=== PATIENT | male | born 1965 | race Caucasian/White ===

== ENCOUNTER 2019-06-13 11:38 | Emergency (ER) | payer OTHER, MEDICAID, SELFPAY ==
[2019-06-13 11:45] VITALS: BP 137/87; PULSE 58; RESP 18; TEMP 36.4; O2SAT 97; BMI 30.3
--- NOTE | 2019-06-13 11:49 | DI.RAD.S_ITS ---
PROCEDURE: XR HAND RT MIN 3V INDICATIONS: injury/swelling TECHNIQUE: 3 views of the hand(s) acquired. COMPARISON: None. FINDINGS: Bones: No fractures or dislocations. Carpal bones are normally aligned. No suspicious bony lesions. Soft tissues: No suspicious soft tissue calcifications. IMPRESSION: No fracture. No osseous lesion. If symptoms and/or clinical suspicion for pathology persists, further assessment with repeat radiographs (7-10 days) or advanced imaging (e.g. CT, MRI or bone scan) may be helpful. Dictated by: Bina Romero MD, PhD on 06/13/2019 at 12:31 Approved by: Bina Romero MD, PhD on 06/13/2019 at 12:32
--- NOTE | 2019-06-13 12:09 | DI.CT.S_ITS ---
PROCEDURE: CT HEAD/BRAIN WO CON INDICATIONS: dizzy, wordsearching TECHNIQUE: Noncontrast 4.5 mm thick angled axial sections acquired from the foramen magnum to the vertex, with coronal and sagittal reformats. For radiation dose reduction, the following was used: automated exposure control, adjustment of mA and/or kV according to patient size. COMPARISON: None. FINDINGS: Image quality: Excellent. CSF spaces: Basal cisterns are patent. No extra-axial fluid collections. The ventricles are symmetric in size and shape. Brain: No intracranial bleeds or masses. There is cerebral volume loss for age, with resultant ventricular and sulcal prominence. There are periventricular and deep white matter chronic small vessel ischemic changes. There is intracranial internal carotid artery atherosclerosis. Skull and face: Calvarium and visualized facial bones appear intact, without suspicious lesions. Sinuses: Visualized sinuses and mastoids are clear. IMPRESSION: No acute intracranial disease process. Dictated by: Bina Romero MD, PhD on 06/13/2019 at 12:45 Approved by: Bina Romero MD, PhD on 06/13/2019 at 12:56
[2019-06-13 12:24] LABS: Add Manual Diff / Slide Review NO; Basophils Absolute Auto 100 /uL (0-100); Basophils Percent Auto 0.8 % (0-2); Eosinophils Absolute Auto 100 /uL (0-450); Eosinophils Percent Auto 1.5 % (2-4); Hematocrit 42.3 % (41-53); Hemoglobin 14.3 g/dL (13.5-17.5); Lymphocytes Absolute Auto 2200 /uL (1100-4500); Lymphocytes Percent Auto 24.1 % (25-40); Mean Corpuscular HGB Conc 33.7 % (30-36); Mean Corpuscular Hemoglobin 32.3 PG (26-34); Mean Corpuscular Volume 95.8 fL (80-100); Monocytes Absolute Auto 600 /uL (0-900); Monocytes Percent Auto 6.7 % (3-14); Neutrophils Absolute Auto 6200 /uL (1500-7000); Neutrophils Percent Auto 66.9 % (50-75); Platelet Count 211 X10^3/uL (150-400); Red Blood Cell Count 4.42 X10^6/uL (4.5-5.9); Red Cell Distribution Width 13.3 % (11.6-14.8); White Blood Cell Count 9.2 X10^3/uL (4.5-11.0)
[2019-06-13 12:27] LABS: Prothrombin Time 11.1 SECONDS (10.1-12.7)
[2019-06-13 12:30] LABS: PTT Partial Thromboplastin Tim 31 SECONDS (26.4-36.2)
[2019-06-13 12:31] LABS: Alanine Aminotransferase 27 IU/L (21-72); Albumin 3.8 g/dL (3.5-5.0); Albumin Globulin Ratio 1.5 (1.0-2.8); Alkaline Phosphatase 72 U/L (38-126); Aspartate Aminotransferase 32 IU/L (17-59); BUN Creatinine Ratio 14.4 (6-22); Bilirubin Total 0.5 mg/dL (0.2-1.3); Blood Urea Nitrogen 13 mg/dL (9-20); Calcium 8.7 mg/dL (8.4-10.2); Carbon Dioxide 27 mmol/L (22-32); Chloride 109 mmol/L (98-107); Estimated Glomerular Filt Rate > 60.0 mL/min (>60); Globulin 2.6 g/dL (1.7-4.1); Glucose 86 mg/dL (70-100); HEMOLYSIS 23 (0-50); Potassium 4.2 mmol/L (3.4-5.1); Sodium 141 mmol/L (137-145); Total Protein 6.4 g/dL (6.3-8.2)
[2019-06-13 12:39] VITALS: BP 129/91; PULSE 48; RESP 16; O2SAT 98
[2019-06-13 12:43] LABS: Troponin I < 0.012 ng/mL (0.01-0.034)
[2019-06-13 13:00] VITALS: BP 140/77; PULSE 43; RESP 15; O2SAT 100
[2019-06-13] MEDS: SODIUM CHLORIDE 0.9% 1,000 ML 1000 ML IV (13:11)
[2019-06-13] MEDS: KETOROLAC 60 MG/2 ML VIAL 30 MG IV (13:11)
[2019-06-13] MEDS: METOCLOPRAMIDE 10 MG/2 ML INJ 5 MG IV ×2 (13:16→13:54)
[2019-06-13] MEDS: diphenhydrAMINE 50 MG/ML VIAL 25 MG IV ×2 (13:16→13:53)
[2019-06-13 13:32] VITALS: BP 142/89; PULSE 40; RESP 15; O2SAT 99
[2019-06-13] MEDS: DEXAMETHASONE 10 MG/ML VIAL IV (13:54)
--- NOTE | 2019-06-13 14:03 | PC.NURSE ---
Pt states his has had no change at all. Updated provider. Administered additional medications that were ordered. During administration pt asks what he needs to do so he could go home. informed him that we request he give the additional medications time to work. at bedside agrees and verbalizes understanding. Pt still states he wants to go home. Provider notified and states he could leave AMA. Pt updated.
[2019-06-13 14:06] LABS: Magnesium 2.2 mg/dL (1.6-2.3)
[2019-06-13 14:16] LABS: B Type Natriuretic Peptide < 100 (<100)
[2019-06-13 14:37] VITALS: BP 142/89; PULSE 48; O2SAT 98
--- NOTE | 2019-06-13 15:02 | ED.HA ---
HPI - Headache <VIKTOR Younger-BC - Last Filed: 06/13/19 18:05> General Chief Complaint: Headache Stated Complaint: Rt hand pain, head pressure,dizzy Time Seen by Provider: 06/13/19 11:51 Source: patient and family Mode of arrival: ambulatory Limitations: no limitations History of Present Illness HPI Narrative: The patient is a 54-year-old male smoker with history of migraines who presents with his for various complaints. He states he has been dizzy with headaches ongoing for the past several months. He states that when he woke up this morning, the dizziness and headaches not go away. He does have history of migraines but hot has not had 1 in many years. No loss of consciousness. No recent trauma. He denies any chest pain or shortness of breath. He also complains of some hand pain, which started yesterday. He states he caught a football wrong. He not hit his hand on anything. He complains of generalized ache. notes word searching almost ?as if he is drunk.Patient denies any drugs or alcohol. He reiterates that he has been dizzy with headaches for several months, and notes that he woke up this morning with it. His states that he can act dizzy and have headaches. Related Data Home Medications Medication Instructions Recorded Confirmed gabapentin 900 mg PO TID 06/13/19 06/13/19 ibuprofen 1 dose PO PRN PRN 06/13/19 06/13/19 losartan 100 mg PO DAILY 06/13/19 06/13/19 omeprazole 20 mg PO DAILY 06/13/19 06/13/19 Allergies Allergy/AdvReac Type Severity Reaction Status Date / Time ketamine AdvReac Severe Agitated Verified 06/13/19 12:15 Review of Systems <OBEY YoungerBC - Last Filed: 06/13/19 18:05> Review of Systems GENERAL: Denies chills, fatigue, malaise, fever, sweats. HEENT: Denies sinus pain, ear pain, sore throat, difficulty swallowing, dizziness. RESPIRATORY: Denies dyspnea, cough, wheezing, hemoptysis, sputum. CARDIOVASCULAR: Denies chest pain, palpitations, orthopnea, edema, GASTROINTESTINAL: Denies nausea, vomiting, abdominal pain, diarrhea, constipation, melena. : Denies dysuria, frequency, incontinence, hematuria, urinary retention. MUSCULOSKELETAL: See HPI SKIN: Denies rash, skin lesions, or other NEUROLOGIC: See HPI PSYCHIATRIC: No concerning psychosocial issues. 12 point review of systems is negative except for those stated above PFSH <JEFF Younger - Last Filed: 06/13/19 18:05> Medical History Chronic pain (Acute) Hypertension (Acute) Surgical History (Updated 06/13/19 @ 17:55 by JEFF Younger) Status post decompression of compartment syndrome (Acute) Social History Smoking Status: Current every day smoker Social History Smoking Status: Current every day smoker Exam <JEFF Younger - Last Filed: 06/13/19 18:05> Narrative Exam Narrative: GENERAL: This is a well-nourished, well-developed patient, no acute distress HEAD: Atraumatic. Normocephalic. No temporal or scalp tenderness. EYES: Pupils equal round and reactive. Extraocular motions intact. No scleral icterus. No injection or drainage. ENT: Nose without bleeding, purulent drainage or septal hematoma. Throat without erythema, tonsillar hypertrophy or exudate. Uvula midline. Airway patent. NECK: Trachea midline. No JVD or lymphadenopathy. Supple, nontender, no meningeal signs. CARDIOVASCULAR: Bradycardic rate. Regular rhythm. RESPIRATORY: Clear to auscultation. Breath sounds equal bilaterally. No wheezes, rales, or rhonchi. No cough. No increased respiratory effort. No accessory muscle use. GASTROINTESTINAL: Abdomen soft, non-tender, nondistended. No hepato-splenomegaly, or palpable masses. No guarding. Active bowel sounds all 4 quadrants. EXTREMITIES: Full range of motion noted right hand. Positive radial pulse right hand. Capillary refill less than 2 seconds. BACK: Nontender without deformity or crepitance. No flank tenderness. NEURO: AOx3. Clear speech. Oriented to place, year, month, marriage year. Finger-nose test intact. Carr heel test intact. Stable gait. Strength is equal upper and lower extremities bilaterally. SKIN: No rash or erythema. No rash erythema or ecchymosis noted on hand. Initial Vital Signs Initial Vital Signs: Vital Signs Temperature 97.6 F 06/13/19 11:45 Pulse Rate 58 L 06/13/19 11:45 Respiratory Rate 18 06/13/19 11:45 Blood Pressure 137/87 06/13/19 11:45 Pulse Oximetry 97 06/13/19 11:45 <Yamile Austin DO - Last Filed: 06/13/19 19:18> Initial Vital Signs Initial Vital Signs: Vital Signs Temperature 97.6 F 06/13/19 11:45 Pulse Rate 58 L 06/13/19 11:45 Respiratory Rate 18 06/13/19 11:45 Blood Pressure 137/87 06/13/19 11:45 Pulse Oximetry 97 06/13/19 11:45 Scores <JEFF Younger - Last Filed: 06/13/19 18:05> GCS Ted coma scale eye opening: Spontaneous [place] coma scale verbal response: Orientated [place] coma scale motor response: Obey commands Ted coma scale total score: 15 NIH Stroke Scale Level of Conciousness: Alert, keenly responsive Ask month/age: Answers both questions correctly. Open/close eyes, close hand: Performs both tasks correctly Best gaze horizontal: Normal Visual robles: No visual loss Facial palsy: Normal symetrical movement Left arm drift: No drift for full 10 sec Right arm drift: No drift for full 10 sec Left leg drift: No drift for full 10 sec Right leg drift: No drift for full 10 sec Limb ataxia: Absent Sensory on face/arms/legs: Normal, no sensory loss Dysarthria: Normal Extinction or inattention: No abnormality Course <JEFF Younger - Last Filed: 06/13/19 18:05> Orders Ordered: ED Orders 06/13/19 11:49 XR hand RT min 3V Stat 06/13/19 12:09 CT head/brain wo con Stat 06/13/19 12:10 EKG-12 Lead Stat 06/13/19 12:13 B Type Natriuretic Peptide Stat Complete Blood Count AUTO DIFF Stat Comprehensive Metabolic Panel Stat Magnesium Stat Partial Thromboplastin Time Stat Prothrombin Time INR Stat Troponin I Stat Discontinued Medications Dexamethasone (Decadron) 10 mg IV NOW ONE Stop: 06/13/19 13:50 Last Admin: 06/13/19 13:54 Dose: 10 mg Diphenhydramine HCl (Benadryl) 25 mg IV NOW ONE Stop: 06/13/19 13:12 Last Admin: 06/13/19 13:16 Dose: 25 mg Diphenhydramine HCl (Benadryl) 25 mg IV NOW ONE Stop: 06/13/19 13:51 Last Admin: 06/13/19 13:53 Dose: 25 mg Sodium Chloride (Normal Saline 0.9%) 1,000 mls @ 1,000 mls/hr IV BOLUS ONE Stop: 06/13/19 14:03 Last Infusion: 06/13/19 14:27 Dose: 0 mls/hr Admin: 06/13/19 13:11 Dose: 1,000 mls/hr Ketorolac Tromethamine (Toradol) 30 mg IV NOW ONE Stop: 06/13/19 13:00 Last Admin: 06/13/19 13:11 Dose: 30 mg Metoclopramide HCl (Reglan) 5 mg IV NOW ONE Stop: 06/13/19 13:12 Last Admin: 06/13/19 13:16 Dose: 5 mg Metoclopramide HCl (Reglan) 5 mg IV NOW ONE Stop: 06/13/19 13:51 Last Admin: 06/13/19 13:54 Dose: 5 mg Ondansetron HCl (Zofran) 4 mg IV NOW ONE Stop: 06/13/19 12:11 Last Admin: 06/13/19 12:35 Dose: Not Given Vital Signs - 8 hr 06/13/19 11:45 06/13/19 12:39 06/13/19 13:00 Temperature 97.6 F Pulse Rate 58 L 48 L 43 L Respiratory Rate 18 16 15 Blood Pressure 137/87 Blood Pressure [Left Arm] 129/91 H 140/77 Pulse Oximetry 97 98 100 06/13/19 13:32 06/13/19 14:37 Temperature Pulse Rate 40 L 48 L Respiratory Rate 15 Blood Pressure Blood Pressure [Left Arm] 142/89 H 142/89 H Pulse Oximetry 99 98 <Yamile Austin DO - Last Filed: 06/13/19 19:18> Orders Ordered: ED Orders 06/13/19 11:49 XR hand RT min 3V Stat 06/13/19 12:09 CT head/brain wo con Stat 06/13/19 12:10 EKG-12 Lead Stat 06/13/19 12:13 B Type Natriuretic Peptide Stat Complete Blood Count AUTO DIFF Stat Comprehensive Metabolic Panel Stat Magnesium Stat Partial Thromboplastin Time Stat Prothrombin Time INR Stat Troponin I Stat Discontinued Medications Dexamethasone (Decadron) 10 mg IV NOW ONE Stop: 06/13/19 13:50 Last Admin: 06/13/19 13:54 Dose: 10 mg Diphenhydramine HCl (Benadryl) 25 mg IV NOW ONE Stop: 06/13/19 13:12 Last Admin: 06/13/19 13:16 Dose: 25 mg Diphenhydramine HCl (Benadryl) 25 mg IV NOW ONE Stop: 06/13/19 13:51 Last Admin: 06/13/19 13:53 Dose: 25 mg Sodium Chloride (Normal Saline 0.9%) 1,000 mls @ 1,000 mls/hr IV BOLUS ONE Stop: 06/13/19 14:03 Last Infusion: 06/13/19 14:27 Dose: 0 mls/hr Admin: 06/13/19 13:11 Dose: 1,000 mls/hr Ketorolac Tromethamine (Toradol) 30 mg IV NOW ONE Stop: 06/13/19 13:00 Last Admin: 06/13/19 13:11 Dose: 30 mg Metoclopramide HCl (Reglan) 5 mg IV NOW ONE Stop: 06/13/19 13:12 Last Admin: 06/13/19 13:16 Dose: 5 mg Metoclopramide HCl (Reglan) 5 mg IV NOW ONE Stop: 06/13/19 13:51 Last Admin: 06/13/19 13:54 Dose: 5 mg Ondansetron HCl (Zofran) 4 mg IV NOW ONE Stop: 06/13/19 12:11 Last Admin: 06/13/19 12:35 Dose: Not Given Vital Signs - 8 hr 06/13/19 11:45 06/13/19 12:39 06/13/19 13:00 Temperature 97.6 F Pulse Rate 58 L 48 L 43 L Respiratory Rate 18 16 15 Blood Pressure 137/87 Blood Pressure [Left Arm] 129/91 H 140/77 Pulse Oximetry 97 98 100 06/13/19 13:32 06/13/19 14:37 Temperature Pulse Rate 40 L 48 L Respiratory Rate 15 Blood Pressure Blood Pressure [Left Arm] 142/89 H 142/89 H Pulse Oximetry 99 98 MDM - Headache <Yamile Huber P[employer] FINAL INSPECTOR- - Last Filed: 06/13/19 18:05> Lab Data Result diagrams: 06/13/19 12:13 06/13/19 12:13 Lab Results 06/13/19 06/13/19 06/13/19 Range/Units 12:13 12:13 12:13 WBC 9.2 (4.5-11.0) X10^3/uL RBC 4.42 L (4.5-5.9) X10^6/uL Hgb 14.3 (13.5-17.5) g/dL Hct 42.3 (41-53) % MCV 95.8 (80-100) fL MCH 32.3 (26-34) PG MCHC 33.7 (30-36) % RDW 13.3 (11.6-14.8) % Plt Count 211 (150-400) X10^3/uL Neut % (Auto) 66.9 (50-75) % Lymph % (Auto) 24.1 L (25-40) % [place] % (Auto) 6.7 (3-14) % Eos % (Auto) 1.5 L (2-4) % Baso % (Auto) 0.8 (0-2) % Neut # (Auto) 6200 (8516-0786) /uL Lymph # (Auto) 2200 (5441-5473) /uL [place] # (Auto) 600 (0-900) /uL Eos # (Auto) 100 (0-450) /uL Baso # (Auto) 100 (0-100) /uL PT 11.1 (10.1-12.7) SECONDS INR 1.0 (0.9-1.3) APTT 31 (26.4-36.2) SECONDS Sodium 141 (137-145) mmol/L Potassium 4.2 (3.4-5.1) mmol/L Chloride 109 H (98-107) mmol/L Carbon Dioxide 27 (22-32) mmol/L BUN 13 (9-20) mg/dL Creatinine 0.90 (0.66-1.25) mg/dL Estimated GFR > 60.0 (>60) mL/min BUN/Creatinine Ratio 14.4 (6-22) Glucose 86 (70-100) mg/dL Calcium 8.7 (8.4-10.2) mg/dL Magnesium (1.6-2.3) mg/dL Total Bilirubin 0.5 (0.2-1.3) mg/dL AST 32 (17-59) IU/L ALT 27 (21-72) IU/L Alkaline Phosphatase 72 (38-126) U/L Troponin I < 0.012 (0.01-0.034) ng/mL B-Natriuretic Peptide (<100) Total Protein 6.4 (6.3-8.2) g/dL Albumin 3.8 (3.5-5.0) g/dL Globulin 2.6 (1.7-4.1) g/dL Albumin/Globulin Ratio 1.5 (1.0-2.8) 06/13/19 06/13/19 Range/Units 12:13 12:13 WBC (4.5-11.0) X10^3/uL RBC (4.5-5.9) X10^6/uL Hgb (13.5-17.5) g/dL Hct (41-53) % MCV (80-100) fL MCH (26-34) PG MCHC (30-36) % RDW (11.6-14.8) % Plt Count (150-400) X10^3/uL Neut % (Auto) (50-75) % Lymph % (Auto) (25-40) % [place] % (Auto) (3-14) % Eos % (Auto) (2-4) % Baso % (Auto) (0-2) % Neut # (Auto) (9595-4055) /uL Lymph # (Auto) (6261-1314) /uL [place] # (Auto) (0-900) /uL Eos # (Auto) (0-450) /uL Baso # (Auto) (0-100) /uL PT (10.1-12.7) SECONDS INR (0.9-1.3) APTT (26.4-36.2) SECONDS Sodium (137-145) mmol/L Potassium (3.4-5.1) mmol/L Chloride (98-107) mmol/L Carbon Dioxide (22-32) mmol/L BUN (9-20) mg/dL Creatinine (0.66-1.25) mg/dL Estimated GFR (>60) mL/min BUN/Creatinine Ratio (6-22) Glucose (70-100) mg/dL Calcium (8.4-10.2) mg/dL Magnesium 2.2 (1.6-2.3) mg/dL Total Bilirubin (0.2-1.3) mg/dL AST (17-59) IU/L ALT (21-72) IU/L Alkaline Phosphatase (38-126) U/L Troponin I (0.01-0.034) ng/mL B-Natriuretic Peptide < 100 (<100) Total Protein (6.3-8.2) g/dL Albumin (3.5-5.0) g/dL Globulin (1.7-4.1) g/dL Albumin/Globulin Ratio (1.0-2.8) Point of Care Testing Glucose POC [address] scan - head: Radiologist's impression: [address] [address] [address] Scan Report Signed Patient: Alvaro Zimmerman [facility]#: [id number] : 1965Acct:[id number] Age/Sex: 54 / MDate of Service: 06/13/19 Loc: ED Accession Number: [id number] Procedure: CT head/brain wo con Ordering Provider: Yamile Huber [facility] PROCEDURE: CT HEAD/BRAIN WO CON INDICATIONS: dizzy, wordsearching TECHNIQUE: Noncontrast 4.5 mm thick angled axial sections acquired from the foramen magnum to the vertex, with coronal and sagittal reformats. For radiation dose reduction, the following was used: automated exposure control, adjustment of mA and/or kV according to patient size. COMPARISON: None. FINDINGS: Image quality: Excellent. CSF spaces: Basal cisterns are patent. No extra-axial fluid collections. The ventricles are symmetric in size and shape. Brain: No intracranial bleeds or masses. There is cerebral volume loss for age, with resultant ventricular and sulcal prominence. There are periventricular and deep white matter chronic small vessel ischemic changes. There is intracranial internal carotid artery atherosclerosis. Skull and face: Calvarium and visualized facial bones appear intact, without suspicious lesions. Sinuses: Visualized sinuses and mastoids are clear. IMPRESSION: No acute intracranial disease process. Dictated by: Bina Romero MD, PhD on 06/13/2019 at 12:45 Approved by: Bina Romero MD, PhD on 06/13/2019 at 12:56 Hand x-ray: Radiologist's impression: Alvaro Zimmerman 54 M [address] [address] XRay Report Signed Patient: Alvaro Zimmerman MMR#: [id number] : 1965Acct:[id number] Age/Sex: 54 / MDate of Service: 06/13/19 Loc: ED Accession Number: [id number] Procedure: XR hand RT min 3V Ordering Provider: Yamile Austin D.O. PROCEDURE: XR HAND RT MIN 3V INDICATIONS: injury/swelling TECHNIQUE: 3 views of the hand(s) acquired. COMPARISON: None. FINDINGS: Bones: No fractures or dislocations. Carpal bones are normally aligned. No suspicious bony lesions. Soft tissues: No suspicious soft tissue calcifications. IMPRESSION: No fracture. No osseous lesion. If symptoms and/or clinical suspicion for pathology persists, further assessment with repeat radiographs (7-10 days) or advanced imaging (e.g. CT, MRI or bone scan) may be helpful. Dictated by: Bina Romero MD, PhD on 06/13/2019 at 12:31 Approved by: Bina Romero MD, PhD on 06/13/2019 at 12:32 ECG Data Attestation: I personally reviewed and interpreted this ECG as follows: Interpretation: Sinus bradycardia. Ventricular rate 40. No ST elevation depression. No ectopy noted. viewed by Dr Austin [facility] Narrative Medical decision making narrative: The patient is a 54-year-old male who presents with various symptoms with his . His dizziness and headache has been ongoing for several months. He has an NIH of 0 and negative troponin, and negative head CT. He does have history of migraines, and thus I treated him for a migraine. He felt much improved after this. He also had a negative x-ray of his hand. I discussed at length the options of further imaging, further lab work, repeat troponin and the patient requested to go home. He was hemodynamically stable nontoxic appearing throughout his stay in the emergency department. I did connect him with the [facility] health human resources supervisor in order to help facilitate primary care for the patient. Again the patient declined any further imaging or workup and requested to go home. His GCS is 15, any feels much improved after his headache cocktail. The patient was discharged to his . He has no questions or concerns upon discharge and states understanding of return precautions for any concern of heart attack or stroke. No questions or concerns upon discharge. He was noted to be a bit bradycardic throughout his stay in the emergency department, but maintain his blood pressure and not feel dizzy upon ambulating. He denies any dizziness after has had a cough to help. Encouraged patient to follow up with PCP regarding this. <Yamile Austin, - Last Filed: 06/13/19 19:18> Lab Data Lab Results 06/13/19 06/13/19 06/13/19 Range/Units 12:13 12:13 12:13 WBC 9.2 (4.5-11.0) X10^3/uL RBC 4.42 L (4.5-5.9) X10^6/uL Hgb 14.3 (13.5-17.5) g/dL Hct 42.3 (41-53) % MCV 95.8 (80-100) fL MCH 32.3 (26-34) PG MCHC 33.7 (30-36) % RDW 13.3 (11.6-14.8) % Plt Count 211 (150-400) X10^3/uL Neut % (Auto) 66.9 (50-75) % Lymph % (Auto) 24.1 L (25-40) % [place] % (Auto) 6.7 (3-14) % Eos % (Auto) 1.5 L (2-4) % Baso % (Auto) 0.8 (0-2) % Neut # (Auto) 6200 (0118-8595) /uL Lymph # (Auto) 2200 (7790-1942) /uL [place] # (Auto) 600 (0-900) /uL Eos # (Auto) 100 (0-450) /uL Baso # (Auto) 100 (0-100) /uL PT 11.1 (10.1-12.7) SECONDS INR 1.0 (0.9-1.3) APTT 31 (26.4-36.2) SECONDS Sodium 141 (137-145) mmol/L Potassium 4.2 (3.4-5.1) mmol/L Chloride 109 H (98-107) mmol/L Carbon Dioxide 27 (22-32) mmol/L BUN 13 (9-20) mg/dL Creatinine 0.90 (0.66-1.25) mg/dL Estimated GFR > 60.0 (>60) mL/min BUN/Creatinine Ratio 14.4 (6-22) Glucose 86 (70-100) mg/dL Calcium 8.7 (8.4-10.2) mg/dL Magnesium (1.6-2.3) mg/dL Total Bilirubin 0.5 (0.2-1.3) mg/dL AST 32 (17-59) IU/L ALT 27 (21-72) IU/L Alkaline Phosphatase 72 (38-126) U/L Troponin I < 0.012 (0.01-0.034) ng/mL B-Natriuretic Peptide (<100) Total Protein 6.4 (6.3-8.2) g/dL Albumin 3.8 (3.5-5.0) g/dL Globulin 2.6 (1.7-4.1) g/dL Albumin/Globulin Ratio 1.5 (1.0-2.8) 06/13/19 06/13/19 Range/Units 12:13 12:13 WBC (4.5-11.0) X10^3/uL RBC (4.5-5.9) X10^6/uL Hgb (13.5-17.5) g/dL Hct (41-53) % MCV (80-100) fL MCH (26-34) PG MCHC (30-36) % RDW (11.6-14.8) % Plt Count (150-400) X10^3/uL Neut % (Auto) (50-75) % Lymph % (Auto) (25-40) % [place] % (Auto) (3-14) % Eos % (Auto) (2-4) % Baso % (Auto) (0-2) % Neut # (Auto) (9982-0170) /uL Lymph # (Auto) (3490-4199) /uL [place] # (Auto) (0-900) /uL Eos # (Auto) (0-450) /uL Baso # (Auto) (0-100) /uL PT (10.1-12.7) SECONDS INR (0.9-1.3) APTT (26.4-36.2) SECONDS Sodium (137-145) mmol/L Potassium (3.4-5.1) mmol/L Chloride (98-107) mmol/L Carbon Dioxide (22-32) mmol/L BUN (9-20) mg/dL Creatinine (0.66-1.25) mg/dL Estimated GFR (>60) mL/min BUN/Creatinine Ratio (6-22) Glucose (70-100) mg/dL Calcium (8.4-10.2) mg/dL Magnesium 2.2 (1.6-2.3) mg/dL Total Bilirubin (0.2-1.3) mg/dL AST (17-59) IU/L ALT (21-72) IU/L Alkaline Phosphatase (38-126) U/L Troponin I (0.01-0.034) ng/mL B-Natriuretic Peptide < 100 (<100) Total Protein (6.3-8.2) g/dL Albumin (3.5-5.0) g/dL Globulin (1.7-4.1) g/dL Albumin/Globulin Ratio (1.0-2.8) Point of Care Testing Glucose POC 86 Discharge Plan Departure Patient Disposition: Home Clinical Impression: Dizziness, Hand pain, right Headache Qualifiers: Headache type: unspecified Headache chronicity pattern: acute headache Intractability: not intractable Qualified Code(s): R51 - Headache Discharge Date/Time: 06/13/19 15:18 Interventions: ED Discharge Assessment Last Done: 06/13/19 15:17 Instructions: How To Perform RICE (Rest, Ice, Compress, Elevate), DI for Headache, DI for Dizziness-Nonvertigo, DI for Hand Pain Activity Restrictions/Additional Instructions: Today we did testing on your blood to check her electrolytes, check for heart damage, check your kidney function. We also did a head CT, and an EKG. Luckily everything came back well. We treated you for headache with good result. Please establish a primary care provider. I have given you contact information for the health human resources supervisor. They can help you identify primary care provider. Please call them. If needed, you can also do follow-up with our walk-in clinic. Go home and rest, be sure to stay hydrated. Come back to the emergency department for any acute concerns such as concern of chest pain, heart attack etc. Prescriptions: No Action ibuprofen 200 mg Tablet 1 dose PO PRN PRN (Reason: pain or headache) RF: 0 omeprazole 20 mg Capsule,Delayed Release(Dr/Ec) 20 mg PO DAILY RF: 0 losartan 100 mg Tablet 100 mg PO DAILY RF: 0 gabapentin 300 mg capsule 900 mg PO TID RF: 0 Referrals: Located Within [facility] Resources [Outside] Stand Alone Forms: Work Release Note <Yamile Austin DO - Last Filed: 06/13/19 19:18> Cosign ED Attending Cosignature Attestation: I was immediately available in the department for consultation. This documentation has been reviewed and I agree with assessment and plan. Supervised by Yamile Austin DO
--- NOTE | 2019-06-13 15:06 | ED_ITS ---
HPI - Headache <JEFF Younger - Last Filed: 06/13/19 18:05> General Chief Complaint: Headache Stated Complaint: Rt hand pain, head pressure,dizzy Time Seen by Provider: 06/13/19 11:51 Source: patient and family Mode of arrival: ambulatory Limitations: no limitations History of Present Illness HPI Narrative: The patient is a 54-year-old male smoker with history of migraines who presents with his for various complaints. He states he has been dizzy with headaches ongoing for the past several months. He states that when he woke up this morning, the dizziness and headaches not go away. He does have history of migraines but hot has not had 1 in many years. No loss of consc iousness. No recent trauma. He denies any chest pain or shortness of breath. He also complains of some hand pain, which started yesterday. He states he caught a football wrong. He not hit his hand on anything. He complains of generalized ache. notes word searching almost ?as if he is drunk.Patient denies any drugs or alcohol. He reiterates that he has been dizzy with headaches for several months, and notes that he woke up this morning with it. His states that he can act dizzy and have headaches. Related Data Home Medications Medication Instructions Recorded Confirmed gabapentin 900 mg PO TID 06/13/19 06/13/19 ibuprofen 1 dose PO PRN PRN 06/13/19 06/13/19 losartan 100 mg PO DAILY 06/13/19 06/13/19 omeprazole 20 mg PO DAILY 06/13/19 06/13/19 Allergies Allergy/AdvReac Type Severity Reaction Status Date / Time ketamine AdvReac Severe Agitated Verified 06/13/19 12:15 Review of Systems <JEFF Younger - Last Filed: 06/13/19 18:05> Review of Systems GENERAL: Denies chills, fatigue, malaise, fever, sweats. HEENT: Denies sinus pain, ear pain, sore throat, difficulty swallowing, dizziness. RESPIRATORY: Denies dyspnea, cough, wheezing, hemoptysis, sputum. CARDIOVASCULAR: Denies chest pain, palpitations, orthopnea, edema, GASTROINTESTINAL: Denies nausea, vomiting, abdominal pain, diarrhea, constipation, melena. : Denies dysuria, frequency, incontinence, hematuria, urinary retention. MUSCULOSKELETAL: See HPI SKIN: Denies rash, skin lesions, or other NEUROLOGIC: See HPI PSYCHIATRIC: No concerning psychosocial issues. 12 point review of systems is negative except for those stated above PFSH <JEFF Younger - Last Filed: 06/13/19 18:05> Medical History Chronic pain (Acute) Hypertension (Acute) Surgical History (Updated 06/13/19 @ 17:55 by JEFF Younger) Status post decompression of compartment syndrome (Acute) Social History Smoking Status: Current every day smoker Social History Smoking Status: Current every day smoker Exam <JEFF Younger - Last Filed: 06/13/19 18:05> Narrative Exam Narrative: GENERAL: This is a well-nourished, well-developed patient, no acute distress HEAD: Atraumatic. Normocephalic. No temporal or scalp tenderness. EYES: Pupils equal round and reactive. Extraocular motions intact. No scleral icterus. No injection or drainage. ENT: Nose without bleeding, purulent drainage or septal hematoma. Throat without erythema, tonsillar hypertrophy or exudate. Uvula midline. Airway patent. NECK: Trachea midline. No JVD or lymphadenopathy. Supple, nontender, no meningeal signs. CARDIOVASCULAR: Bradycardic rate. Regular rhythm. RESPIRATORY: Clear to auscultation. Breath sounds equal bilaterally. No wheezes, rales, or rhonchi. No cough. No increased respiratory effort. No accessory muscle use. GASTROINTESTINAL: Abdomen soft, non-tender, nondistended. No hepato- splenomegaly, or palpable masses. No guarding. Active bowel sounds all 4 quadrants. EXTREMITIES: Full range of motion noted right hand. Positive radial pulse right hand. Capillary refill less than 2 seconds. BACK: Nontender without deformity or crepitance. No flank tenderness. NEURO: AOx3. Clear speech. Oriented to place, year, month, marriage year. Finger-nose test intact. Carr heel test intact. Stable gait. Strength is equal upper and lower extremities bilaterally. SKIN: No rash or erythema. No rash erythema or ecchymosis noted on hand. Initial Vital Signs Initial Vital Signs: Vital Signs Temperature 97.6 F 06/13/19 11:45 Pulse Rate 58 L 06/13/19 11:45 Respiratory Rate 18 06/13/19 11:45 Blood Pressure 137/87 06/13/19 11:45 Pulse Oximetry 97 06/13/19 11:45 <Yamile Austin DO - Last Filed: 06/13/19 19:18> Initial Vital Signs Initial Vital Signs: Vital Signs Temperature 97.6 F 06/13/19 11:45 Pulse Rate 58 L 06/13/19 11:45 Respiratory Rate 18 06/13/19 11:45 Blood Pressure 137/87 06/13/19 11:45 Pulse Oximetry 97 06/13/19 11:45 Scores <JEFF Younger - Last Filed: 06/13/19 18:05> GCS Kaycee coma scale eye opening: Spontaneous Ted coma scale verbal response: Orientated Ted coma scale motor response: Obey commands Kaycee coma scale total score: 15 NIH Stroke Scale Level of Conciousness: Alert, keenly responsive Ask month/age: Answers both questions correctly. Open/close eyes, close hand: Performs both tasks correctly Best gaze horizontal: Normal Visual robles: No visual loss Facial palsy: Normal symetrical movement Left arm drift: No drift for full 10 sec Right arm drift: No drift for full 10 sec Left leg drift: No drift for full 10 sec Right leg drift: No drift for full 10 sec Limb ataxia: Absent Sensory on face/arms/legs: Normal, no sensory loss Dysarthria: Normal Extinction or inattention: No abnormality Course <JEFF Younger - Last Filed: 06/13/19 18:05> Orders Ordered: ED Orders 06/13/19 11:49 XR hand RT min 3V Stat 06/13/19 12:09 CT head/brain wo con Stat 06/13/19 12:10 EKG-12 Lead Stat 06/13/19 12:13 B Type Natriuretic Peptide Stat Complete Blood Count AUTO DIFF Stat Comprehensive Metabolic Panel Stat Magnesium Stat Partial Thromboplastin Time Stat Prothrombin Time INR Stat Troponin I Stat Discontinued Medications Dexamethasone (Decadron) 10 mg IV NOW ONE Stop: 06/13/19 13:50 Last Admin: 06/13/19 13:54 Dose: 10 mg Diphenhydramine HCl (Benadryl) 25 mg IV NOW ONE Stop: 06/13/19 13:12 Last Admin: 06/13/19 13:16 Dose: 25 mg Diphenhydramine HCl (Benadryl) 25 mg IV NOW ONE Stop: 06/13/19 13:51 Last Admin: 06/13/19 13:53 Dose: 25 mg Sodium Chloride (Normal Saline 0.9%) 1,000 mls @ 1,000 mls/hr IV BOLUS ONE Stop: 06/13/19 14:03 Last Infusion: 06/13/19 14:27 Dose: 0 mls/hr Admin: 06/13/19 13:11 Dose: 1,000 mls/hr Ketorolac Tromethamine (Toradol) 30 mg IV NOW ONE Stop: 06/13/19 13:00 Last Admin: 06/13/19 13:11 Dose: 30 mg Metoclopramide HCl (Reglan) 5 mg IV NOW ONE Stop: 06/13/19 13:12 Last Admin: 06/13/19 13:16 Dose: 5 mg Metoclopramide HCl (Reglan) 5 mg IV NOW ONE Stop: 06/13/19 13:51 Last Admin: 06/13/19 13:54 Dose: 5 mg Ondansetron HCl (Zofran) 4 mg IV NOW ONE Stop: 06/13/19 12:11 Last Admin: 06/13/19 12:35 Dose: Not Given Vital Signs - 8 hr 06/13/19 11:45 06/13/19 12:39 06/13/19 13:00 Temperature 97.6 F Pulse Rate 58 L 48 L 43 L Respiratory Rate 18 16 15 Blood Pressure 137/87 Blood Pressure [Left Arm] 129/91 H 140/77 Pulse Oximetry 97 98 100 06/13/19 13:32 06/13/19 14:37 Temperature Pulse Rate 40 L 48 L Respiratory Rate 15 Blood Pressure Blood Pressure [Left Arm] 142/89 H 142/89 H Pulse Oximetry 99 98 <Yamile Austin DO - Last Filed: 06/13/19 19:18> Orders Ordered: ED Orders 06/13/19 11:49 XR hand RT min 3V Stat 06/13/19 12:09 CT head/brain wo con Stat 06/13/19 12:10 EKG-12 Lead Stat 06/13/19 12:13 B Type Natriuretic Peptide Stat Complete Blood Count AUTO DIFF Stat Comprehensive Metabolic Panel Stat Magnesium Stat Partial Thromboplastin Time Stat Prothrombin Time INR Stat Troponin I Stat Discontinued Medications Dexamethasone (Decadron) 10 mg IV NOW ONE Stop: 06/13/19 13:50 Last Admin: 06/13/19 13:54 Dose: 10 mg Diphenhydramine HCl (Benadryl) 25 mg IV NOW ONE Stop: 06/13/19 13:12 Last Admin: 06/13/19 13:16 Dose: 25 mg Diphenhydramine HCl (Benadryl) 25 mg IV NOW ONE Stop: 06/13/19 13:51 Last Admin: 06/13/19 13:53 Dose: 25 mg Sodium Chloride (Normal Saline 0.9%) 1,000 mls @ 1,000 mls/hr IV BOLUS ONE Stop: 06/13/19 14:03 Last Infusion: 06/13/19 14:27 Dose: 0 mls/hr Admin: 06/13/19 13:11 Dose: 1,000 mls/hr Ketorolac Tromethamine (Toradol) 30 mg IV NOW ONE Stop: 06/13/19 13:00 Last Admin: 06/13/19 13:11 Dose: 30 mg Metoclopramide HCl (Reglan) 5 mg IV NOW ONE Stop: 06/13/19 13:12 Last Admin: 06/13/19 13:16 Dose: 5 mg Metoclopramide HCl (Reglan) 5 mg IV NOW ONE Stop: 06/13/19 13:51 Last Admin: 06/13/19 13:54 Dose: 5 mg Ondansetron HCl (Zofran) 4 mg IV NOW ONE Stop: 06/13/19 12:11 Last Admin: 06/13/19 12:35 Dose: Not Given Vital Signs - 8 hr 06/13/19 11:45 06/13/19 12:39 06/13/19 13:00 Temperature 97.6 F Pulse Rate 58 L 48 L 43 L Respiratory Rate 18 16 15 Blood Pressure 137/87 Blood Pressure [Left Arm] 129/91 H 140/77 Pulse Oximetry 97 98 100 06/13/19 13:32 06/13/19 14:37 Temperature Pulse Rate 40 L 48 L Respiratory Rate 15 Blood Pressure Blood Pressure [Left Arm] 142/89 H 142/89 H Pulse Oximetry 99 98 MDM - Headache <Yamile HuberLORENZOP- - Last Filed: 06/13/19 18:05> Lab Data Result diagrams: 06/13/19 12:13 06/13/19 12:13 Lab Results 06/13/19 06/13/19 06/13/19 Range/Units 12:13 12:13 12:13 WBC 9.2 (4.5-11.0) X10^3/uL RBC 4.42 L (4.5-5.9) X10^6/uL Hgb 14.3 (13.5-17.5) g/dL Hct 42.3 (41-53) % MCV 95.8 (80-100) fL MCH 32.3 (26-34) PG MCHC 33.7 (30-36) % RDW 13.3 (11.6-14.8) % Plt Count 211 (150-400) X10^3/uL Neut % (Auto) 66.9 (50-75) % Lymph % (Auto) 24.1 L (25-40) % Talbot % (Auto) 6.7 (3-14) % Eos % (Auto) 1.5 L (2-4) % Baso % (Auto) 0.8 (0-2) % Neut # (Auto) 6200 (0324-6599) /uL Lymph # (Auto) 2200 (6388-2084) /uL Talbot # (Auto) 600 (0-900) /uL Eos # (Auto) 100 (0-450) /uL Baso # (Auto) 100 (0-100) /uL PT 11.1 (10.1-12.7) SECONDS INR 1.0 (0.9-1.3) APTT 31 (26.4-36.2) SECONDS Sodium 141 (137-145) mmol/L Potassium 4.2 (3.4-5.1) mmol/L Chloride 109 H (98-107) mmol/L Carbon Dioxide 27 (22-32) mmol/L BUN 13 (9-20) mg/dL Creatinine 0.90 (0.66-1.25) mg/dL Estimated GFR > 60.0 (>60) mL/min BUN/Creatinine Ratio 14.4 (6-22) Glucose 86 (70-100) mg/dL Calcium 8.7 (8.4-10.2) mg/dL Magnesium (1.6-2.3) mg/dL Total Bilirubin 0.5 (0.2-1.3) mg/dL AST 32 (17-59) IU/L ALT 27 (21-72) IU/L Alkaline Phosphatase 72 (38-126) U/L Troponin I < 0.012 (0.01-0.034) ng/mL B-Natriuretic Peptide (<100) Total Protein 6.4 (6.3-8.2) g/dL Albumin 3.8 (3.5-5.0) g/dL Globulin 2.6 (1.7-4.1) g/dL Albumin/Globulin Ratio 1.5 (1.0-2.8) 06/13/19 06/13/19 Range/Units 12:13 12:13 WBC (4.5-11.0) X10^3/uL RBC (4.5-5.9) X10^6/uL Hgb (13.5-17.5) g/dL Hct (41-53) % MCV (80-100) fL MCH (26-34) PG MCHC (30-36) % RDW (11.6-14.8) % Plt Count (150-400) X10^3/uL Neut % (Auto) (50-75) % Lymph % (Auto) (25-40) % Talbot % (Auto) (3-14) % Eos % (Auto) (2-4) % Baso % (Auto) (0-2) % Neut # (Auto) (4852-0106) /uL Lymph # (Auto) (6590-1125) /uL Talbot # (Auto) (0-900) /uL Eos # (Auto) (0-450) /uL Baso # (Auto) (0-100) /uL PT (10.1-12.7) SECONDS INR (0.9-1.3) APTT (26.4-36.2) SECONDS Sodium (137-145) mmol/L Potassium (3.4-5.1) mmol/L Chloride (98-107) mmol/L Carbon Dioxide (22-32) mmol/L BUN (9-20) mg/dL Creatinine (0.66-1.25) mg/dL Estimated GFR (>60) mL/min BUN/Creatinine Ratio (6-22) Glucose (70-100) mg/dL Calcium (8.4-10.2) mg/dL Magnesium 2.2 (1.6-2.3) mg/dL Total Bilirubin (0.2-1.3) mg/dL AST (17-59) IU/L ALT (21-72) IU/L Alkaline Phosphatase (38-126) U/L Troponin I (0.01-0.034) ng/mL B-Natriuretic Peptide < 100 (<100) Total Protein (6.3-8.2) g/dL Albumin (3.5-5.0) g/dL Globulin (1.7-4.1) g/dL Albumin/Globulin Ratio (1.0-2.8) Point of Care Testing Glucose POC [address] scan - head: Radiologist's impression: [place] [address] CT Scan Report Signed Patient: Alvaro Zimmerman MMR#: [id number] : 1965Acct:[id number] Age/Sex: 54 / MDate of Service: 06/13/19 Loc: ED Accession Number: [id number] Procedure: CT head/brain wo con Ordering Provider: Yamile Huber PROCEDURE: CT HEAD/BRAIN WO CON INDICATIONS: dizzy, wordsearching TECHNIQUE: Noncontrast 4.5 mm thick angled axial sections acquired from the foramen magnum to the vertex, with coronal and sagittal reformats. For radiation dose reduction, the following was used: automated exposure control, adjustment of mA and/or kV according to patient size. COMPARISON: None. FINDINGS: Image quality: Excellent. CSF spaces: Basal cisterns are patent. No extra-axial fluid collections. The ventricles are symmetric in size and shape. Brain: No intracranial bleeds or masses. There is cerebral volume loss for age, with resultant ventricular and sulcal prominence. There are periventricular and deep white matter chronic small vessel ischemic changes. There is intracranial internal carotid artery atherosclerosis. Skull and face: Calvarium and visualized facial bones appear intact, without suspicious lesions. Sinuses: Visualized sinuses and mastoids are clear. IMPRESSION: No acute intracranial disease process. Dictated by: Bina Romero MD, PhD on 06/13/2019 at 12:45 Approved by: Bina Romero MD, PhD on 06/13/2019 at 12:56 Hand x-ray: Radiologist's impression: Alvaro Zimmerman 54 M [address] [address] XRay Report Signed Patient: Alvaro Zimmerman MMR#: [id number] : 1965Acct:[id number] Age/Sex: 54 / MDate of Service: 06/13/19 Loc: ED Accession Number: [id number] Procedure: XR hand RT min 3V Ordering Provider: Yamile Austin D.O. PROCEDURE: XR HAND RT MIN 3V INDICATIONS: injury/swelling TECHNIQUE: 3 views of the hand(s) acquired. COMPARISON: None. FINDINGS: Bones: No fractures or dislocations. Carpal bones are normally aligned. No suspicious bony lesions. Soft tissues: No suspicious soft tissue calcifications. IMPRESSION: No fracture. No osseous lesion. If symptoms and/or clinical suspicion for pathology persists, further assessment with repeat radiographs (7-10 days) or advanced imaging (e.g. CT, MRI or bone scan) may be helpful. Dictated by: Bina Romero MD, PhD on 06/13/2019 at 12:31 Approved by: Bina Romero MD, PhD on 06/13/2019 at 12:32 ECG Data Attestation: I personally reviewed and interpreted this ECG as follows: Interpretation: Sinus bradycardia. Ventricular rate 40. No ST elevation depression. No ectopy noted. viewed by Dr Austin [facility] Narrative Medical decision making narrative: The patient is a 54-year-old male who presents with various symptoms with his . His dizziness and headache has been ongoing for several months. He has an NIH of 0 and negative troponin, and negative head CT. He does have history of migraines, and thus I treated him for a migraine. He felt much improved after this. He also had a negative x-ray of his hand. I discussed at length the options of further imaging, further lab work, repeat troponin and the patient requested to go home. He was hemodynamically stable nontoxic appearing throughout his stay in the emergency department. I did connect him with the [facility] health human resources team member in order to help facilitate primary care for the patient. Again the patient declined any further imaging or workup and requested to go home. His GCS is 15, any feels much improved after his headache cocktail. The patient was discharged to his . He has no questions or concerns upon discharge and states understanding of return precautions for any concern of heart attack or stroke. No questions or concerns upon discharge. He was noted to be a bit bradycardic throughout his stay in the emergency department, but maintain his blood pressure and not feel dizzy upon ambulating. He denies any dizziness after has had a cough to help. Encouraged patient to follow up with PCP regarding this. <Yamile Austin, - Last Filed: 06/13/19 19:18> Lab Data Lab Results 06/13/19 06/13/19 06/13/19 Range/Units 12:13 12:13 12:13 WBC 9.2 (4.5-11.0) X10^3/uL RBC 4.42 L (4.5-5.9) X10^6/uL Hgb 14.3 (13.5-17.5) g/dL Hct 42.3 (41-53) % MCV 95.8 (80-100) fL MCH 32.3 (26-34) PG MCHC 33.7 (30-36) % RDW 13.3 (11.6-14.8) % Plt Count 211 (150-400) X10^3/uL Neut % (Auto) 66.9 (50-75) % Lymph % (Auto) 24.1 L (25-40) % Talbot % (Auto) 6.7 (3-14) % Eos % (Auto) 1.5 L (2-4) % Baso % (Auto) 0.8 (0-2) % Neut # (Auto) 6200 (4901-7499) /uL Lymph # (Auto) 2200 (4681-3177) /uL Talbot # (Auto) 600 (0-900) /uL Eos # (Auto) 100 (0-450) /uL Baso # (Auto) 100 (0-100) /uL PT 11.1 (10.1-12.7) SECONDS INR 1.0 (0.9-1.3) APTT 31 (26.4-36.2) SECONDS Sodium 141 (137-145) mmol/L Potassium 4.2 (3.4-5.1) mmol/L Chloride 109 H (98-107) mmol/L Carbon Dioxide 27 (22-32) mmol/L BUN 13 (9-20) mg/dL Creatinine 0.90 (0.66-1.25) mg/dL Estimated GFR > 60.0 (>60) mL/min BUN/Creatinine Ratio 14.4 (6-22) Glucose 86 (70-100) mg/dL Calcium 8.7 (8.4-10.2) mg/dL Magnesium (1.6-2.3) mg/dL Total Bilirubin 0.5 (0.2-1.3) mg/dL AST 32 (17-59) IU/L ALT 27 (21-72) IU/L Alkaline Phosphatase 72 (38-126) U/L Troponin I < 0.012 (0.01-0.034) ng/mL B-Natriuretic Peptide (<100) Total Protein 6.4 (6.3-8.2) g/dL Albumin 3.8 (3.5-5.0) g/dL Globulin 2.6 (1.7-4.1) g/dL Albumin/Globulin Ratio 1.5 (1.0-2.8) 06/13/19 06/13/19 Range/Units 12:13 12:13 WBC (4.5-11.0) X10^3/uL RBC (4.5-5.9) X10^6/uL Hgb (13.5-17.5) g/dL Hct (41-53) % MCV (80-100) fL MCH (26-34) PG MCHC (30-36) % RDW (11.6-14.8) % Plt Count (150-400) X10^3/uL Neut % (Auto) (50-75) % Lymph % (Auto) (25-40) % Talbot % (Auto) (3-14) % Eos % (Auto) (2-4) % Baso % (Auto) (0-2) % Neut # (Auto) (2618-1360) /uL Lymph # (Auto) (6617-4886) /uL Talbot # (Auto) (0-900) /uL Eos # (Auto) (0-450) /uL Baso # (Auto) (0-100) /uL PT (10.1-12.7) SECONDS INR (0.9-1.3) APTT (26.4-36.2) SECONDS Sodium (137-145) mmol/L Potassium (3.4-5.1) mmol/L Chloride (98-107) mmol/L Carbon Dioxide (22-32) mmol/L BUN (9-20) mg/dL Creatinine (0.66-1.25) mg/dL Estimated GFR (>60) mL/min BUN/Creatinine Ratio (6-22) Glucose (70-100) mg/dL Calcium (8.4-10.2) mg/dL Magnesium 2.2 (1.6-2.3) mg/dL Total Bilirubin (0.2-1.3) mg/dL AST (17-59) IU/L ALT (21-72) IU/L Alkaline Phosphatase (38-126) U/L Troponin I (0.01-0.034) ng/mL B-Natriuretic Peptide < 100 (<100) Total Protein (6.3-8.2) g/dL Albumin (3.5-5.0) g/dL Globulin (1.7-4.1) g/dL Albumin/Globulin Ratio (1.0-2.8) Point of Care Testing Glucose POC 86 Discharge Plan Departure Patient Disposition: Home Clinical Impression: Dizziness, Hand pain, right Headache Qualifiers: Headache type: unspecified Headache chronicity pattern: acute headache Intractability: not intractable Qualified Code(s): R51 - Headache Discharge Date/Time: 06/13/19 15:18 Interventions: ED Discharge Assessment Last Done: 06/13/19 15:17 Instructions: How To Perform RICE (Rest, Ice, Compress, Elevate), DI for Headache, DI for Dizziness-Nonvertigo, DI for Hand Pain Activity Restrictions/Additional Instructions: Today we did testing on your blood to check her electrolytes, check for heart damage, check your kidney function. We also did a head CT, and an EKG. Luckily everything came back well. We treated you for headache with good result. Please establish a primary care provider. I have given you contact information for the health human resources team member. They can help you identify primary care provider. Please call them. If needed, you can also do follow-up with our walk-in clinic. Go home and rest, be sure to stay hydrated. Come back to the emergency department for any acute concerns such as concern of chest pain, heart attack etc. Prescriptions: No Action ibuprofen 200 mg Tablet 1 dose PO PRN PRN (Reason: pain or headache) RF: 0 omeprazole 20 mg Capsule,Delayed Release(Dr/Ec) 20 mg PO DAILY RF: 0 losartan 100 mg Tablet 100 mg PO DAILY RF: 0 gabapentin 300 mg capsule 900 mg PO TID RF: 0 Referrals: [facility] [Outside] Stand Alone Forms: Work Release Note <Yamile Austin DO - Last Filed: 06/13/19 19:18> Cosign ED Attending Cosignature Attestation: I was immediately available in the department for consultation. This documentation has been reviewed and I agree with assessment and plan. Supervised by Yamile Austin DO
== END 2019-06-13 15:18 | disposition home or self-care (01) ==
PROVIDERS: Emergency Provider Nurse Practitioner Family
DX: R51 Headache (principal); R42 Dizziness and giddiness; M79.641 Pain in right hand
CPT/HCPCS: 36591; 70450; 73130; 80053; 82962; 83735; 83880; 84484; 85025; 85610; 85730; 93005; 93010; 96361; 96374; 96375; 96376; 99283; 99285; J1100; J1200; J1885; J2765

== ENCOUNTER 2019-10-01 20:46 | Emergency (ER) | payer SELFPAY ==
[2019-10-01 20:56] VITALS: BP 178/120; PULSE 60; RESP 20; TEMP 36.8; O2SAT 99
[2019-10-01 21:22] VITALS: BP 155/108; PULSE 55; RESP 20; O2SAT 100
--- NOTE | 2019-10-01 21:45 | ED.BACK ---
HPI - Back Pain/Injury General Chief Complaint: Back Pain/Injury Stated Complaint: rt sided numbness, weakness Time Seen by Provider: 10/01/19 21:45 Source: patient Mode of arrival: Ambulatory Limitations: no limitations History of Present Illness HPI Narrative: This is a 54-year-old male comes to the emergency with complaint of right-sided back pain that he describes as more lower back. He states he does not really have a lot of abdominal pain. He has felt little bit dizzy, he has felt a little bit nauseated. He has not had any vomiting. He describes some tingling in his right arm. But he states that he always gets tingling in symptoms in his right arm when he has had diverticulitis on the right side in the past. His family states they do not understand why but this is what has happened. He also has a history of pain in his right lower extremity secondary to compartment syndrome he has not had any increase in pain in his legs or numbness or tingling. Patient denies any testicular pain. he denies any changes with bowel movements. He states he has been urinating and finding that he is urinating more frequently and feels like it is more than normal. He has also been drinking a lot of Gatorade according to his much more than normal. Patient denies any rash or skin changes. He states movement does make it worse. He has had some back issues in the past but not chronically. He does take gabapentin for pain regularly and ibuprofen but more for his lower extremity which he had compartment syndrome. He had a takes losartan, omeprazole. He has had right shoulder surgery, gallbladder surgery, and surgeries for his lower extremity/compartment syndrome. He does smoke tobacco states he is trying to decrease his a usage. Denies alcohol, denies illicit. Related Data Home Medications Medication Instructions Recorded Confirmed gabapentin 900 mg PO TID 06/13/19 06/13/19 ibuprofen 1 dose PO PRN PRN 06/13/19 06/13/19 losartan 100 mg PO DAILY 06/13/19 06/13/19 omeprazole 20 mg PO DAILY 06/13/19 06/13/19 Previous Rx's Medication Instructions Recorded oxycodone-acetaminophen [Percocet] 1 tab PO Q6H PRN #10 tab 10/02/19 Allergies Allergy/AdvReac Type Severity Reaction Status Date / Time ketamine AdvReac Severe Agitated Verified 06/13/19 12:15 Review of Systems Review of Systems ROS Unobtainable: All systems reviewed & are unremarkable except as noted in HPI and below Constitutional Constitutional: Denies chills, Denies fever(s), Denies lethargy and Denies weakness Eyes Eyes: Denies change in vision ENT Ears, Nose, Mouth, and Throat: Denies nasal congestion Cardiovascular Cardiovascular: Denies chest pain, Denies edema, Denies irregular heart rhythm, Denies lightheadedness, Denies palpitations, Denies dyspnea, Denies dyspnea on exertion and Denies orthopnea Respiratory Respiratory: Denies change in phlegm color, Denies chest congestion, Denies cough, Denies dyspnea and Denies dyspnea on exertion Gastrointestinal Gastrointestinal: Denies abdominal pain, Denies melena, Denies hematochezia, Denies change in bowel habits, Denies constipation, Denies diarrhea, Reports nausea and Denies vomiting Genitourinary Genitourinary: Denies hematuria, Denies difficulty urinating, Denies genital pain, Denies dysuria, Denies flank pain, Denies scrotal swelling, Denies testicular pain, Reports urinary frequency, Denies urinary hesitancy, Denies urinary incontinence and Denies urinary urgency Musculoskeletal Musculoskeletal: Reports as per HPI, Reports back pain, Denies muscle weakness and Reports tingling (chronic in leg) Integumentary/Breasts Skin/Breast: Denies rash Neurologic Neurologic: Reports as per HPI, Denies focal weakness, Denies sensory deficit, Reports tingling (chronic in leg) and Denies weakness Endocrine Endocrine: Denies palpitations Patient History Medical History (Updated 10/02/19 @ 00:35 by Yamile Austin DO) Chronic pain (Acute) Compartment syndrome (Acute) Hypertension (Acute) Surgical History Status post decompression of compartment syndrome (Acute) Social History Smoking Status: Current every day smoker alcohol intake frequency: other Substance Use Type: does not use Exam Narrative Exam Narrative: GENERAL: Alert and oriented x three, obese male in mild distress. HEENT: Head normocephalic, atraumatic, EOMI, pupils reactive, face symmetric, moist mucous membranes NECK: Supple, full range of motion CARDIOVASCULAR: Regular rate and rhythm without murmurs, rubs or gallops. RESPIRATORY: Breath sounds equal bilaterally, no wheezes rales or rhonchi. ABDOMEN: Soft, positive for moderate right lower quadrant tenderness as well as some mild right upper quadrant. Normoactive bowel sounds all 4 quadrants. No guarding or rebound, rigidity, no mass : Positive for bilateral CVA tenderness. BACK: No cervical, thoracic or lumbar vertebral point tenderness. Patient has decreased range of motion, patient is quite uncomfortable being moved into a sitting up position. Patient's gait is [antalgic/normal]. Rectal exam is deferred. Muscle strength is 5/5 in lower extremities. EXTREMITIES: Normal range of motion, no clubbing or edema. Neurovascularly intact NEUROLOGICAL: Cranial nerves II through XII grossly intact. Moving all extremities SKIN: Warm, dry, no petechiae, no rashes or lesions. Initial Vital Signs Initial Vital Signs: Vital Signs Temperature 98.2 F 10/01/19 20:56 Pulse Rate 60 10/01/19 20:56 Respiratory Rate 20 10/01/19 20:56 Blood Pressure 178/120 H 10/01/19 20:56 Pulse Oximetry 99 10/01/19 20:56 Course Orders Ordered: ED Orders 10/01/19 21:10 Complete Blood Count AUTO DIFF Stat Comprehensive Metabolic Panel Stat Lipase Stat 10/01/19 21:30 Urine Microscopic Stat 10/01/19 22:03 CT abdomen pelvis w con Stat Discontinued Medications Diazepam (Valium) 10 mg PO NOW ONE Stop: 10/01/19 23:19 Last Admin: 10/01/19 23:31 Dose: 10 mg Documented by: VIVIANA Hydromorphone HCl (Dilaudid) 1 mg IV NOW ONE Stop: 10/01/19 23:19 Last Admin: 10/01/19 23:31 Dose: 1 mg Documented by: MIKIFFIE Hydromorphone HCl (Dilaudid) 1 mg IV NOW ONE Stop: 10/02/19 00:31 Last Admin: 10/02/19 00:40 Dose: 1 mg Documented by: GABRIEL Sodium Chloride (Normal Saline 0.9%) 1,000 mls @ 1,000 mls/hr IV BOLUS ONE Stop: 10/01/19 23:01 Last Infusion: 10/01/19 23:39 Dose: 0 mls/hr Documented by: Admin: 10/01/19 22:17 Dose: 1,000 mls/hr Documented by: EVERETT Ketorolac Tromethamine (Toradol) 30 mg IV NOW ONE Stop: 10/01/19 22:03 Last Admin: 10/01/19 22:18 Dose: 30 mg Documented by: EVERETT Morphine Sulfate (Morphine) 4 mg IV NOW ONE Stop: 10/01/19 22:54 Last Admin: 10/01/19 22:57 Dose: 4 mg Documented by: EVERETT Ondansetron HCl (Zofran) 4 mg IV NOW ONE Stop: 10/01/19 22:03 Last Admin: 10/01/19 22:18 Dose: 4 mg Documented by: EVERETT Oxycodone/Acetaminophen (Endocet 5/325 Prepack) 1 bottle MISC SEEINSTR ONE Stop: 10/02/19 00:31 Last Admin: 10/02/19 00:40 Dose: 1 bottle Documented by: GABRIEL Vital Signs Vital signs: Vital Signs - 8 hr 10/01/19 20:56 10/01/19 21:22 10/01/19 23:10 Temperature 98.2 F Pulse Rate 60 55 L 60 Respiratory Rate 20 20 18 Blood Pressure 178/120 H Blood Pressure [Right Arm] 155/108 H 190/108 H Pulse Oximetry 99 100 99 10/02/19 00:13 10/02/19 00:59 Temperature Pulse Rate 65 65 Respiratory Rate 18 18 Blood Pressure 177/119 H Blood Pressure [Right Arm] 186/127 H Pulse Oximetry 100 98 MDM - Back Pain/Injury Lab Data Attestation: I reviewed the patient's lab results. Result diagrams: 10/01/19 21:10 10/01/19 21:10 Labs: Lab Results 10/01/19 10/01/19 10/01/19 Range/Units 21:10 21:10 21:30 WBC 11.7 H (4.5-11.0) X10^3/uL RBC 4.52 (4.5-5.9) X10^6/uL Hgb 14.6 (13.5-17.5) g/dL Hct 42.7 (41-53) % MCV 94.6 (80-100) fL MCH 32.3 (26-34) PG MCHC 34.2 (30-36) % RDW 13.1 (11.6-14.8) % Plt Count 242 (150-400) X10^3/uL Neut % (Auto) 71.7 (50-75) % Lymph % (Auto) 19.2 L (25-40) % [place] % (Auto) 7.5 (3-14) % Eos % (Auto) 1.1 L (2-4) % Baso % (Auto) 0.5 (0-2) % Neut # (Auto) 8400 H (6829-8321) /uL Lymph # (Auto) 2200 (9581-7005) /uL [place] # (Auto) 900 (0-900) /uL Eos # (Auto) 100 (0-450) /uL Baso # (Auto) 100 (0-100) /uL Sodium 140 (137-145) mmol/L Potassium 4.2 (3.4-5.1) mmol/L Chloride 105 (98-107) mmol/L Carbon Dioxide 26 (22-32) mmol/L BUN 15 (9-20) mg/dL Creatinine 0.90 (0.66-1.25) mg/dL Estimated GFR > 60.0 (>60) mL/min BUN/Creatinine Ratio 16.7 (6-22) Glucose 106 H (70-100) mg/dL Calcium 8.7 (8.4-10.2) mg/dL Total Bilirubin 0.7 (0.2-1.3) mg/dL AST 43 (17-59) IU/L ALT 25 (<50) IU/L Alkaline Phosphatase 61 (38-126) U/L Total Protein 7.0 (6.3-8.2) g/dL Albumin 4.3 (3.5-5.0) g/dL Globulin 2.7 (1.7-4.1) g/dL Albumin/Globulin Ratio 1.6 (1.0-2.8) Lipase 86 (23-300) U/L Urine RBC 0-1/hpf (0-5/HPF) Urine WBC 1-5/hpf (0-5/HPF) Ur Squamous Epith Cells 1-5 /hpf (0-5/HPF) Urine Bacteria Occasional (0-1) (None) Ur Culture Indicated? Cult not indicated Urine Dip Bedside Urine Glucose Negative Bedside Urine Ketone +/- 5 Urine Specific [place] 1.015 Bedside Urine Occult Blood - Negative Bedside Urine Protein +/- 15 Bedside Urine Urobilinogen 0.2 Bedside Urine Nitrite - Negative Bedside Urine Leukocytes +/- [address] scan - abdomen: Radiologist's impression: Mild descending and sigmoid colon diverticulosis without diverticulitis. No free intraperitoneal air or fluid. Mild left hydro with nondilated ureter may reflect chronic UPJ obstruction. No cortical atrophy, scarring or thinning. 13 x 12 mm left adrenal nodule. Consider outpatient nonemergent MR CT workup. Year old thickening of the urinary bladder. Edema surrounds urinary bladder and prostate. Cystitis or prostatitis may be present. Other chronic changes noted above. MDM Narrative Medical decision making narrative: Patient has some tenderness on back exam although not over the vertebral column. He also has tenderness in his abdominal exam. He has had a history colitis and diverticulitis as well. So plan for lab work, imaging and repeated evaluation. Patient's lab work does not show any abnormalities that clearly delineate his cause of pain, has a mildly elevated white count 11.7, electrolytes are normal, glucose is 106, patient's abdominal labs are normal. urine microscopy shows 1 5 WBCs, 1-5 squamous epithelial. Patient's urine was cultured S patient CT shows bladder with mural thickening and surrounding edema. Patient has moderately enlarged prostate gland with surrounding edema. He has no pathologic pelvic it lymphadenopathy this could potentially be causes pain although his pain is more right lower back little bit right lower quadrant and sort of generalized abdomen. Patient has normal lungs, unremarkable upper abdomen. Normal caliber abdominal aorta with no pathologic emily aortic adenopathy. He does have a adrenal nodule that him and his were informed about and recommended to have follow-up for evaluation although my suspicion that this is the cause of his pain is low. He has no mass or nephrolithiasis. He has some mild left hydro with a nondilated ureter and small extra renal pelvis on the right patient hydro is not consistent with the location of his pain. He has felt stool throughout the colon but without mass or inflammation, diverticulosis but no diverticulitis. No thickening of the bowel, no focal gastric lesions free intraperitoneal air or fluid. He has some moderate spondylosis of the lumbar spine but no fracture destructive osseous lesions any right femoral neck bone island. Findings were discussed patient I suspect that his pain is related more to back issues. Has chronic pain in his right lower extremity but this is not significantly increased from his normal. He does not have any red flag symptoms today. He has been hypertensive but is not follow-up with primary care and likely needs to have his medication restarted. Patient has recently decreased his gabapentin is only taking 3 tablets in the morning and not 3 times daily which may be related to his flaring pain. He has been taking ibuprofen. He had minimal to no improvement with Toradol, morphine was minimally improvement Dilaudid was helpful but pain did not return. He appears uncomfortable but improved. Discussed with patient we will do an additional dose with plan for her chronic pain medication at home for the short term and plantar increase his gabapentin, lidocaine patches and signs and symptoms to return for emergently. Both him and his feel comfortable with this plan. Discharge Plan Departure Patient Disposition: Home Clinical Impression: Right-sided back pain Qualifiers: Chronicity: unspecified Sciatica presence: without sciatica Discharge Date/Time: 10/02/19 00:59 Instructions: DI for Low Back Pain Activity Restrictions/Additional Instructions: Follow up with your physician this week. If you do not have a primary care you can call [phone] for the health division human resources manager and they can help you get set up with a primary care provider. You may use lidocaine patches as needed to back. You may use this with her other medications. I would recommend increasing your gabapentin back up to your regular does and taking it 3 times daily rather than once daily. Discussed with her physician about other options besides gabapentin if you do not like the side effects. Take pain medication as prescribed, this medication can make you sleepy do not drive, perform hazardous activities or make any major decisions while taking this medication. Your urine culture is pending, this takes 48-72 hours to return if positive you should expect a phone call. Your CT today does show a left adrenal nodule, recommend nonemergent MR/CT workup, this is an unlikely cause of your pain today. Discussed with her primary care physician and they can set up this evaluation. Return to the emergency department for fevers greater 100.4 F, rapidly worsening pain, passing out, persistent vomiting, black or bloody stools, inability urinate or other new or concerning symptoms. Prescriptions: New oxycodone-acetaminophen [Percocet] 5-325 mg tablet 1 tab PO Q6H PRN (Reason: pain) Qty: 10 RF: 0 No Action ibuprofen 200 mg Tablet 1 dose PO PRN PRN (Reason: pain or headache) RF: 0 omeprazole 20 mg Capsule,Delayed Release(Dr/Ec) 20 mg PO DAILY RF: 0 losartan 100 mg Tablet 100 mg PO DAILY RF: 0 gabapentin 300 mg capsule 900 mg PO TID RF: 0 Stand Alone Forms: Work Release Note
[2019-10-01 21:53] LABS: Bacteria Urine Occasional (0-1); Culture Indicated Urine Cult Not Indicated; RBC Urine 0-1/HPF (0-5/HPF); Squamous Epithelial Cell Urine 1-5 /HPF (0-5/HPF); WBC Urine 1-5/HPF (0-5/HPF)
--- NOTE | 2019-10-01 22:03 | DI.CT.S_ITS ---
PROCEDURE: CT ABDOMEN PELVIS W CON INDICATIONS: Right back and abdominal pain, hx back pain and colitis/diverticulitis TECHNIQUE: After the administration of intravenous contrast, 5 mm thick sections acquired from the diaphragm to the symphysis. 5 mm coronal and sagittal reformats were acquired. For radiation dose reduction, the following was used: automated exposure control, adjustment of mA and/or kV according to patient size. COMPARISON: None. FINDINGS: Image quality: Excellent. ABDOMEN: Lung bases: Lung bases are clear. Heart size is normal. Solid organs: There is a small subcapsular hypodensity anteriorly in the left hepatic lobe measuring up to 0.4 cm. Finding is too small to characterize on the current study. The gallbladder appears within normal limits without calcified gallstones. Biliary system is non-dilated. Pancreas enhances normally. No peripancreatic fat stranding or fluid collections. No pancreatic duct dilatation. The spleen is normal in size. There is a left adrenal nodule measuring up to approximately 1.6 cm. There is mild dilatation of the left renal collecting system with a calcified stone visualized. The left ureter is nondistended. No right hydronephrosis. Peritoneum and bowel: Bowel loops demonstrate normal wall thickness and caliber. The appendix is normal in appearance. There is colonic diverticulosis without acute diverticulitis. No free fluid or air. Nodes and vessels: No retroperitoneal or mesenteric adenopathy by size criteria. Aorta and inferior vena cava are normal in size. Miscellaneous: No ventral hernias. PELVIS: Genitourinary: There is mild concentric bladder wall thickening with adjacent mild pericystic fat stranding suggestive of a cystitis. The prostate is mildly enlarged and heterogeneous in appearance. Miscellaneous: No inguinal hernias or adenopathy. Bones: No suspicious bony lesions. No vertebral body compression fractures. IMPRESSION: 1. Colonic diverticulosis without acute diverticulitis. 2. Mild concentric bladder wall thickening with adjacent pericystic fat stranding suggestive of a nonspecific cystitis. Recommend correlation with urinalysis. 3. Mild dilatation of the left renal collecting system without ureteral distention. Findings are suggestive of a mild UPJ obstruction. 4. Indeterminate left adrenal nodule. Further evaluation may be obtained with an adrenal protocol CT or MRI. 5. Small subcapsular hypodensity anteriorly in the left hepatic lobe. The finding is too small to characterize. Although this statistically likely represents a cyst, a small mass lesion cannot be excluded. Consider followup evaluation with a liver protocol CT or MRI if indicated. Dictated by: Chris Alfaro M.D. on 10/02/2019 at 7:48 Approved by: Chris Alfaro M.D. on 10/02/2019 at 7:58
[2019-10-01 22:08] LABS: Add Manual Diff / Slide Review NO; Basophils Absolute Auto 100 /uL (0-100); Basophils Percent Auto 0.5 % (0-2); Eosinophils Absolute Auto 100 /uL (0-450); Eosinophils Percent Auto 1.1 % (2-4); Hematocrit 42.7 % (41-53); Hemoglobin 14.6 g/dL (13.5-17.5); Lymphocytes Absolute Auto 2200 /uL (1100-4500); Lymphocytes Percent Auto 19.2 % (25-40); Mean Corpuscular HGB Conc 34.2 % (30-36); Mean Corpuscular Hemoglobin 32.3 PG (26-34); Mean Corpuscular Volume 94.6 fL (80-100); Monocytes Absolute Auto 900 /uL (0-900); Monocytes Percent Auto 7.5 % (3-14); Neutrophils Absolute Auto 8400 /uL (1500-7000); Neutrophils Percent Auto 71.7 % (50-75); Platelet Count 242 X10^3/uL (150-400); Red Blood Cell Count 4.52 X10^6/uL (4.5-5.9); Red Cell Distribution Width 13.1 % (11.6-14.8); White Blood Cell Count 11.7 X10^3/uL (4.5-11.0)
[2019-10-01 22:13] LABS: Alanine Aminotransferase 25 IU/L (<50); Albumin 4.3 g/dL (3.5-5.0); Albumin Globulin Ratio 1.6 (1.0-2.8); Alkaline Phosphatase 61 U/L (38-126); Aspartate Aminotransferase 43 IU/L (17-59); BUN Creatinine Ratio 16.7 (6-22); Bilirubin Total 0.7 mg/dL (0.2-1.3); Blood Urea Nitrogen 15 mg/dL (9-20); Calcium 8.7 mg/dL (8.4-10.2); Carbon Dioxide 26 mmol/L (22-32); Chloride 105 mmol/L (98-107); Estimated Glomerular Filt Rate > 60.0 mL/min (>60); Globulin 2.7 g/dL (1.7-4.1); Glucose 106 mg/dL (70-100); HEMOLYSIS 19 (0-50); Lipase 86 U/L (23-300); Potassium 4.2 mmol/L (3.4-5.1); Sodium 140 mmol/L (137-145)
[2019-10-01] MEDS: SODIUM CHLORIDE 0.9% 1,000 ML 1000 ML IV (22:17)
[2019-10-01] MEDS: ONDANSETRON 4 MG/2 ML INJ IV (22:18)
[2019-10-01] MEDS: KETOROLAC 60 MG/2 ML VIAL 30 MG IV (22:18)
[2019-10-01] MEDS: MORPHINE 4 MG/ML INJ IV (22:57)
[2019-10-01 23:10] VITALS: BP 190/108; PULSE 60; RESP 18; O2SAT 99
[2019-10-01] MEDS: diazePAM 5 MG TABLET 10 MG PO (23:31)
[2019-10-01] MEDS: HYDROMORPHONE 1 MG INJ IV (23:31)
--- NOTE | 2019-10-02 00:04 | PC.NURSE ---
he told me his pain got worse after medicating with dilaudid and valium.I notified .
[2019-10-02 00:13] VITALS: BP 186/127; PULSE 65; RESP 18; O2SAT 100
[2019-10-02] MEDS: OXYCODONE/APAP 5/325 PREPACK 1 BOTTLE MISC (00:40)
[2019-10-02] MEDS: HYDROMORPHONE 1 MG INJ IV (00:40)
[2019-10-02 00:59] VITALS: BP 177/119; PULSE 65; RESP 18; O2SAT 98
== END 2019-10-02 00:59 | disposition home or self-care (01) ==
PROVIDERS: Emergency Provider Emergency Medicine
DX: M54.9 Dorsalgia, unspecified (principal); I10 Essential (primary) hypertension; R42 Dizziness and giddiness; R11.0 Nausea
CPT/HCPCS: 74177; 80053; 81003; 81015; 83690; 85025; 96361; 96374; 96375; 96376; 99283; 99284; J1170; J1885; J2270; J2405; Q9967

== ENCOUNTER → 2020-01-24 10:39 | Outpatient (CLI) | payer OTHER, SELFPAY ==
[2020-01-24 11:16] LABS: Add Manual Diff / Slide Review NO; Basophils Absolute Auto 100 /uL (0-100); Basophils Percent Auto 0.7 % (0-2); Eosinophils Absolute Auto 300 /uL (0-450); Eosinophils Percent Auto 3.3 % (2-4); Hematocrit 46.1 % (41-53); Hemoglobin 15.5 g/dL (13.5-17.5); Lymphocytes Absolute Auto 2200 /uL (1100-4500); Lymphocytes Percent Auto 25.8 % (25-40); Mean Corpuscular HGB Conc 33.6 % (30-36); Mean Corpuscular Hemoglobin 32.2 PG (26-34); Mean Corpuscular Volume 95.8 fL (80-100); Monocytes Absolute Auto 900 /uL (0-900); Monocytes Percent Auto 10.1 % (3-14); Neutrophils Absolute Auto 5200 /uL (1500-7000); Neutrophils Percent Auto 60.1 % (50-75); Platelet Count 242 X10^3/uL (150-400); Red Blood Cell Count 4.81 X10^6/uL (4.5-5.9); Red Cell Distribution Width 13.7 % (11.6-14.8); White Blood Cell Count 8.6 X10^3/uL (4.5-11.0)
[2020-01-24 11:25] LABS: Alanine Aminotransferase 25 IU/L (<50); Albumin 4.6 g/dL (3.5-5.0); Albumin Globulin Ratio 1.6 (1.0-2.8); Alkaline Phosphatase 62 U/L (38-126); Amylase 114 U/L (30-110); Aspartate Aminotransferase 37 IU/L (17-59); BUN Creatinine Ratio 20.9 (6-22); Blood Urea Nitrogen 19 mg/dL (9-20); Calcium 9.4 mg/dL (8.4-10.2); Carbon Dioxide 30 mmol/L (22-32); Chloride 103 mmol/L (98-107); Creatine Kinase 264 U/L (55-170); Estimated Glomerular Filt Rate > 60.0 mL/min (>60); Globulin 2.9 g/dL (1.7-4.1); Glucose 104 mg/dL (70-100); HEMOLYSIS < 15 (0-50); Lipase 165 U/L (23-300); Sodium 139 mmol/L (137-145); Total Protein 7.5 g/dL (6.3-8.2)
== END ==
PROVIDERS: PCP Family Medicine; Referring Provider Nurse Practitioner Family; Visit Provider Nurse Practitioner Family
DX: Z00.00 Encounter for general adult medical examination without abnormal findings (principal); K57.90 Diverticulosis of intestine, part unspecified, without perforation or abscess without bleeding; R10.9 Unspecified abdominal pain; Z87.19 Personal history of other diseases of the digestive system; G89.29 Other chronic pain; M79.604 Pain in right leg; T79.A0XA Compartment syndrome, unspecified, initial encounter
CPT/HCPCS: 36415; 80053; 82150; 82550; 83690; 85025

== ENCOUNTER → 2020-01-31 12:19 | Outpatient (CLI) | payer OTHER, SELFPAY ==
--- NOTE | 2020-01-31 14:37 | DI.CT.S_ITS ---
PROCEDURE: CT ABDOMEN PELVIS W CON INDICATIONS: abdominal pain, history diverticulitis TECHNIQUE: After the administration of oral and intravenous contrast, 5 mm thick sections acquired from the diaphragms to the symphysis. 5 mm thick coronal and sagittal reformats were performed. For radiation dose reduction, the following was used: automated exposure control, adjustment of mA and/or kV according to patient size. COMPARISON: [facility], CT, CT ABDOMEN PELVIS W CON, 10/01/2019, 22:06. FINDINGS: Image quality: Excellent. ABDOMEN: Lung bases: Lung bases are clear. Heart size is normal. Solid organs: Liver is normal in size and enhancement. There is a stable subcentimeter hypodense nodule in the anterior liver capsule, as on series 2 image 22. Gallbladder has been removed. Biliary system is non-dilated. Pancreas enhances normally. Spleen is normal in size and enhancement. Incidental note is made of an accessory splenule along the hilum of the primary spleen. 1.5 cm left adrenal nodule again seen. No right adrenal nodules. Kidneys are normal in size and enhancement, without hydronephrosis. A prominent left renal pelvis is again seen. Peritoneum and bowel: Diverticulosis is seen, without findings of active diverticulitis. Stomach, small bowel, and colon loops are normal in caliber and wall thickness. No free fluid or air. Incidental note is made of a normal-appearing appendix. Nodes and vessels: No retroperitoneal or mesenteric adenopathy. Aorta and inferior vena cava are normal in caliber. Miscellaneous: No ventral hernias. PELVIS: Genitourinary: Mild circumferential bladder wall thickening is seen. Miscellaneous: No inguinal adenopathy. Bilateral fat containing inguinal hernias are seen, left larger than right. Bones: No suspicious bony lesions. No vertebral body compression fractures. IMPRESSION: Diverticulosis is seen, without findings of active diverticulitis. Mild circumferential bladder wall thickening is seen. Please correlate with bladder outlet obstruction. Differential diagnosis includes cystitis. Prominent left renal pelvis. Please consider mild UPJ obstruction. Stable subcentimeter nodule along the anterior aspect of the liver. Although nonspecific and too small to definitively characterize, this most likely relates to a cyst or hemangioma. Attention should be paid to this nodule on followup imaging. Nonspecific 1.5 cm left adrenal nodule again seen. Incidental note is made of: Cholecystectomy Normal appendix Bilateral fat containing inguinal hernias, left larger than right Dictated by: Rosales Meng M.D. on 01/31/2020 at 14:17 Approved by: Rosales Meng M.D. on 01/31/2020 at 14:22
== END ==
PROVIDERS: PCP Family Medicine; Referring Provider Nurse Practitioner Family; Visit Provider Nurse Practitioner Family
DX: R10.9 Unspecified abdominal pain (principal); K57.90 Diverticulosis of intestine, part unspecified, without perforation or abscess without bleeding; K40.20 Bilateral inguinal hernia, without obstruction or gangrene, not specified as recurrent; E27.9 Disorder of adrenal gland, unspecified; K76.9 Liver disease, unspecified; Z87.19 Personal history of other diseases of the digestive system; Z90.49 Acquired absence of other specified parts of digestive tract
CPT/HCPCS: 74177; Q9967

== ENCOUNTER → 2020-02-19 15:15 | Outpatient (CLI) | payer OTHER, SELFPAY ==
--- NOTE | 2020-02-19 15:19 | DI.RAD.S_ITS ---
PROCEDURE: XR LUMBAR SPINE 2-3V INDICATIONS: Progressive lower back pain with right-sided radiculopathy TECHNIQUE: 3 views of the lumbar spine were acquired. COMPARISON: None. FINDINGS: Bones: 5 [id number] vertebrae are present. There is slight dextroscoliotic bony alignment. No vertebral body compression fractures. No suspicious bony lesions. Soft tissues: Overlying bowel gas pattern is normal. No suspicious soft tissue calcifications. IMPRESSION: Slight dextroscoliosis centered at the L1 level of the LS-spine, no compression fracture found. Mild degenerative disc disease, mild facet osteoarthritis over the upper half of the LS-spine and mild to moderate such degeneration of the lower half. Dictated by: Dex Jason M.D. on 02/19/2020 at 15:57 Approved by: Dex Jason M.D. on 02/19/2020 at 15:58
== END ==
PROVIDERS: PCP Family Medicine; Referring Provider Family Medicine; Visit Provider Family Medicine
DX: M54.5 Low back pain (principal); M79.604 Pain in right leg; M51.16 Intervertebral disc disorders with radiculopathy, lumbar region; M47.26 Other spondylosis with radiculopathy, lumbar region; M41.86 Other forms of scoliosis, lumbar region
CPT/HCPCS: 72100

== ENCOUNTER → 2020-03-27 09:31 | Outpatient (CLI) | payer OTHER, SELFPAY ==
[2020-03-27 10:39] LABS: Creatinine Urine Random 192.2 mg/dL
[2020-03-27 10:41] LABS: Cholesterol 203 mg/dL (140-199); HDL Cholesterol 43 mg/dL (40-60); LDL Cholesterol Calculated 126 mg/dL (<100); Triglycerides 170 mg/dL (35-150)
[2020-03-27 10:45] LABS: Microalbumi Creatinin Ratio Ur 8.3 ug/mg CR (<30); Microalbumin Urine Random 1.6 mg/dL (0-1.6)
[2020-03-27 11:10] LABS: Prostate Specific Antigen Scrn 0.348 ng/mL (0.1-4.0)
== END ==
PROVIDERS: PCP Family Medicine; Referring Provider Student in an Organized Health Care Education/Training Program; Visit Provider Student in an Organized Health Care Education/Training Program
DX: Z13.220 Encounter for screening for lipoid disorders (principal); Z12.5 Encounter for screening for malignant neoplasm of prostate; E66.9 Obesity, unspecified; G45.9 Transient cerebral ischemic attack, unspecified; I10 Essential (primary) hypertension
CPT/HCPCS: 36415; 80061; 82043; 82570; 83036; G0103

== ENCOUNTER 2020-06-08 09:21 | Emergency (ER) | payer OTHER, SELFPAY ==
[2020-06-08] VITALS (8 sets, daily range): BP systolic 129–169; BP diastolic 75–102; PULSE 54–64; RESP 12–18; TEMP 36.9; O2SAT 96–98
--- NOTE | 2020-06-08 10:43 | DI.CT.S_ITS ---
PROCEDURE: CT LUMBAR SPINE WO CON INDICATIONS: severe low back pain TECHNIQUE: Noncontrast 3 mm thick sections acquired from the T12 level to the sacrum. Sagittal and coronal reformats were constructed. For radiation dose reduction, the following was used: automated exposure control. COMPARISON: None. FINDINGS: Image quality: Excellent. Bones: Six non rib-bearing vertebra. Normal vertebral body height and bony alignment. Normal disc spacing. Anterior bridging osteophytes between L1, L2, and L3. Mild facet arthropathy at L4-5, L5-6, and L6-S1. No vertebral body fractures or abnormal morphology. Mild circumferential disc bulge at L4-5 and mild ligamentum flavum hypertrophy cause mild central canal stenosis. Mild diffuse disc bulge and ligamentum flavum hypertrophy cause moderate central canal stenosis at L5-6. Soft tissues: No retroperitoneal masses or hematomas. Visualized aorta is normal in caliber. IMPRESSION: 1. Mild moderate central canal stenosis L4-5 and L5-6 secondary to degenerative disc and facet joint changes. 2. No fractures or significant malalignment. 3. 6 lumbar vertebral bodies. Dictated by: Michaela Castellano M.D. on 06/08/2020 at 10:42 Approved by: Michaela Castellano M.D. on 06/08/2020 at 10:48
--- NOTE | 2020-06-08 10:45 | DI.CT.S_ITS ---
PROCEDURE: CT ABDOMEN PELVIS WO CON INDICATIONS: severe low back and CVA pain r/o stone TECHNIQUE: Noncontrast 5 mm thick sections acquired from the diaphragms to the symphysis. 5 mm coronal and sagittal reformats were then performed. For radiation dose reduction, the following was used: automated exposure control, adjustment of mA and/or kV according to patient size. COMPARISON: [facility], CT, CT ABDOMEN PELVIS W CON, 01/31/2020, 14:03. FINDINGS: Image quality: Excellent. ABDOMEN: Lung bases: Lung bases are clear. Heart size is normal. Solid organs: Liver is normal in size. Mildly heterogeneous hepatic attenuation. Subcentimeter, subcapsular anterior hypodensity in the liver is stable. Gallbladder is surgically absent . Pancreas is normal in contours. Spleen is normal in size. There is a splenule caudal to the hilum. Mild diffuse lobulated low-density thickening of the left adrenal gland and to a lesser extent the right. No discrete adrenal nodules. Kidneys are normal in size, without hydronephrosis or nephrolithiasis. No perinephric inflammation. Peritoneum and bowel: Unenhanced bowel loops demonstrate normal wall thickness and caliber. Duodenal diverticulum arising from the 3rd portion. Diverticulosis of the distal descending and proximal sigmoid. No free fluid or air. Nodes and vessels: No retroperitoneal or mesenteric adenopathy by size criteria. Aorta and inferior vena cava are normal in caliber. Miscellaneous: No ventral hernias. PELVIS: Genitourinary: Bladder wall thickness is normal. There is a chronic rounded/punctate calcification anterolaterally along the urinary bladder wall to the left of midline. The prostate gland size is at the upper limits of normal and contains coarse calcification. Miscellaneous: No inguinal hernias or adenopathy. Bones: No suspicious bony lesions. No vertebral body compression fractures. IMPRESSION: 1. No evidence of new urinary calcification or obstructive uropathy. Left extra renal pelvis is less prominent compared to the prior study. 2. Diverticulosis. 3. Chronic urinary bladder wall calcification. Dictated by: Michaela Castellano M.D. on 06/08/2020 at 10:33 Approved by: Michaela Castellano M.D. on 06/08/2020 at 10:41
--- NOTE | 2020-06-08 10:47 | ED.BACK ---
HPI - Back Pain/Injury General Chief Complaint: Back Pain/Injury Stated Complaint: Back pain Time Seen by Provider: 06/08/20 10:34 Source: patient and family History of Present Illness HPI Narrative: CC: severe left lower back pain HPI: The patient is a 55-year-old male who presents to the emergency department with severe low back pain that is 10/10 in intensity. He states that the pain is a dull achy crampy discomfort which radiates to his left hip and pelvis. He denies any fall or injury. He states that the pain started approximately 3-4 days ago and was mild and has progressively become worse. It was worse last night and this morning became intolerable. He has not had this pain before. He denies having kidney stones before or any fall or injury to his back. He denies any lifting bending over straining or stretching. He has had no shooting pains or numbness or tingling weakness or paralysis in his legs. He has not noted any dysuria hematuria urinary frequency or blood in his urine. He has had no fever chills or sweats. He has had some mild chest discomfort but notes shortness of breath arm cough palpitations or dizziness. He denies vomiting or change in bowel habits but has had nausea. He denies being a diabetic but is prediabetic. He has no hypertension and no heart disease. He states that his pain is 9.5-10 over 10. The pain is sometimes worse with movement and twisting. Related Data Home Medications Medication Instructions Recorded Confirmed omeprazole 20 mg PO DAILY 06/13/19 05/13/20 aspirin 81 mg tablet,delayed 81 mg PO DAILY 03/29/20 05/13/20 release tamsulosin 0.4 mg capsule 0.4 mg PO DAILY 05/13/20 05/13/20 Previous Rx's Medication Instructions Recorded pregabalin 50 mg capsule 50 mg PO TID #90 cap 02/19/20 losartan 100 mg tablet 100 mg PO DAILY #90 tab 03/04/20 promethazine 25 mg tablet 25 mg PO TID PRN #21 tab 03/27/20 pravastatin 20 mg tablet 20 mg PO BEDTIME #30 tab 03/29/20 diclofenac sodium 75 mg 75 mg PO BID #60 tab 05/13/20 tablet,delayed release trazodone 50 mg tablet 50 mg PO BEDTIME PRN #60 tab 05/13/20 cyclobenzaprine 10 mg PO TID PRN #15 tab 06/08/20 ketorolac 10 mg PO Q6H PRN 5 Days tab 06/08/20 oxycodone-acetaminophen [Percocet] 1 tab PO Q6H PRN #15 tab 06/08/20 Allergies Allergy/AdvReac Type Severity Reaction Status Date / Time ketamine AdvReac Severe Agitated Verified 06/08/20 09:39 Review of Systems Review of Systems Narrative: His review of systems were all negative except for those mentioned in the history of present illness. Patient History Medical History Adrenal nodule (Acute) Chronic pain (Acute) Chronic pain of right lower extremity (Acute) Compartment syndrome (Acute) Diverticulosis (Acute) History of diverticulitis (Acute) Hypertension (Acute) Leg pain, right (Acute) Liver nodule (Acute) Low back pain (Acute) Memory loss (Acute) Ureteropelvic junction (UPJ) obstruction (Acute) Surgical History Status post decompression of compartment syndrome (Acute) Social History Smoking Status: Current every day smoker Smoking Status: Current every day smoker alcohol intake frequency: 0-2 drinks per day Substance Use Type: does not use Exam Narrative Exam Narrative: PHYSICAL EXAM: CONSTITUTIONAL: Awake, Alert, Cooperative in moderate to severe distress. The patient is writhing and moving in pain and discomfort. HEAD: AT/NC EENT: PERRL, FROM of eyes, NOSE:No epistaxis or nasal drainage MOUTH:Oral mucosa is moist and pink, posterior pharynx is without erythema or exudate. NECK: Supple, no obvious JVD, Trachea is midline without stridor, no palpable LN. SPINE: The patient is tender to palpation along the lumbar spine and left paraspinous muscles in costovertebral angle. The patient has no significant tenderness or deformity to palpation over the cervical or thoracic spine or posterior ribs. THORAX: No deformity, retractions or chest wall tenderness. LUNGS: Clear, symmetrical breath sounds without respiratory distress. HEART: Normal heart tones, regular rhythm and rate without murmur. ABDOMEN: Soft, non-tender, no guarding, rebound, rigidity or palpable mass. EXTREMITIES: No edema, deformity, tenderness or cyanosis. SKIN: No rash, bruising, petechiae or purpura. NEURO: Awake, alert, oriented, conversive, cranial nerves II-XII are symmetrical , moves all 4 extremities and is ambulatory. MENTAL HEALTH: Does not appear anxious or depressed. Initial Vital Signs Initial Vital Signs: Vital Signs Temperature 98.5 F 06/08/20 09:36 Pulse Rate 64 06/08/20 09:36 Respiratory Rate 18 06/08/20 09:36 Blood Pressure 157/102 H 06/08/20 09:36 Pulse Oximetry 97 06/08/20 09:36 Course Course Course Narrative: 1040: The patient is writhing in pain as though he has a kidney stone. The pain is in the left lower back radiating down towards his hip and his groin. Orders Ordered: Discontinued Medications Cyclobenzaprine HCl (Flexeril) 10 mg PO NOW ONE Stop: 06/08/20 10:44 Last Admin: 06/08/20 10:53 Dose: 10 mg Documented by: YOUSIF Hydromorphone HCl (Dilaudid) 1 mg IV NOW ONE Stop: 06/08/20 10:44 Last Admin: 06/08/20 10:53 Dose: 1 mg Documented by: YOUSIF Hydromorphone HCl (Dilaudid) 1 mg IV NOW ONE Stop: 06/08/20 11:57 Last Admin: 06/08/20 12:08 Dose: 1 mg Documented by: YOUSIF Ondansetron HCl (Zofran) 4 mg IV NOW ONE Stop: 06/08/20 10:44 Last Admin: 06/08/20 10:53 Dose: 4 mg Documented by: YOUSIF Vital Signs Vital signs: Vital Signs - 8 hr 06/08/20 13:00 06/08/20 13:01 06/08/20 13:30 Pulse Rate 57 L 57 L 54 L Respiratory Rate 12 Blood Pressure 129/75 129/75 Pulse Oximetry 96 96 97 MDM - Back Pain/Injury Lab Data Result diagrams: 06/08/20 10:45 06/08/20 10:45 Labs: Lab Results 06/08/20 06/08/20 Range/Units 10:45 10:45 WBC 9.4 (4.5-11.0) X10^3/uL RBC 4.53 (4.5-5.9) X10^6/uL Hgb 14.3 (13.5-17.5) g/dL Hct 43.4 (41-53) % MCV 95.8 (80-100) fL MCH 31.6 (26-34) PG MCHC 33.0 (30-36) % RDW 13.4 (11.6-14.8) % Plt Count 200 (150-400) X10^3/uL Neut % (Auto) 70.1 (50-75) % Lymph % (Auto) 17.5 L (25-40) % Mclennan % (Auto) 8.3 (3-14) % Eos % (Auto) 3.5 (2-4) % Baso % (Auto) 0.6 (0-2) % Neut # (Auto) 6600 (3417-7866) /uL Lymph # (Auto) 1600 (3973-0880) /uL Mclennan # (Auto) 800 (0-900) /uL Eos # (Auto) 300 (0-450) /uL Baso # (Auto) 100 (0-100) /uL Sodium 139 (137-145) mmol/L Potassium 4.3 (3.4-5.1) mmol/L Chloride 108 H (98-107) mmol/L Carbon Dioxide 27 (22-32) mmol/L BUN 14 (9-20) mg/dL Creatinine 0.93 (0.66-1.25) mg/dL Estimated GFR > 60.0 (>60) mL/min BUN/Creatinine Ratio 15.1 (6-22) Glucose 102 H (70-100) mg/dL Calcium 9.1 (8.4-10.2) mg/dL Total Bilirubin 0.6 (0.2-1.3) mg/dL AST 43 (17-59) IU/L ALT 25 (<50) IU/L Alkaline Phosphatase 66 (38-126) U/L Total Protein 7.0 (6.3-8.2) g/dL Albumin 4.4 (3.5-5.0) g/dL Globulin 2.6 (1.7-4.1) g/dL Albumin/Globulin Ratio 1.7 (1.0-2.8) Discharge Plan Departure Patient Disposition: Home Clinical Impression: Spinal stenosis at L4-L5 level Low back pain Qualifiers: Chronicity: acute Back pain laterality: left Sciatica presence: without sciatica Qualified Code(s): M54.5 - Low back pain Discharge Date/Time: 06/08/20 13:32 Instructions: DI for Low Back Pain, DI for Back Spasm Activity Restrictions/Additional Instructions: 1. Follow-up with your primary care physician and be re-evaluated in 48- [address] scan does not show that you have any kidney stone. 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 3. For the pain and discomfort you need to take toradol, cyclobenzaprine and the Percocet as prescribed. You need to put warm compresses on your back. The pain medicines will not take your pain completely away but which should relieve your pain and discomfort and take the edge off . 4. Do not take both the ketorolac/toradol and the diclofenac. Take 1 or the other. Do not take both. Prescriptions: New ketorolac 10 mg tablet 10 mg PO Q6H PRN (Reason: pain) 5 Days RF: 0 cyclobenzaprine 10 mg tablet 10 mg PO TID PRN (Reason: muscle spasm) Qty: 15 RF: 0 oxycodone-acetaminophen [Percocet] 7.5-325 mg tablet 1 tab PO Q6H PRN (Reason: pain) Qty: 15 RF: 0 No Action losartan 100 mg tablet 100 mg PO DAILY Qty: 90 RF: 3 pregabalin [Lyrica] 50 mg capsule 50 mg PO TID Qty: 90 RF: 2 Hold Instructions: trial of cessation promethazine 25 mg tablet 25 mg PO TID PRN (Reason: nausea and vomiting) Qty: 21 RF: 0 aspirin 81 mg tablet,delayed release (DR/EC) 81 mg PO DAILY RF: 0 pravastatin 20 mg tablet 20 mg PO BEDTIME Qty: 30 RF: 5 omeprazole 20 mg Capsule,Delayed Release(Dr/Ec) 20 mg PO DAILY RF: 0 tamsulosin [Flomax] 0.4 mg capsule 0.4 mg PO DAILY RF: 0 trazodone 50 mg tablet 50 mg PO BEDTIME PRN (Reason: insomnia) Qty: 60 RF: 2 diclofenac sodium 75 mg tablet,delayed release (DR/EC) 75 mg PO BID Qty: 60 RF: 2 Referrals: Seferino Meier DO [Primary Care Provider] - Stand Alone Forms: Work Release Note
[2020-06-08] MEDS: HYDROMORPHONE 1 MG INJ IV ×2 (10:53→12:08)
[2020-06-08] MEDS: CYCLOBENZAPRINE 10 MG TABLET PO (10:53)
[2020-06-08] MEDS: ONDANSETRON 4 MG/2 ML INJ IV (10:53)
[2020-06-08 10:58] LABS: Add Manual Diff / Slide Review NO; Basophils Absolute Auto 100 /uL (0-100); Basophils Percent Auto 0.6 % (0-2); Eosinophils Absolute Auto 300 /uL (0-450); Eosinophils Percent Auto 3.5 % (2-4); Hematocrit 43.4 % (41-53); Hemoglobin 14.3 g/dL (13.5-17.5); Lymphocytes Absolute Auto 1600 /uL (1100-4500); Lymphocytes Percent Auto 17.5 % (25-40); Mean Corpuscular Hemoglobin 31.6 PG (26-34); Mean Corpuscular Volume 95.8 fL (80-100); Monocytes Absolute Auto 800 /uL (0-900); Monocytes Percent Auto 8.3 % (3-14); Neutrophils Absolute Auto 6600 /uL (1500-7000); Neutrophils Percent Auto 70.1 % (50-75); Platelet Count 200 X10^3/uL (150-400); Red Blood Cell Count 4.53 X10^6/uL (4.5-5.9); Red Cell Distribution Width 13.4 % (11.6-14.8); White Blood Cell Count 9.4 X10^3/uL (4.5-11.0)
[2020-06-08 11:04] LABS: Alanine Aminotransferase 25 IU/L (<50); Albumin 4.4 g/dL (3.5-5.0); Albumin Globulin Ratio 1.7 (1.0-2.8); Alkaline Phosphatase 66 U/L (38-126); Aspartate Aminotransferase 43 IU/L (17-59); BUN Creatinine Ratio 15.1 (6-22); Bilirubin Total 0.6 mg/dL (0.2-1.3); Blood Urea Nitrogen 14 mg/dL (9-20); Calcium 9.1 mg/dL (8.4-10.2); Carbon Dioxide 27 mmol/L (22-32); Chloride 108 mmol/L (98-107); Estimated Glomerular Filt Rate > 60.0 mL/min (>60); Globulin 2.6 g/dL (1.7-4.1); Glucose 102 mg/dL (70-100); HEMOLYSIS < 15 (0-50); Potassium 4.3 mmol/L (3.4-5.1); Sodium 139 mmol/L (137-145)
== END 2020-06-08 13:32 | disposition home or self-care (01) ==
PROVIDERS: Emergency Provider Emergency Medicine; PCP Family Medicine
DX: M48.061 Spinal stenosis, lumbar region without neurogenic claudication (principal); M54.5 Low back pain
CPT/HCPCS: 36415; 72131; 74176; 80053; 85025; 96374; 96375; 96376; 99284; J1170; J2405

== ENCOUNTER → 2020-07-25 07:58 | Outpatient (CLI) | payer SELFPAY ==
--- NOTE | 2020-07-25 08:00 | DI.MRI.S_ITS ---
PROCEDURE: MR LOWER LEG RT WO CON INDICATIONS: History of right lower extremity compartment syndrome TECHNIQUE: Noncontrast coronal and sagittal T1 spin echo and STIR; axial T1 spin echo and T2 fast spin echo with fat saturation through the right tibia/fibula . COMPARISON: None. FINDINGS: Image quality: Excellent. Bones: The visualized bone marrow demonstrates normal signal on all sequences. There is mild periosteal edema along the anteromedial aspect of the tibia. The cortex appears intact. No fractures lines or intra-osseous lesions. Soft tissues: The scanned muscles demonstrate normal overall bulk and internal signal. Subcutaneous tissues appear normal as well. No soft tissue masses are present. IMPRESSION: Minimal anteromedial periosteal tibial edema raising the possibility of low-grade anteromedial tibial stress syndrome (leija splints) Dictated by: Antonio Hicks M.D. on 07/27/2020 at 10:39 Approved by: Antonio Hicks M.D. on 07/27/2020 at 10:49
--- NOTE | 2020-07-25 08:00 | DI.MRI.S_ITS ---
PROCEDURE: MR LUMBAR SPINE WO CON INDICATIONS: Lumbar radiculopathy TECHNIQUE: Noncontrast sagittal T1 spin echo and T2 fast echo, sagittal STIR, axial T1 and T2 fast spin echo through the lumbar spine. In cases with scoliosis, additional coronal T2 fast spin echo may be performed. COMPARISON: [facility], CT, CT ABDOMEN PELVIS WO CON, 06/08/2020, 10:42. [facility], CT, CT LUMBAR SPINE WO CON, 06/08/2020, 10:42. FINDINGS: Image quality: Excellent. Alignment and Curvature: There is normal bony alignment. Bone Marrow: Marrow is of normal overall signal. No acute vertebral body compression fractures. Spinal Cord: Conus medullaris terminates at the L1 level. Visualized cord demonstrates normal signal and size. Paraspinous Soft Tissues: No paravertebral masses. This patient has transitional lumbar anatomy. For the purposes of this examination, the level with the last well-developed pair of ribs is considered to be T12. By this numbering scheme, there are 6 lumbar type vertebral bodies. This numbering scheme is chosen to remain consistent with the prior lumbar CT report dated 06/08/2020 T12-L1: Normal appearance. L1-L2: The disc height is well-preserved. Loss of disc signal is seen at this level. Bridging endplate osteophytes are seen. Mild generalized disc bulge is seen. No significant neural foraminal or central canal narrowing can be seen. L2-L3: Mild loss of disc height is seen. Loss of disc signal is seen. Mild to moderate disc bulge is seen. There is moderate right-sided and moderate to severe left-sided neural foraminal narrowing seen. Mild to moderate central canal narrowing is seen. L3-L4: The disc height and disc signal are relatively well preserved. Mild disc bulge is seen, which is eccentric to the right. There is mild to moderate right-sided and no significant left-sided neural foraminal narrowing seen. Minimal central canal narrowing is seen. L4-L5: The disc height and disk signal are well-preserved. Moderate generalized disc bulge is seen. Mild facet joint hypertrophy is seen. There is moderate to severe bilateral neural foraminal narrowing seen, left worse than right. There is a degree of compression seen upon the exiting nerve roots. Moderate central canal narrowing is seen. L5-L6: The disc height and disc signal are relatively well preserved. Moderate disc bulge is seen, with a central disc protrusion. Moderate facet joint hypertrophy is seen. There is moderate to severe bilateral neural foraminal narrowing seen. There is a degree of compression seen upon the exiting nerve roots. Moderate central canal narrowing is seen. L6-S1: No significant abnormality is seen. IMPRESSION: Multiple levels lumbar spine degenerative change are seen, which are overall most prominent at the L5-L6 level. Transitional lumbar anatomy, with 6 lumbar type vertebral bodies. Dictated by: Rosales Meng M.D. on 07/25/2020 at 10:24 Approved by: Rosales Meng M.D. on 07/25/2020 at 10:29
== END ==
PROVIDERS: PCP Family Medicine; Referring Provider Physical Medicine & Rehabilitation; Visit Provider Physical Medicine & Rehabilitation
DX: M47.26 Other spondylosis with radiculopathy, lumbar region (principal); M79.604 Pain in right leg; G89.29 Other chronic pain; T79.A0XA Compartment syndrome, unspecified, initial encounter
CPT/HCPCS: 72148; 73718

== ENCOUNTER → 2020-09-25 12:27 | Outpatient (CLI) | payer OTHER, SELFPAY ==
[2020-09-25 13:41] LABS: COVID19 -Nasal RAPID Negative (Negative)
== END ==
PROVIDERS: PCP Family Medicine; Visit Provider Family Medicine
DX: R05 Cough (principal); R06.02 Shortness of breath
CPT/HCPCS: 87635

== ENCOUNTER → 2020-09-28 15:12 | Outpatient (CLI) | payer OTHER, SELFPAY | PROVIDERS: PCP Family Medicine; Referring Provider Internal Medicine; Visit Provider Internal Medicine | DX: Z23 Encounter for immunization (principal) | CPT/HCPCS: 90471; 90686 ==

== ENCOUNTER → 2020-11-11 16:07 | Outpatient (CLI) | payer OTHER, SELFPAY ==
[2020-11-11] MEDS: COVID-19 VACC(MODERNA-1)/PF 100 MCG/0.5 ML VIAL IM (16:11)
== END ==
PROVIDERS: PCP Family Medicine; Visit Provider Internal Medicine
DX: Z23 Encounter for immunization (principal)
CPT/HCPCS: 0011A; 91301

== ENCOUNTER → 2020-12-09 11:49 | Outpatient (CLI) | payer OTHER, SELFPAY ==
--- NOTE | 2020-12-09 11:52 | DI.RAD.S_ITS ---
PROCEDURE: XR FOOT LT MIN 3V INDICATIONS: l foot pain TECHNIQUE: 3 views of the foot were acquired. COMPARISON: None. FINDINGS: Bones: No fractures or dislocations. Mild osteoarthritic changes are noted in midfoot and forefoot joints. No suspicious bony lesions. Soft tissues: No tibiotalar joint effusion. Achilles tendon appears normal. IMPRESSION: No acute left foot fracture or dislocation. Mild midfoot and forefoot joint osteoarthritis. Dictated by: Rodriguez Schilling M.D. on 12/09/2020 at 11:40 Approved by: Rodriguez Schilling M.D. on 12/09/2020 at 11:41
--- NOTE | 2020-12-09 11:52 | DI.RAD.S_ITS ---
PROCEDURE: XR KNEE LT 3V INDICATIONS: l knee pain TECHNIQUE: 3 views of the knee were acquired. COMPARISON: None. FINDINGS: Bones: No fractures or dislocations. No suspicious bony lesions. Soft tissues: No joint effusion. No suspicious soft tissue calcifications. IMPRESSION: No acute left knee fracture or dislocation. No significant joint effusion. Dictated by: Rodriguez Schilling M.D. on 12/09/2020 at 11:31 Approved by: Rodriguez Schilling M.D. on 12/09/2020 at 11:40
== END ==
PROVIDERS: PCP Family Medicine; Referring Provider Physician Assistant; Visit Provider Physician Assistant
DX: M25.562 Pain in left knee (principal); M79.672 Pain in left foot; M19.072 Primary osteoarthritis, left ankle and foot
CPT/HCPCS: 73562; 73630

== ENCOUNTER → 2020-12-10 10:11 | Outpatient (CLI) | payer OTHER, SELFPAY ==
[2020-12-10] MEDS: COVID-19 VACC #2, MRNA(MOD) 100 MCG/0.5 ML VIAL IM (10:14)
== END ==
PROVIDERS: PCP Family Medicine; Visit Provider Internal Medicine
DX: Z23 Encounter for immunization (principal)
CPT/HCPCS: 0012A; 91301

== ENCOUNTER 2021-01-06 15:15 | Outpatient (RCR) | payer OTHER, SELFPAY ==
--- NOTE | 2020-12-30 16:00 | PT.OPPOC ---
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) Visit Care Team Role Provider Type Seferino Meier DO Primary Care Provider Physician Specialty: Family Practice Address: [address] [place] [address], [id number] Email: [email or web address] Fierro DO Attending Provider Physician Referring Provider Specialty: Physiatry Pain Management Address: [facility] [place], [address] Email: [email or web address] Plan Of Care PT-OP-T Assessment and Plan Start: 12/31/20 09:39 Freq: Status: Active Protocol: Document 12/30/20 15:15 DCW (Rec: 12/31/20 10:22 DCW [id number]) Physical Therapy Assessment Rehab Potential Rehabilitation Potential Good Evaluation Complexity Number of Personal Factors/Comorbidities 3 or More Number of Body Systems Impaired 3 Clinical Presentation at Evaluation Evolving Impairments Impairments Activity Tolerance,Functional Activities,Functional Mobility ,Gait,Pain,Posture,ROM,Soft Tissue Mobility,Strength,Tone Goals Four Impairment Mod-Severe tone in paraspinal and hip musculature limits lumbar ROM Director Financial Analysis Goal (LTG) Pt to present with mild tone in paraspinals, psoas, piriformis, and QL bilaterally LTG Duration 02/28/21 Three Impairment LE weakness R>L Director Financial Analysis Goal (LTG) Pt to increase R LE strength to at least 4/5 in all planes LTG Duration 02/28/21 Two Impairment Pt unable to drive further than [address] disks due to pain Director Financial Analysis Goal (LTG) Pt to tolerate sitting for 60 minutes without increased pain to increase distance he is able to travel from home. LTG Duration 02/28/21 One Impairment Pt does not have an appropriate home exercise program Short Term Goal (STG) Pt to be independent and compliant with an appropriate HEP STG Duration 01/28/21 Assessment Summary Assessment Pt presents to skilled therapy with significant low back dysfunction. It is very difficult at this time to properly DDx pt because all special tests are positive, which does not help to rule in or out anything. Pt has significant hypertonia throughout paraspinals and hip musculature, which limits his mobility and is increasingly affecting his participation in his usual activities. Pt's history of right leg issues, including a crush injury and compartment syndrome, have changed his gait pattern, and likely affect his hip and low back enough to worsen his pain and symptoms. Pt should benefit from STM to decrease tone, gait training, pain- control modalities, and LE strengthening. Physical Therapy Plan Frequency and Duration Frequency of Treatment 2x/Week Duration of Treatment Two months Plan of Care Start Date 12/30/20 Plan of Care End Date 02/27/21 Therapeutic Interventions Therapeutic Interventions Gait Training,Home Exercise Program,Joint Mobilizations, Manual Therapy,Neuromuscular Re-education,Patient/Caregiver Education,Self-Care/Home Management,Soft Tissue Mobilization,Therapeutic Activities,Therapeutic Exercises Modalities Cold Pack/Ice Massage,Electric Stimulation,Hot Packs, Ultrasound Next Visit Focus/Plan Next Note Type Treatment Note Next Visit Plan LE strengthening, STM, e-stim/ heat Plan of Care Dates Plan of Care Start Date 12/30/20 Plan of Care End Date 02/27/21 Electronically Signed by: Nicholas Benavidez, PT 12/31/20 1023 Please Sign and Return: I have reviewed this Plan of Care and certify that the skilled therapy services above are required to meet the patient?s needs. Physician Signature Date Printed Name and Credentials Clinical Instructor Signature Printed Name and Credentials
--- NOTE | 2020-12-30 16:00 | PT.OIE ---
Current Diagnoses Spondylosis without myelopathy or radiculopathy, lumbar region (12/30/20) Past Medical History (Last Reviewed 12/16/20 @ 15:50 by Som Fierro DO) Acute bronchitis Adrenal nodule Chronic pain Chronic pain of right lower extremity Compartment syndrome Diverticulosis Facet arthropathy, lumbar History of diverticulitis Hypertension Hypertension Leg pain, right Liver nodule Low back pain Lumbar radiculopathy Lumbar stenosis Memory loss Ureteropelvic junction (UPJ) obstruction Past Surgical History (Last Reviewed 12/16/20 @ 15:50 by Som Fierro DO) Status post decompression of compartment syndrome Visit Care Team Role Provider Type Seferino Meier DO Primary Care Provider Physician Specialty: Family Practice Address: [address] [place] [address], [id number] Email: [email or web address] Som Fierro DO Attending Provider Physician Referring Provider Specialty: Physiatry Pain Management Address: [address] [place] [address], [id number] Email: [email or web address] Physical Therapy Initial Evaluation PT-OP-A Visit Information Start: 12/31/20 09:39 Freq: Status: Active Protocol: Document 12/30/20 15:15 DCW (Rec: 12/31/20 10:22 [facility] [id number]) Out-Patient Physical Therapy Visit Information Visit Information Visit Type Initial Evaluation Visit Start Time 15:15 Visit Stop Time 15:55 Total Visit Minutes 40 Visit Number 1 Number of LEAD SECURITY OFFICER Visits 0 Evaluation Information Evaluation Date 12/30/20 PT-OP-B Current Condition Start: 12/31/20 09:39 Freq: Status: Active Protocol: Document 12/30/20 15:15 DCW (Rec: 12/31/20 10:22 [facility] [id number]) Current Condition History of Current Condition Onset Date Three month history Current Complaints worsening low back pain History of Current Condition Pt is a 55 year old male presenting to skilled physical therapy with a three month history of worsening low back pain. Pt notes that he has been told he either has nerve damage/impingement or stenosis, but no one has been able to give him an answer yet. 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 Pt reports his pain is worst when getting up in the morning , lifting weight, walking more than a quarter mile, or sitting longer than 35-40 minutes. Pt admits it has also been affecting his sleep, which hasn't helped at all. Complicating his history is that 2.5 years ago, pt was in an accident where his right leg got crushed, which actually resulted in compartment syndrome. Pt admits that it has completely changed the way he walks. Reports he was told by Dr Fierro he needs to try six weeks of PT before getting any injections. Prior Treatments and Tests Lumbar MRI: IMPRESSION: Multiple levels lumbar spine degenerative change are seen, which are overall most prominent at the L5-L6 level. Transitional lumbar anatomy, with 6 lumbar type vertebral bodies. per Rosales Meng M.D. on 07/25/2020 Treatment Goals Patient/Caregiver Goals Pt's stated goals are to decrease his pain and improve his sleep PT-OP-C Subjective Start: 12/31/20 09:39 Freq: Status: Active Protocol: Document 12/30/20 15:15 DCW (Rec: 12/31/20 10:22 DCW [id number]) OP-PT Subjective Patient Comments Patient Comments There really wasn't any specific injury, it's just been building up over the last three months. Patient Reported Progress Worse Patient Questionnaires Oswestry Low Back Index Oswestry Score 27/50 = 54% Oswestry Impairment 40 to 59% Impaired (Score 40- 59) PT-OP-F Manual Assessment Start: 12/31/20 09:39 Freq: Status: Active Protocol: Document 12/30/20 15:15 DCW (Rec: 12/31/20 10:22 DCW [id number]) Manual Assessments Soft Tissue Assessment Soft Tissue Mobility Assessment Severe tone and tenderness to palpation 3/4: Wincing and withdraw along bilateral piriformis, bilateral paraspinals, bilateral psoas, bilateral QL Joint Mobility Assessment Joint Mobility Assessment Lumbar hypomobility L1-L6 (per MRI, lumbarization of S1) PT-OP-K Range of Motion Start: 12/31/20 09:39 Freq: Status: Active Protocol: Document 12/30/20 15:15 DCW (Rec: 12/31/20 10:22 [facility] [id number]) Lumbar Spine Range of Motion Lumbar Spine Active Degrees Testing Position Standing Flexion 35 Extension 15 ROM Limitations Soft Tissue Tightness,Muscle Tone PT-OP-L Special Tests Start: 12/31/20 09:39 Freq: Status: Active Protocol: Document 12/30/20 15:15 DCW (Rec: 12/31/20 10:22 [facility] [id number]) Special Tests Lumbar Spine Special Tests EHSAN Test Results Positive Bilaterally Lateral SI Compression Test Results Positive Bilaterally Vertical Spine Loading Test Results Positive Bilaterally Macario Test Results Positive Bilaterally Straight Leg Raise Test Results Positive Bilaterally Slump Test Results Positive Right Manual Traction Test Results Worsens pain Compression Test Results Positive Right A-P Shearing Test Results Positive Bilaterally PT-OP-M Strength Start: 12/31/20 09:39 Freq: Status: Active Protocol: Document 12/30/20 15:15 DCW (Rec: 12/31/20 10:22 [facility] [id number]) Hip Strength Hip Manual Muscle Testing Right Flexion (L2) 4- Good- Extension (S1) 4- Good- Abduction 4- Good- Adduction 4- Good- External Rotation 4 Good Internal Rotation 4- Good- Left Flexion (L2) 4+ Good+ Extension (S1) 4 Good Abduction 4 Good Adduction 4 Good External Rotation 4+ Good+ Internal Rotation 4+ Good+ Knee Strength Knee Manual Muscle Testing Right Flexion (S2) 4- Good- Extension (L3) 4 Good Left Flexion (S2) 4+ Good+ Extension (L3) 4+ Good+ PT-OP-T Assessment and Plan Start: 12/31/20 09:39 Freq: Status: Active Protocol: Document 12/30/20 15:15 DCW (Rec: 12/31/20 10:22 [facility] [id number]) Physical Therapy Assessment Rehab Potential Rehabilitation Potential Good Evaluation Complexity Number of Personal Factors/Comorbidities 3 or More Number of Body Systems Impaired 3 Clinical Presentation at Evaluation Evolving Impairments Impairments Activity Tolerance,Functional Activities,Functional Mobility ,Gait,Pain,Posture,ROM,Soft Tissue Mobility,Strength,Tone Goals Four Impairment Mod-Severe tone in paraspinal and hip musculature limits lumbar ROM Imaging Clerk Goal (LTG) Pt to present with mild tone in paraspinals, psoas, piriformis, and QL bilaterally LTG Duration 02/28/21 Three Impairment LE weakness R>L Imaging Clerk Goal (LTG) Pt to increase R LE strength to at least 4/5 in all planes LTG Duration 02/28/21 Two Impairment Pt unable to drive further than [place] due to pain Long-Term Goal (LTG) Pt to tolerate sitting for 60 minutes without increased pain to increase distance he is able to travel from home. LTG Duration 02/28/21 One Impairment Pt does not have an appropriate home exercise program Short Term Goal (STG) Pt to be independent and compliant with an appropriate HEP STG Duration 01/28/21 Assessment Summary Assessment Pt presents to skilled therapy with significant low back dysfunction. It is very difficult at this time to properly DDx pt because all special tests are positive, which does not help to rule in or out anything. Pt has significant hypertonia throughout paraspinals and hip musculature, which limits his mobility and is increasingly affecting his participation in his usual activities. Pt's history of right leg issues, including a crush injury and compartment syndrome, have changed his gait pattern, and likely affect his hip and low back enough to worsen his pain and symptoms. Pt should benefit from STM to decrease tone, gait training, pain- control modalities, and LE strengthening. Physical Therapy Plan Frequency and Duration Frequency of Treatment 2x/Week Duration of Treatment Two months Plan of Care Start Date 12/30/20 Plan of Care End Date 02/27/21 Therapeutic Interventions Therapeutic Interventions Gait Training,Home Exercise Program,Joint Mobilizations, Manual Therapy,Neuromuscular Re-education,Patient/Caregiver Education,Self-Care/Home Management,Soft Tissue Mobilization,Therapeutic Activities,Therapeutic Exercises Modalities Cold Pack/Ice Massage,Electric Stimulation,Hot Packs, Ultrasound Next Visit Focus/Plan Next Note Type Treatment Note Next Visit Plan LE strengthening, STM, e-stim/ heat
--- NOTE | 2021-01-04 15:59 | PT.OTN ---
Current Diagnoses Spondylosis without myelopathy or radiculopathy, lumbar region (01/04/21) Physical Therapy Treatment Note PT-OP-A Visit Information Start: 12/31/20 09:39 Freq: Status: Active Protocol: Document 01/04/21 15:15 DCW (Rec: 01/04/21 15:59 DCW [id number]) Out-Patient Physical Therapy Visit Information Visit Information Visit Type Treatment Note Visit Start Time 15:15 Visit Stop Time 16:00 Total Visit Minutes 45 Visit Number 2 Number of ACTOR UNDERSTUDY Visits 0 Evaluation Information Evaluation Date 12/30/20 PT-OP-B Current Condition Start: 12/31/20 09:39 Freq: Status: Active Protocol: Document 12/30/20 15:15 DCW (Rec: 12/31/20 10:22 DCW [id number]) Current Condition History of Current Condition Onset Date Three month history Current Complaints worsening low back pain History of Current Condition Pt is a 55 year old male presenting to skilled physical therapy with a three month history of worsening low back pain. Pt notes that he has been told he either has nerve damage/impingement or stenosis, but no one has been able to give him an answer yet. 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 Pt reports his pain is worst when getting up in the morning , lifting weight, walking more than a quarter mile, or sitting longer than 35-40 minutes. Pt admits it has also been affecting his sleep, which hasn't helped at all. Complicating his history is that 2.5 years ago, pt was in an accident where his right leg got crushed, which actually resulted in compartment syndrome. Pt admits that it has completely changed the way he walks. Reports he was told by Dr Fierro he needs to try six weeks of PT before getting any injections. Prior Treatments and Tests Lumbar MRI: IMPRESSION: Multiple levels lumbar spine degenerative change are seen, which are overall most prominent at the L5-L6 level. Transitional lumbar anatomy, with 6 lumbar type vertebral bodies. per Rosales Meng M.D. on 07/25/2020 Treatment Goals Patient/Caregiver Goals Pt's stated goals are to decrease his pain and improve his sleep PT-OP-C Subjective Start: 12/31/20 09:39 Freq: Status: Active Protocol: Document 01/04/21 15:15 DCW (Rec: 01/04/21 15:59 DCW [id number]) OP-PT Subjective Patient Comments Patient Comments Pt notes he is alright today . PT-OP-F Manual Assessment Start: 12/31/20 09:39 Freq: Status: Active Protocol: Document 12/30/20 15:15 DCW (Rec: 12/31/20 10:22 DCW [id number]) Manual Assessments Soft Tissue Assessment Soft Tissue Mobility Assessment Severe tone and tenderness to palpation 3/4: Wincing and withdraw along bilateral piriformis, bilateral paraspinals, bilateral psoas, bilateral QL Joint Mobility Assessment Joint Mobility Assessment Lumbar hypomobility L1-L6 (per MRI, lumbarization of S1) PT-OP-K Range of Motion Start: 12/31/20 09:39 Freq: Status: Active Protocol: Document 12/30/20 15:15 DCW (Rec: 12/31/20 10:22 DCW [id number]) Lumbar Spine Range of Motion Lumbar Spine Active Degrees Testing Position Standing Flexion 35 Extension 15 ROM Limitations Soft Tissue Tightness,Muscle Tone PT-OP-L Special Tests Start: 12/31/20 09:39 Freq: Status: Active Protocol: Document 12/30/20 15:15 DCW (Rec: 12/31/20 10:22 DCW [id number]) Special Tests Lumbar Spine Special Tests EHSAN Test Results Positive Bilaterally Lateral SI Compression Test Results Positive Bilaterally Vertical Spine Loading Test Results Positive Bilaterally Macario Test Results Positive Bilaterally Straight Leg Raise Test Results Positive Bilaterally Slump Test Results Positive Right Manual Traction Test Results Worsens pain Compression Test Results Positive Right A-P Shearing Test Results Positive Bilaterally PT-OP-M Strength Start: 12/31/20 09:39 Freq: Status: Active Protocol: Document 12/30/20 15:15 DCW (Rec: 12/31/20 10:22 DCW [id number]) Hip Strength Hip Manual Muscle Testing Right Flexion (L2) 4- Good- Extension (S1) 4- Good- Abduction 4- Good- Adduction 4- Good- External Rotation 4 Good Internal Rotation 4- Good- Left Flexion (L2) 4+ Good+ Extension (S1) 4 Good Abduction 4 Good Adduction 4 Good External Rotation 4+ Good+ Internal Rotation 4+ Good+ Knee Strength Knee Manual Muscle Testing Right Flexion (S2) 4- Good- Extension (L3) 4 Good Left Flexion (S2) 4+ Good+ Extension (L3) 4+ Good+ PT-OP-Q Treatments Start: 12/31/20 09:39 Freq: Status: Active Protocol: Document 01/04/21 15:15 DCW (Rec: 01/04/21 15:59 DCW [id number]) Cardio Equipment Recumbent Elliptical ([employer] Duration (Minutes) 5 Resistance 0 Seat Position 10 Gym Equipment Therapeutic Ball Low trunk rotation Exercise Details Low trunk rotation Ball Size/Color Red - 55 cm Body Position Supine Therapeutic Exercises Supine Exercises 1 Supine Exercise Name PPT /c TrA activation Reps/Minutes 5 hold Manual Therapy Treatment Soft Tissue Mobilization 2 Body Location B Lumbar paraspinals/ Piriformis Mobilization Type Sustained Pressure,Trigger Point Release Intensity/Depth Moderate Body Position Sidelying 1 Body Location B Psoas Mobilization Type Sustained Pressure,Trigger Point Release Intensity/Depth Moderate Body Position Supine PT-OP-T Assessment and Plan Start: 12/31/20 09:39 Freq: Status: Active Protocol: Document 01/04/21 15:15 DCW (Rec: 01/04/21 15:59 DCW [id number]) Physical Therapy Assessment Assessment Summary Assessment Pt severely limited in participation of PT due to pain, pain increases to a 7/10 when on the recumbent elliptical. Physical Therapy Plan Frequency and Duration Frequency of Treatment 2x/Week Duration of Treatment Two months Plan of Care Start Date 12/30/20 Plan of Care End Date 02/27/21 Therapeutic Interventions Therapeutic Interventions Gait Training,Home Exercise Program,Joint Mobilizations, Manual Therapy,Neuromuscular Re-education,Patient/Caregiver Education,Self-Care/Home Management,Soft Tissue Mobilization,Therapeutic Activities,Therapeutic Exercises Modalities Cold Pack/Ice Massage,Electric Stimulation,Hot Packs, Ultrasound Next Visit Focus/Plan Next Note Type Treatment Note Next Visit Plan LE strengthening, STM, e-stim/ heat
--- NOTE | 2021-01-06 15:53 | PT.OTN ---
Current Diagnoses Spondylosis without myelopathy or radiculopathy, lumbar region (01/06/21) Physical Therapy Treatment Note PT-OP-A Visit Information Start: 12/31/20 09:39 Freq: Status: Active Protocol: Document 01/06/21 15:15 DCW (Rec: 01/06/21 15:53 DCW [id number]) Out-Patient Physical Therapy Visit Information Visit Information Visit Type Treatment Note Visit Start Time 15:15 Visit Stop Time 16:00 Total Visit Minutes 45 Visit Number 3 Number of DIRECTOR TRIAL Visits 0 Evaluation Information Evaluation Date 12/30/20 PT-OP-B Current Condition Start: 12/31/20 09:39 Freq: Status: Active Protocol: Document 12/30/20 15:15 DCW (Rec: 12/31/20 10:22 DCW [id number]) Current Condition History of Current Condition Onset Date Three month history Current Complaints worsening low back pain History of Current Condition Pt is a 55 year old male presenting to skilled physical therapy with a three month history of worsening low back pain. Pt notes that he has been told he either has nerve damage/impingement or stenosis, but no one has been able to give him an answer yet. 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 Pt reports his pain is worst when getting up in the morning , lifting weight, walking more than a quarter mile, or sitting longer than 35-40 minutes. Pt admits it has also been affecting his sleep, which hasn't helped at all. Complicating his history is that 2.5 years ago, pt was in an accident where his right leg got crushed, which actually resulted in compartment syndrome. Pt admits that it has completely changed the way he walks. Reports he was told by Dr Fierro he needs to try six weeks of PT before getting any injections. Prior Treatments and Tests Lumbar MRI: IMPRESSION: Multiple levels lumbar spine degenerative change are seen, which are overall most prominent at the L5-L6 level. Transitional lumbar anatomy, with 6 lumbar type vertebral bodies. per Rosales Meng M.D. on 07/25/2020 Treatment Goals Patient/Caregiver Goals Pt's stated goals are to decrease his pain and improve his sleep PT-OP-C Subjective Start: 12/31/20 09:39 Freq: Status: Active Protocol: Document 01/06/21 15:15 DCW (Rec: 01/06/21 15:53 DCW [id number]) OP-PT Subjective Patient Comments Patient Comments Pt reports feeling nauseated and dizzy today. PT-OP-F Manual Assessment Start: 12/31/20 09:39 Freq: Status: Active Protocol: Document 12/30/20 15:15 DCW (Rec: 12/31/20 10:22 DCW [id number]) Manual Assessments Soft Tissue Assessment Soft Tissue Mobility Assessment Severe tone and tenderness to palpation 3/4: Wincing and withdraw along bilateral piriformis, bilateral paraspinals, bilateral psoas, bilateral QL Joint Mobility Assessment Joint Mobility Assessment Lumbar hypomobility L1-L6 (per MRI, lumbarization of S1) PT-OP-K Range of Motion Start: 12/31/20 09:39 Freq: Status: Active Protocol: Document 12/30/20 15:15 DCW (Rec: 12/31/20 10:22 DCW [id number]) Lumbar Spine Range of Motion Lumbar Spine Active Degrees Testing Position Standing Flexion 35 Extension 15 ROM Limitations Soft Tissue Tightness,Muscle Tone PT-OP-L Special Tests Start: 12/31/20 09:39 Freq: Status: Active Protocol: Document 12/30/20 15:15 DCW (Rec: 12/31/20 10:22 DCW [id number]) Special Tests Lumbar Spine Special Tests EHSAN Test Results Positive Bilaterally Lateral SI Compression Test Results Positive Bilaterally Vertical Spine Loading Test Results Positive Bilaterally Macario Test Results Positive Bilaterally Straight Leg Raise Test Results Positive Bilaterally Slump Test Results Positive Right Manual Traction Test Results Worsens pain Compression Test Results Positive Right A-P Shearing Test Results Positive Bilaterally PT-OP-M Strength Start: 12/31/20 09:39 Freq: Status: Active Protocol: Document 12/30/20 15:15 DCW (Rec: 12/31/20 10:22 DCW [id number]) Hip Strength Hip Manual Muscle Testing Right Flexion (L2) 4- Good- Extension (S1) 4- Good- Abduction 4- Good- Adduction 4- Good- External Rotation 4 Good Internal Rotation 4- Good- Left Flexion (L2) 4+ Good+ Extension (S1) 4 Good Abduction 4 Good Adduction 4 Good External Rotation 4+ Good+ Internal Rotation 4+ Good+ Knee Strength Knee Manual Muscle Testing Right Flexion (S2) 4- Good- Extension (L3) 4 Good Left Flexion (S2) 4+ Good+ Extension (L3) 4+ Good+ PT-OP-Q Treatments Start: 12/31/20 09:39 Freq: Status: Active Protocol: Document 01/06/21 15:15 DCW (Rec: 01/06/21 15:53 DCW [id number]) Cardio Equipment Recumbent Elliptical ([employer]) Duration (Minutes) 5 Resistance 1 Seat Position 11 Gym Equipment Shuttle Recovery Unilateral Squats Resistance 25# Shuttle Recovery Platform Stable Bilateral Squats Resistance 50# Shuttle Recovery Platform Stable Therapeutic Ball Resisted hip flexion Exercise Details Resisted hip/knee flexion Ball Size/Color Red - 55 cm Lv 2 T-band Low trunk rotation Exercise Details Low trunk rotation Ball Size/Color Red - 55 cm Body Position Supine PT-OP-T Assessment and Plan Start: 12/31/20 09:39 Freq: Status: Active Protocol: Document 01/06/21 15:15 DCW (Rec: 01/06/21 15:53 DCW [id number]) Physical Therapy Assessment Impairments Impairments Activity Tolerance,Functional Activities,Functional Mobility ,Gait,Pain,Posture,ROM,Soft Tissue Mobility,Strength,Tone Goals Four Impairment Mod-Severe tone in paraspinal and hip musculature limits lumbar ROM Drapery Hemmer Automatic Goal (LTG) Pt to present with mild tone in paraspinals, psoas, piriformis, and QL bilaterally LTG Duration 02/28/21 Three Impairment LE weakness R>L Drapery Hemmer Automatic Goal (LTG) Pt to increase R LE strength to at least 4/5 in all planes LTG Duration 02/28/21 Two Impairment Pt unable to drive further than [place] due to pain Drapery Hemmer Automatic Goal (LTG) Pt to tolerate sitting for 60 minutes without increased pain to increase distance he is able to travel from home. LTG Duration 02/28/21 One Impairment Pt does not have an appropriate home exercise program Short Term Goal (STG) Pt to be independent and compliant with an appropriate HEP STG Duration 01/28/21 Assessment Summary Assessment Pt still very limited with participation in therapy secondary to pain. Trial of e- stim today to hopefully assist with pain control. Physical Therapy Plan Frequency and Duration Frequency of Treatment 2x/Week Duration of Treatment Two months Plan of Care Start Date 12/30/20 Plan of Care End Date 02/27/21 Therapeutic Interventions Therapeutic Interventions Gait Training,Home Exercise Program,Joint Mobilizations, Manual Therapy,Neuromuscular Re-education,Patient/Caregiver Education,Self-Care/Home Management,Soft Tissue Mobilization,Therapeutic Activities,Therapeutic Exercises Modalities Cold Pack/Ice Massage,Electric Stimulation,Hot Packs, Ultrasound Next Visit Focus/Plan Next Note Type Treatment Note Next Visit Plan LE strengthening, STM, e-stim/ heat
--- NOTE | 2021-01-11 13:10 | PT-OP ANOTE ---
Pt cancelled same day appt, reasoning due to copay to high. When LANDSCAPE ARTIST called to speak with, pt didn't comment on the copay, stated I am doing fine. Pt has one more appt with LANDSCAPE ARTIST then no more scheduled. Next appt, discuss his plan with how responding to PT and adding more appts, especially to follow up with PT.
--- NOTE | 2021-01-11 13:23 | PT-OP ANOTE ---
Copied message from patient messages for increased therapist awareness in note area of EMR: bowling or skating front desk clerk called pt today to schedule adding more appts per FIRE PRODUCTION OPERATOR request only having 2 more appts scheduled at this time, he cnxd today 01/11/21 and appt with FIRE PRODUCTION OPERATOR as he needs an appt this Monday. He chose to r/s w/ [facility] this Mon, as [facility] has no openings and Ingrid FIRE PRODUCTION OPERATOR gone on PTO. At this time he chose not to schedule anymore appts, find out at Mon appt if wanting to continue PT, if not does he have an appropriate and I with current HEP?
--- NOTE | 2021-05-25 14:45 | PT.OPDS ---
Current Diagnoses Spondylosis without myelopathy or radiculopathy, lumbar region (01/06/21) Visit Care Team Role Provider Type Seferino Meier DO Primary Care Provider Physician Specialty: Family Practice Address: [address] [place] [address], [id number] Email: [email or web address] Som Fierro DO Attending Provider Physician Referring Provider Specialty: Physiatry Pain Management Address: [facility] [place], [address] Email: [email or web address] Visit Number Visit Number 3 Discharge Summary PT-OP-B Current Condition Start: 12/31/20 09:39 Freq: Status: Active Protocol: Document 12/30/20 15:15 DCW (Rec: 12/31/20 10:22 DCW [id number]) Current Condition History of Current Condition Onset Date Three month history Current Complaints worsening low back pain History of Current Condition Pt is a 55 year old male presenting to skilled physical therapy with a three month history of worsening low back pain. Pt notes that he has been told he either has nerve damage/impingement or stenosis, but no one has been able to give him an answer yet. Pt works here at in [employer], and reports it is getting more difficult for him to get through his shifts. Pt reports his pain is worst when getting up in the morning , lifting weight, walking more than a quarter mile, or sitting longer than 35-40 minutes. Pt admits it has also been affecting his sleep, which hasn't helped at all. Complicating his history is that 2.5 years ago, pt was in an accident where his right leg got crushed, which actually resulted in compartment syndrome. Pt admits that it has completely changed the way he walks. Reports he was told by Dr Fierro he needs to try six weeks of PT before getting any injections. Prior Treatments and Tests Lumbar MRI: IMPRESSION: Multiple levels lumbar spine degenerative change are seen, which are overall most prominent at the L5-L6 level. Transitional lumbar anatomy, with 6 lumbar type vertebral bodies. per Rosales Meng M.D. on 07/25/2020 Treatment Goals Patient/Caregiver Goals Pt's stated goals are to decrease his pain and improve his sleep PT-OP-C Subjective Start: 12/31/20 09:39 Freq: Status: Active Protocol: Document 01/06/21 15:15 DCW (Rec: 01/06/21 15:53 DCW [id number]) OP-PT Subjective Patient Comments Patient Comments Pt reports feeling nauseated and dizzy today. PT-OP-F Manual Assessment Start: 12/31/20 09:39 Freq: Status: Active Protocol: Document 12/30/20 15:15 DCW (Rec: 12/31/20 10:22 DCW [id number]) Manual Assessments Soft Tissue Assessment Soft Tissue Mobility Assessment Severe tone and tenderness to palpation 3/4: Wincing and withdraw along bilateral piriformis, bilateral paraspinals, bilateral psoas, bilateral QL Joint Mobility Assessment Joint Mobility Assessment Lumbar hypomobility L1-L6 (per MRI, lumbarization of S1) PT-OP-K Range of Motion Start: 12/31/20 09:39 Freq: Status: Active Protocol: Document 12/30/20 15:15 DCW (Rec: 12/31/20 10:22 DCW [id number]) Lumbar Spine Range of Motion Lumbar Spine Active Degrees Testing Position Standing Flexion 35 Extension 15 ROM Limitations Soft Tissue Tightness,Muscle Tone PT-OP-L Special Tests Start: 12/31/20 09:39 Freq: Status: Active Protocol: Document 12/30/20 15:15 DCW (Rec: 12/31/20 10:22 DCW [id number]) Special Tests Lumbar Spine Special Tests EHSAN Test Results Positive Bilaterally Lateral SI Compression Test Results Positive Bilaterally Vertical Spine Loading Test Results Positive Bilaterally Macario Test Results Positive Bilaterally Straight Leg Raise Test Results Positive Bilaterally Slump Test Results Positive Right Manual Traction Test Results Worsens pain Compression Test Results Positive Right A-P Shearing Test Results Positive Bilaterally PT-OP-M Strength Start: 12/31/20 09:39 Freq: Status: Active Protocol: Document 12/30/20 15:15 DCW (Rec: 12/31/20 10:22 DCW [id number]) Hip Strength Hip Manual Muscle Testing Right Flexion (L2) 4- Good- Extension (S1) 4- Good- Abduction 4- Good- Adduction 4- Good- External Rotation 4 Good Internal Rotation 4- Good- Left Flexion (L2) 4+ Good+ Extension (S1) 4 Good Abduction 4 Good Adduction 4 Good External Rotation 4+ Good+ Internal Rotation 4+ Good+ Knee Strength Knee Manual Muscle Testing Right Flexion (S2) 4- Good- Extension (L3) 4 Good Left Flexion (S2) 4+ Good+ Extension (L3) 4+ Good+ PT-OP-T Assessment and Plan Start: 12/31/20 09:39 Freq: Status: Active Protocol: Document 05/25/21 14:43 DCW (Rec: 05/25/21 14:45 DCW [id number]) Physical Therapy Assessment Assessment Summary Assessment Pt canceled last two scheduled visits, did not want to schedule more at that time for varying reasons. Pt has now not been seen in more than four months, will be discharged from skilled therapy at this time. Pt will require a new referral in order to return to therapy Physical Therapy Plan Discharge Physical Therapy Discharge Reasons No Longer Attending PT Next Visit Focus/Plan Next Note Type Discharge Summary
== END 2021-05-26 11:17 | disposition home or self-care (01) ==
LOC: PHYS 15:15
PROVIDERS: PCP Family Medicine; Referring Provider Physical Medicine & Rehabilitation; Visit Provider Physical Medicine & Rehabilitation
DX: M47.816 Spondylosis without myelopathy or radiculopathy, lumbar region (principal)
CPT/HCPCS: 97014; 97110; 97140; 97162; G0283

== ENCOUNTER → 2021-02-23 14:49 | Outpatient (CLI) | payer OTHER, SELFPAY ==
[2021-02-23 15:32] LABS: COVID19 -Nasal RAPID Negative (Negative)
== END ==
PROVIDERS: PCP Family Medicine; Visit Provider Physical Medicine & Rehabilitation
DX: Z20.822 Contact with and (suspected) exposure to COVID-19 (principal)
CPT/HCPCS: 87635; C9803

== ENCOUNTER 2021-02-25 14:55 | Outpatient (CLI) | payer OTHER, SELFPAY ==
[2021-02-25] VITALS (7 sets, daily range): BP systolic 102–159; BP diastolic 60–86; PULSE 61–72; RESP 12–20; TEMP 36.9; O2SAT 95–98
--- NOTE | 2021-02-25 14:59 | DI.RAD.S_ITS ---
PROCEDURE: PAIN L/S FACET INJ/BLK 1ST BROCK COMPARISON: [facility], MR, MR LUMBAR SPINE WO CON, 07/25/2020, 8:23. INDICATIONS: Bilateral L4-5 L5-S1 facet joint injection FINDINGS: Fluoroscopic spot filming was performed to verify placement of spinal needles at the L4-L5 level and L5-S1 level on both sides, as labeled on the films. Appropriate location of the needle tips was confirmed by injection of iodinated contrast. IMPRESSION: Intraprocedural examination within normal limits. Dictated by: Rosales Meng M.D. on 02/25/2021 at 16:39 Approved by: Rosales Meng M.D. on 02/25/2021 at 16:40
[2021-02-25] MEDS: fentaNYL 100 MCG/2 ML INJ 50 MCG IV (15:32)
[2021-02-25] MEDS: MIDAZOLAM 5 MG/5 ML VIAL IV (15:32)
[2021-02-25] MEDS: LIDOCAINE 1% 20 ML 10 ML INJ (15:33)
[2021-02-25] MEDS: BUPIVACAINE 0.5% (PF) VIAL 5 ML INJ (15:33)
[2021-02-25] MEDS: IOPAMIDOL 15 ML VIAL 3 ML INJ (15:33)
[2021-02-25] MEDS: BETAMETHASONE 30 MG/5 ML MDV 12 MG INJ (15:33)
--- NOTE | 2021-02-25 15:40 | P.PCN_ITS ---
Date/Time/Diagnoses Date of procedure: 02/25/21 Time of procedure: 15:41 Pre-procedure diagnosis: 1. FACET ARTHROPATHY 2. AXIAL LBP 3. MULTILEVEL DDD Post-procedure diagnosis: same Procedure Notes Procedure: 1. FLUOROSCOPICALLY GUIDED CONTRAST CONTROLLED FACET JOINT INJECTIONS BILATERAL L4/5, L5/S1 Indications: Alvaro is referred by Dr. Meier for treatment of Axial LBP Physician: Som Fierro Total Fluoroscopy time (seconds): 8 Total sedation minutes: 9 Complications: none Procedure in detail & Post-procedure care: FINDINGS Multilevel Facet Arthropathy with Clinically significant axial LBP DESCRIPTION OF PROCEDURE Fluoroscopically guided, contrast-controlled bilateral L4/5, L5/S1 facet joint injections. Following review of allergy and review of potential side effects and complications, including, but not necessarily limited to, infection, allergic reaction, local tissue breakdown, stroke, temporary or permanent nerve injury, paralysis, and possible , the patient indicated that the patient understood and agreed to proceed. An informed consent document was signed by the patient, witnessed by a nurse, and placed in the patient's chart. Additionally, other treatment options including medications, modalities, and physical therapy were reviewed with the patient. After review of previous anaesthesic history and IV conscious sedation the patient was deemed safe to proceed with today?s procedure with IV conscious sedation as ASA class II designation. Safety time-out was performed to confirm patient ID, procedure to be performed and site of procedure. IV sedation was accomplished with a combination of 4mg of Versed and 50mcg of Fentanyl was administered by the RN after DO order, titrated to patient comfort during the course of the procedure while the patient remained responsive to all verbal commands In the prone position, following sterile prep and drape of the lumbar region, the posterior aspect of the L4/5, L5/S1 facet joints were identified fluoroscopically. The skin was anesthetized via a 25-gauge 1.5inch needle with 1% lidocaine solution into the corresponding facet joints. At this point, a 22- gauge 3.5-inch spinal needle was atraumatically introduced and advanced under fluoroscopic guidance into the corresponding facet joints. Following negative aspiration, injections of approximately 0.2cc of Isovue 200 confirmed inter articular placement without vascular uptake. The identical procedure was then performed at the L4/5, L5/S1 facet joints on the left. Radiological data, including multiple fluoroscopic views of the lumbosacral spine, reveal a spinal needle at the L4/5, L5/S1 facet joints bilaterally. Subsequent views show flow of contrast material both superiorly and inferiorly within the joint space without vascular or intrathecal uptake. At this point, a total of 0.5cc including a mixture of 0.25cc Marcaine and 0.25cc betamethasone was injected without complication into each of the corresponding facet joints. The patient tolerated the procedure well without signs or symptoms of complications prior to transfer to the recovery area continued monitoring without incident. The patient was then transferred to the recovery area where they were observed for an appropriate period of time after the injection. The patient reported a VAS score of 7 prior to the procedure and a post- procedure VAS of 0. POST OP INSTRUCTIONS The patient was provided a Pain Log to continue to record their response to the target-specific procedure prior to follow-up visit with their referring physician. Additionally, specific post-injection care instructions and a contact number to our office were provided if concerns arise regarding possible complications associated with the procedure are suspected.
== END 2021-02-25 16:05 | disposition home or self-care (01) ==
LOC: RAD 14:58
PROVIDERS: PCP Family Medicine; Referring Provider Physical Medicine & Rehabilitation; Visit Provider Physical Medicine & Rehabilitation
DX: M47.816 Spondylosis without myelopathy or radiculopathy, lumbar region (principal); M47.817 Spondylosis without myelopathy or radiculopathy, lumbosacral region; M51.36 Other intervertebral disc degeneration, lumbar region; M51.37 Other intervertebral disc degeneration, lumbosacral region; M54.5 Low back pain
CPT/HCPCS: 64493; 64494; J0702; J2250; J3010

== ENCOUNTER 2021-04-27 19:56 | Emergency (ER) | payer OTHER, SELFPAY ==
[2021-04-27] VITALS (14 sets, daily range): BP systolic 145–187; BP diastolic 64–112; PULSE 63–79; RESP 16–27; TEMP 37.3; O2SAT 94–98
--- NOTE | 2021-04-27 20:03 | ED.CHESTPAIN ---
HPI - Chest Pain General Chief Complaint: Chest Pain Stated Complaint: chest/back pain Time Seen by Provider: 04/27/21 20:03 Source: patient Mode of arrival: Ambulatory Limitations: no limitations History of Present Illness HPI narrative: 56-year-old male of prediabetes, hypertension, hyperlipidemia and lumbar radiculopathy, spinal stenosis presents with a chief complaint of sharp and stabbing left anterior chest pain, left side of neck pain, left shoulder pain that is worse when he moves his head, moves his torso or uses his arm. He denies any injury or obvious overuse. He denies any numbness, tingling or weakness. He denies any trouble breathing, fever or chills. He denies nausea, vomiting or diaphoresis. He denies any exertional component to his symptoms. He states that he is out of his pain medications. MD complaint: chest pain Onset (ago): hour(s) Duration: constant Pain location: left chest Severity: moderate Quality: sharp Pain radiation: LUE Relieving factors: remaining still Exacerbating factors: inspiration, palpation and movement Treatments prior to arrival chest pain: none Related Data Home Medications Medication Instructions Recorded Confirmed omeprazole 20 mg PO DAILY 06/13/19 04/20/21 aspirin 81 mg tablet,delayed 81 mg PO DAILY 03/29/20 04/20/21 release duloxetine 60 mg capsule,delayed 120 mg PO DAILY cap 04/20/21 04/20/21 release Previous Rx's Medication Instructions Recorded albuterol sulfate 90 mcg/actuation 2 puff INHALATION Q4-6H PRN #18 g 09/25/20 aerosol inhaler celecoxib 200 mg capsule 200 mg PO BID #60 cap 12/16/20 cyclobenzaprine 10 mg tablet 10 mg PO BID PRN #60 tab 12/16/20 amlodipine 2.5 mg tablet See Rx Instructions .ROUTE 02/02/21 .COMPLEX #90 tab trazodone 100 mg tablet See Rx Instructions .ROUTE 03/16/21 .COMPLEX #30 tab losartan 100 mg tablet See Rx Instructions .ROUTE 03/19/21 .COMPLEX #90 tab hydrocodone 5 mg-acetaminophen 325 1 tab PO Q6H PRN #60 tab 04/20/21 mg tablet duloxetine 60 mg capsule,delayed See Rx Instructions .ROUTE 04/26/21 release .COMPLEX #90 cap hydrocodone-acetaminophen 1 tab PO Q4-6H PRN #10 tab 04/28/21 methylprednisolone [Medrol (Manas)] See Rx Instructions PO .COMPLEX 04/28/21 #21 ea Allergies Allergy/AdvReac Type Severity Reaction Status Date / Time ketamine AdvReac Severe Agitated Verified 04/20/21 10:02 gabapentin AdvReac Intermediate memory Verified 04/20/21 10:02 change Review of Systems Constitutional Constitutional: Denies chills, Denies fatigue, Denies fever(s), Denies frequent falls, Denies lethargy and Denies weakness Eyes Eyes: Denies change in vision, Denies eye discharge, Denies irritation and Denies loss of vision ENT Ears, Nose, Mouth, and Throat: Denies change in voice, Denies dizziness, Denies neck pain, Denies sore throat and Denies throat swelling Cardiovascular Cardiovascular: Reports chest pain, Denies irregular heart rhythm, Denies lightheadedness, Denies palpitations, Denies dyspnea, Denies dyspnea on exertion and Denies orthopnea Respiratory Respiratory: Denies cough, Reports pain on inspiration, Denies dyspnea, Denies dyspnea on exertion and Denies wheezing Gastrointestinal Gastrointestinal: Denies abdominal pain, Denies change in bowel habits, Denies diarrhea, Denies nausea and Denies vomiting Musculoskeletal Musculoskeletal: Denies neck pain, Denies numbness and Reports radiating pain into limb Integumentary/Breasts Skin/Breast: Denies pruritus, Denies erythema, Denies rash and Denies wounds Neurologic Neurologic: Denies behavioral changes, Denies confusion, Denies dizziness, Denies frequent falls, Denies loss of vision, Denies numbness and Denies weakness Psychiatric Psychiatric: Denies anxiety, Denies behavioral changes, Denies confusion, Denies depression, Denies homicidal ideation and Denies suicidal ideation Endocrine Endocrine: Denies fatigue, Denies flushing and Denies palpitations Hematologic/Lymphatic Hematologic/Lymphatic: Denies easy bruising Allergic/Immunologic Allergic/Immunologic: Denies urticaria, Denies throat swelling and Denies wheezing Patient History Medical History Acute bronchitis Adrenal nodule Chronic pain Chronic pain of right lower extremity Compartment syndrome Diverticulosis Facet arthropathy, lumbar History of diverticulitis Hypertension Hypertension Leg pain, right Liver nodule Low back pain Lumbar radiculopathy Lumbar stenosis Memory loss Ureteropelvic junction (UPJ) obstruction Surgical History Status post decompression of compartment syndrome Social History Smoking Status: Current every day smoker Smoking Status: Current every day smoker alcohol intake frequency: 0-2 drinks per day Substance Use Type: does not use Exam Narrative Exam Narrative: GENERAL: 56 [] year old patient appears stated age. Well-developed patient, in mild distress. Obviously in pain splinting his left shoulder and arm HEAD: Atraumatic. Normocephalic. EYES: Pupils equal round and reactive. Extraocular motions intact. No scleral icterus. No injection or drainage. ENT: Nose without bleeding, purulent drainage. Throat without erythema, tonsillar hypertrophy or exudate. Airway patent. NECK: Trachea midline. Non tender CARDIOVASCULAR: Regular rate and rhythm without murmurs, gallops, or rubs. Reproducible pain with deep breath and palpation of left anterior chest RESPIRATORY: Clear to auscultation. Breath sounds equal bilaterally. No wheezes, rales, or rhonchi. GASTROINTESTINAL: Abdomen soft, non-tender, nondistended. EXTREMITIES: Full but painful range of motion of left upper extremity at the shoulder, he states this reproduces the pain that brought him in BACK: Nontender without deformity or crepitance. No flank tenderness. NEURO: AOx3. SKIN: No rash or erythema of visible areas Initial Vital Signs Initial Vital Signs: Vital Signs Temperature 99.1 F 04/27/21 20:05 Pulse Rate 79 04/27/21 20:05 Respiratory Rate 20 04/27/21 20:05 Blood Pressure 187/105 H 04/27/21 20:05 Pulse Oximetry 97 04/27/21 20:05 Course Orders Ordered: ED Orders 04/27/21 20:01 EKG-12 Lead Stat 04/27/21 20:06 XR chest 1V Stat 04/27/21 20:09 Complete Blood Count AUTO DIFF Stat Comprehensive Metabolic Panel Stat Lipase Stat Magnesium Stat NT-proBNP (BNP-Adult 18+) Stat Troponin & CK Cardiac Panel Stat 04/27/21 22:07 CT cervical spine w con Stat 04/27/21 23:15 Troponin I Stat Discontinued Medications Aspirin (Aspirin 81 Mg Chew Tab) 324 mg PO NOW ONE Stop: 04/27/21 20:07 Last Admin: 04/27/21 20:16 Dose: 324 mg Documented by: GABRIEL Dexamethasone (Dexamethasone 10 Mg/Ml Vial) 10 mg IV NOW ONE Stop: 04/27/21 22:08 Last Admin: 04/27/21 22:17 Dose: 10 mg Documented by: GABRIEL Hydromorphone HCl (Hydromorphone 1 Mg Inj) 1 mg IV NOW ONE Stop: 04/27/21 22:08 Last Admin: 04/27/21 22:17 Dose: 1 mg Documented by: GABRIEL Sodium Chloride (Normal Saline 0.9%) 1,000 mls @ 150 mls/hr IV CONT ROSY Last Infusion: 04/28/21 00:20 Dose: 0 mls/hr Documented by: Admin: 04/27/21 20:15 Dose: 150 mls/hr Documented by: GABRIEL Ketorolac Tromethamine (Ketorolac 30 Mg/Ml Vial) 15 mg IV NOW ONE Stop: 04/27/21 20:07 Last Admin: 04/27/21 20:16 Dose: 15 mg Documented by: GABRIEL Ondansetron HCl (Ondansetron 4 Mg/2 Ml Inj) 4 mg IV NOW ONE Stop: 04/27/21 22:27 Last Admin: 04/27/21 22:27 Dose: 4 mg Documented by: GABRIEL Vital Signs Vital signs: Vital Signs - 8 hr 04/27/21 20:05 04/27/21 20:08 04/27/21 20:30 Temperature 99.1 F Pulse Rate 79 70 68 Respiratory Rate 20 24 23 Blood Pressure 187/105 H Pulse Oximetry 97 98 97 04/27/21 20:31 04/27/21 21:00 04/27/21 21:30 Temperature Pulse Rate 68 64 63 Respiratory Rate 25 H 26 H 18 Blood Pressure 148/64 H Pulse Oximetry 96 96 96 04/27/21 21:32 04/27/21 22:00 04/27/21 22:35 Temperature Pulse Rate 70 70 68 Respiratory Rate 27 H 24 24 Blood Pressure 146/100 H Pulse Oximetry 98 96 94 04/27/21 22:55 04/27/21 23:00 04/27/21 23:01 Temperature Pulse Rate 69 72 73 Respiratory Rate 16 17 20 Blood Pressure 172/101 H 180/112 H Pulse Oximetry 95 94 95 04/27/21 23:25 04/27/21 23:30 04/28/21 00:00 Temperature Pulse Rate 65 63 64 Respiratory Rate 19 19 25 H Blood Pressure 148/82 H 145/81 H Pulse Oximetry 95 94 93 04/28/21 00:01 Temperature Pulse Rate 63 Respiratory Rate 16 Blood Pressure 163/79 H Pulse Oximetry 96 MDM - Chest Pain Lab Data Result diagrams: 04/27/21 20:09 04/27/21 20:09 Labs: Lab Results 04/27/21 04/27/21 04/27/21 Range/Units 20:09 20:09 23:15 WBC 12.8 H (4.5-11.0) X10^3/uL RBC 4.66 (4.5-5.9) X10^6/uL Hgb 14.7 (13.5-17.5) g/dL Hct 44.5 (41-53) % MCV 95.5 (80-100) fL MCH 31.5 (26-34) PG MCHC 32.9 (30-36) % RDW 13.1 (11.6-14.8) % Plt Count 290 (150-400) X10^3/uL Neut % (Auto) 75.2 H (50-75) % Lymph % (Auto) 15.6 L (25-40) % [place] % (Auto) 7.3 (3-14) % Eos % (Auto) 1.3 L (2-4) % Baso % (Auto) 0.6 (0-2) % Neut # (Auto) 9600 H (8840-3103) /uL Lymph # (Auto) 2000 (3811-3411) /uL [place] # (Auto) 900 (0-900) /uL Eos # (Auto) 200 (0-450) /uL Baso # (Auto) 100 (0-100) /uL Sodium 140 (137-145) mmol/L Potassium 4.3 (3.4-5.1) mmol/L Chloride 104 (98-107) mmol/L Carbon Dioxide 26 (22-32) mmol/L BUN 13 (9-20) mg/dL Creatinine 0.85 (0.66-1.25) mg/dL Estimated GFR > 60.0 (>60) mL/min BUN/Creatinine Ratio 15.3 (6-22) Glucose 114 H (70-100) mg/dL Calcium 9.9 (8.4-10.2) mg/dL Magnesium 2.2 (1.6-2.3) mg/dL Total Bilirubin 0.7 (0.2-1.3) mg/dL AST 36 (17-59) IU/L ALT 24 (<50) IU/L Alkaline Phosphatase 62 (38-126) U/L Total Creatine Kinase 212 H (55-170) U/L CK-MB (CK-2) 1.65 (<2.37) ng/mL CK-MB (CK-2) Rel Index 0.8 L (1.5-5.0) % Troponin I < 0.012 < 0.012 (0.01-0.034) ng/mL NT-Pro-B Natriuret Pep 109 (<125) pg/mL Total Protein 7.6 (6.3-8.2) g/dL Albumin 4.5 (3.5-5.0) g/dL Globulin 3.1 (1.7-4.1) g/dL Albumin/Globulin Ratio 1.5 (1.0-2.8) Lipase 118 (23-300) U/L MDM Narrative Medical decision making narrative: Multiple causes of chest pain considered including MO, PE, pneumothorax, pneumonia, aortic dissection, and pleurisy. Patient reports no radiation, no diaphoresis, no provocation with exertion, and no vomiting Patient's symptoms improved over duration of stay with above-stated therapies. Troponin x2 unremarkable, EKG nonischemic, pain reproducible, sharp and stabbing, no exertional component. Findings and discharge diagnosis discussed with patient/family followed by verbalization of understanding Return precautions discussed with patient/family whom verbalize understanding. Discharge Plan Departure Patient Disposition: Home Clinical Impression: Cervical radiculopathy, Atypical chest pain Instructions: DI for Atypical Chest Pain, DI for Cervical Radiculopathy Activity Restrictions/Additional Instructions: *You have been diagnosed with [atypical chest pain and left arm pain most likely a radiculopathy coming from the neck. Your labs and EKGs evaluating heart are very reassuring.] *What to do: *Please continue to take your regular medications as directed. [x ] New medication prescriptions sent to your pharmacy: [ [facility]] [ ] New medication written as a paper prescription [ ] No new medications given *Please follow up with your primary care provider in 2-3 days, call for an appointment. Let them know you were seen in the Emergency Department and that we ask that you be seen in follow up. We will electronically transmit a record of today's note if your PCP is in our system *If you do not have a primary care provider please contact the [facility] Resource line at [phone]. They will ask some questions about your medical history and help get you set up with a doctor in the community. *Return to Emergency Department if you should have any new, worsening or concerning symptoms, such as [fever greater than 101 F, shaking chills, worsening pain, persistent vomiting or other bothersome symptoms] Prescriptions: New methylprednisolone [Medrol (Manas)] 4 mg tablets,dose pack See Rx Instructions PO .COMPLEX Qty: 21 RF: 0 hydrocodone-acetaminophen 5-325 mg tablet 1 tab PO Q4-6H PRN (Reason: pain) Qty: 10 RF: 0 No Action amlodipine 2.5 mg tablet See Rx Instructions .ROUTE .COMPLEX Qty: 90 RF: 1 trazodone 100 mg tablet See Rx Instructions .ROUTE .COMPLEX Qty: 30 RF: 1 losartan 100 mg tablet See Rx Instructions .ROUTE .COMPLEX Qty: 90 RF: 0 hydrocodone-acetaminophen 5-325 mg tablet 1 tab PO Q6H PRN (Reason: pain) Qty: 60 RF: 0 duloxetine 60 mg capsule,delayed release(DR/EC) See Rx Instructions .ROUTE .COMPLEX Qty: 90 RF: 2 aspirin 81 mg tablet,delayed release (DR/EC) 81 mg PO DAILY RF: 0 albuterol sulfate [ProAir HFA] 90 mcg/actuation HFA aerosol inhaler 2 puff inhalation Q4-6H PRN (Reason: shortness of breath or wheezing) Qty: 18 RF: 1 duloxetine 60 mg capsule,delayed release(DR/EC) 120 mg PO DAILY RF: 0 omeprazole 20 mg Capsule,Delayed Release(Dr/Ec) 20 mg PO DAILY RF: 0 celecoxib [Celebrex] 200 mg capsule 200 mg PO BID Qty: 60 RF: 2 cyclobenzaprine 10 mg tablet 10 mg PO BID PRN (Reason: muscle spasm) Qty: 60 RF: 2 Referrals: Seferino Meier, DO [Primary Care Provider] - Stand Alone Forms: Work Release Note
--- NOTE | 2021-04-27 20:06 | DI.RAD.S_ITS ---
PROCEDURE: XR CHEST 1V INDICATIONS: chest pain TECHNIQUE: One view of the chest was acquired. COMPARISON: None. FINDINGS: Surgical changes and devices: None. Lungs and pleura: Lungs are clear. No pleural effusions or pneumothorax. Mediastinum: Mediastinal contours appear normal. Heart size is minimally prominent. Bones and chest wall: No suspicious bony lesions. Overlying soft tissues appear unremarkable. IMPRESSION: No acute pulmonary process. Dictated by: Mesha Malloy M.D. on 04/27/2021 at 20:41 Approved by: Mesha Malloy M.D. on 04/27/2021 at 20:42
[2021-04-27 20:15] LABS: Add Manual Diff / Slide Review NO; Basophils Absolute Auto 100 /uL (0-100); Basophils Percent Auto 0.6 % (0-2); Eosinophils Absolute Auto 200 /uL (0-450); Eosinophils Percent Auto 1.3 % (2-4); Hematocrit 44.5 % (41-53); Hemoglobin 14.7 g/dL (13.5-17.5); Lymphocytes Absolute Auto 2000 /uL (1100-4500); Lymphocytes Percent Auto 15.6 % (25-40); Mean Corpuscular HGB Conc 32.9 % (30-36); Mean Corpuscular Hemoglobin 31.5 PG (26-34); Mean Corpuscular Volume 95.5 fL (80-100); Monocytes Absolute Auto 900 /uL (0-900); Monocytes Percent Auto 7.3 % (3-14); Neutrophils Absolute Auto 9600 /uL (1500-7000); Neutrophils Percent Auto 75.2 % (50-75); Platelet Count 290 X10^3/uL (150-400); Red Blood Cell Count 4.66 X10^6/uL (4.5-5.9); Red Cell Distribution Width 13.1 % (11.6-14.8); White Blood Cell Count 12.8 X10^3/uL (4.5-11.0)
[2021-04-27] MEDS: SODIUM CHLORIDE 0.9% 1,000 ML 150 ML IV (20:15)
[2021-04-27] MEDS: ASPIRIN 81 MG CHEW TAB 324 MG PO (20:16)
[2021-04-27] MEDS: KETOROLAC 30 MG/ML VIAL 15 MG IV (20:16)
[2021-04-27 20:28] LABS: Alanine Aminotransferase 24 IU/L (<50); Albumin 4.5 g/dL (3.5-5.0); Albumin Globulin Ratio 1.5 (1.0-2.8); Alkaline Phosphatase 62 U/L (38-126); Aspartate Aminotransferase 36 IU/L (17-59); BUN Creatinine Ratio 15.3 (6-22); Bilirubin Total 0.7 mg/dL (0.2-1.3); Blood Urea Nitrogen 13 mg/dL (9-20); Calcium 9.9 mg/dL (8.4-10.2); Carbon Dioxide 26 mmol/L (22-32); Chloride 104 mmol/L (98-107); Creatine Kinase 212 U/L (55-170); Estimated Glomerular Filt Rate > 60.0 mL/min (>60); Globulin 3.1 g/dL (1.7-4.1); Glucose 114 mg/dL (70-100); HEMOLYSIS < 15 (0-50); Lipase 118 U/L (23-300); Magnesium 2.2 mg/dL (1.6-2.3); Potassium 4.3 mmol/L (3.4-5.1); Sodium 140 mmol/L (137-145); Total Protein 7.6 g/dL (6.3-8.2)
[2021-04-27 20:40] LABS: NT-proBNP (BNP-Adult 18+) 109 pg/mL (<125); Troponin I < 0.012 ng/mL (0.01-0.034)
[2021-04-27 20:43] LABS: CKMB % Relative Index 0.8 % (1.5-5.0); Creatine Kinase MB 1.65 ng/mL (<2.37)
--- NOTE | 2021-04-27 22:07 | DI.CT.S_ITS ---
PROCEDURE: CT CERVIAL SPINE without CON INDICATIONS: severe neck, left arm pain, no trauma TECHNIQUE: 3 mm thick sections acquired through the levels of interest. Sagittal and coronal reformats were then constructed. For radiation dose reduction, the following was used: automated exposure control. COMPARISON: None. FINDINGS: Image quality: Excellent. Bones: There is straightening and mild reversal of normal cervical lordosis centered at C5-6 level. No acute fracture or dislocation. Degenerative endplate changes and broad-based dorsal disc osteophyte complex formation at C5-6 and C6-7 levels causing [id number] central canal stenosis and mild to moderate bilateral neural foraminal narrowing more prominent at C5-6 level. No suspicious intraosseous lesion. Soft tissues: No gross paraspinous soft tissue abnormality is seen. Visualized bilateral lung apices show no pneumothorax. Thyroid gland is within normal limits. IMPRESSION: 1. No acute cervical spine fracture or dislocation. 2. Degenerative disc disease at C5-6 and C6-7 levels as above. Dictated by: Rodriguez Schilling M.D. on 04/28/2021 at 8:16 Approved by: Rodriguez Schilling M.D. on 04/28/2021 at 8:17
[2021-04-27] MEDS: DEXAMETHASONE 10 MG/ML VIAL IV (22:17)
[2021-04-27] MEDS: HYDROMORPHONE 1 MG INJ IV (22:17)
[2021-04-27] MEDS: ONDANSETRON 4 MG/2 ML INJ IV (22:27)
[2021-04-27 23:46] LABS: Troponin I < 0.012 ng/mL (0.01-0.034)
[2021-04-28] VITALS: PULSE 64; RESP 25; O2SAT 93
[2021-04-28 00:01] VITALS: BP 163/79; PULSE 63; RESP 16; O2SAT 96
== END 2021-04-28 00:23 | disposition home or self-care (01) ==
PROVIDERS: Emergency Provider Emergency Medicine; PCP Family Medicine
DX: M54.12 Radiculopathy, cervical region (principal); R07.89 Other chest pain
CPT/HCPCS: 36415; 71045; 72126; 80053; 82550; 82553; 83690; 83735; 83880; 84484; 85025; 93005; 93010; 96361; 96374; 96375; 99284; J1100; J1170; J1885; J2405

== ENCOUNTER → 2021-05-04 08:11 | Outpatient (CLI) | payer OTHER, SELFPAY ==
[2021-05-04 12:18] LABS: COVID19 -Nasal RAPID Negative (Negative)
== END ==
PROVIDERS: PCP Family Medicine; Visit Provider Physical Medicine & Rehabilitation
DX: Z20.822 Contact with and (suspected) exposure to COVID-19 (principal)
CPT/HCPCS: 87635; C9803

== ENCOUNTER 2021-05-06 14:16 | Outpatient (CLI) | payer OTHER, SELFPAY ==
[2021-05-06] VITALS (8 sets, daily range): BP systolic 105–139; BP diastolic 66–83; PULSE 60–67; RESP 13–24; TEMP 36.8; O2SAT 95–99
--- NOTE | 2021-05-06 14:17 | DI.RAD.S_ITS ---
PROCEDURE: PAIN L INTERLAMINAR/CAUDAL INJ INDICATIONS: SPONDYLOSIS COMPARISON: None. FINDINGS: Fluoroscopic spot filming was performed to verify placement of spinal needles at the posterior midline T5-6 level(s), as labeled on the films. Appropriate location(s) of the needle tip(s) was confirmed by injection of iodinated contrast. IMPRESSION: Successful T5-6 translaminar epidural steroid injection. Dictated by: Dex Jason M.D. on 05/06/2021 at 16:50 Approved by: Dex Jason M.D. on 05/06/2021 at 16:50
[2021-05-06] MEDS: fentaNYL 100 MCG/2 ML INJ 50 MCG IV (15:15)
[2021-05-06] MEDS: IOPAMIDOL 15 ML VIAL 3 ML INJ (15:18)
[2021-05-06] MEDS: BETAMETHASONE 30 MG/5 ML MDV 6 MG INJ (15:20)
[2021-05-06] MEDS: BUPIVACAINE 0.25% (PF) VIAL 2 ML INJ (15:20)
[2021-05-06] MEDS: MIDAZOLAM 5 MG/5 ML VIAL IV (15:21)
[2021-05-06] MEDS: DEXAMETHASONE 10 MG/ML VIAL 20 MG INJ (15:21)
--- NOTE | 2021-05-06 15:21 | PM.PROC.IR.1 ---
Date/Time/Diagnoses Date of procedure: 05/06/21 Time of procedure: 15:21 Pre-procedure diagnosis: 1. HNP WITH RADICULAR FEATURES, 2. MULTILEVEL CENTRAL STENOSIS, Post-procedure diagnosis: same Procedure Notes Procedure: 1. FLUOROSCOPICALLY GUIDED CONTRAST CONTROLLED INTERLAMINAR EPIDURAL STEROID INJECTION - L5/S1 Indications: Alvaro is referred by Dr. Meier for treatment of Bilateral Foraminal Stenosis L>R LE symptoms. Physician: Som Fierro Total Fluoroscopy time (seconds): 6 Total sedation minutes: 4 Complications: none Procedure in detail & Post-procedure care: FINDINGS Multilevel Central Spinal Stenosis with Nerve Root Compression DESCRIPTION OF PROCEDURE Fluoroscopically guided, contrast-controlled L5/L6 translaminar epidural steroid injection. Following review of allergy and review of potential side effects and complications, including, but not necessarily limited to, infection, allergic reaction, local tissue breakdown, temporary as well as permanent nerve injury, paralysis, stroke and possible , the patient indicated that the patient understood and agreed to proceed. An informed consent document was signed by the patient, witnessed by a nurse, and placed in the patient's chart. Additionally, other treatment options including modalities, medications, and physical therapy were reviewed with the patient. After review of previous anaesthesic history and IV conscious sedation the patient was deemed safe to proceed with today?s procedure with IV conscious sedation as ASA class II designation. Safety time-out was performed to confirm patient ID, procedure to be performed and site of procedure. IV sedation was accomplished with a combination of 4mg of Versed and 50mcg of Fentanyl administered by the RN after DO order, titrated to patient comfort during the course of the procedure while the patient remained responsive to all verbal commands. In the prone position, following sterile prep and drape of the lumbar region, the L5/L6 translaminar space was identified fluoroscopically. The skin was anesthetized via a 25-gauge, 1.5-inch needle with 1% lidocaine solution. At this point, a 22-gauge short bevel spinal needle was atraumatically introduced and advanced under fluoroscopic guidance into the region of the L5/L6 translaminar space. Depth was confirmed on lateral view. Radiological data, including multiple fluoroscopic views of the lumbar spine, reveal a spinal needle at the L5/L6 translaminar space. Lateral views then show placement of the needle in the epidural space. Subsequent views show contrast material flowing superiorly and inferiorly in the epidural space. No vascular or intrathecal uptake is observed. At this point, using loss of resistance technique with saline and air, the epidural space was entered. This was confirmed following negative aspiration with injection of approximately 1.5cc of Isovue 200, showing excellent epidural flow without vascular or intrathecal uptake. At this point, 1 cc of 1% lidocaine solution combined with 3cc or 20mg of dexamethasone and 6mg of betamethasone was injected without incident. The patent tolerated the procedure without signs of symptoms of complications prior to transfer to the recovery area for further monitoring. The patient was then transferred to the recovery area where they were observed for an appropriate period of time after the injection. The patient reported a VAS score of 6 prior to the procedure and a post-procedure VAS of 0. POST OP INSTRUCTIONS The patient was provided a Pain Log to continue to record their response to the target-specific procedure prior to follow-up visit with their referring physician. Additionally, specific post-injection care instructions and a contact number to our office were provided if concerns arise regarding possible complications associated with the procedure are suspected.
== END 2021-05-06 15:47 | disposition home or self-care (01) ==
PROVIDERS: PCP Family Medicine; Referring Provider Physical Medicine & Rehabilitation; Visit Provider Physical Medicine & Rehabilitation
DX: M51.17 Intervertebral disc disorders with radiculopathy, lumbosacral region (principal); M48.07 Spinal stenosis, lumbosacral region
CPT/HCPCS: 62323; J0702; J1100; J2250; J3010

== ENCOUNTER → 2021-09-02 12:45 | Outpatient (CLI) | payer OTHER, MEDICAID, SELFPAY ==
--- NOTE | 2021-09-02 12:54 | DI.MRI.S_ITS ---
PROCEDURE: MR LUMBAR SPINE WO CON INDICATIONS: Progressive localized pain with right lower radicular sympto TECHNIQUE: Noncontrast sagittal T1 spin echo and T2 fast echo, sagittal STIR, axial T1 and T2 fast spin echo through the lumbar spine. In cases with scoliosis, additional coronal T2 fast spin echo may be performed. COMPARISON: [facility], CT, CT LUMBAR SPINE WO CON, 06/08/2020, 10:42. [facility], CR, XR LUMBAR SPINE 2-3V, 02/19/2020, 15:14. [facility], MR, MR LUMBAR SPINE WO CON, 07/25/2020, 8:23. FINDINGS: Image quality: Excellent. Alignment and Curvature: The same numbering system which was used on the prior lumbar spine CT will be used on the current examination, with 6 non rib-bearing lumbar type vertebral bodies, as denoted on the montage panel of the current examination.. Bone Marrow: Marrow is of normal overall signal. No acute vertebral body compression fractures. Mild reactive signal throughout the endplates of the lumbar spine. Mild degenerative marrow edema adjacent to the L5-S1 facet joints. Spinal Cord: Conus medullaris terminates at the lower L2 level. Visualized cord demonstrates normal signal and size. Paraspinous Soft Tissues: No paravertebral masses. Moderate T2 signal elevation within the soft tissues adjacent to the L5-S1 facet joints. T12-L1: Normal appearance. L1-L2: Mild disc height loss and desiccation. Mild diffuse disc bulge. Mild bilateral facet hypertrophy. Mild canal stenosis. Mild bilateral foraminal stenosis. L2-L3: Mild disc desiccation and diffuse disc bulge. Mild epidural lipomatosis. Mild canal stenosis. Mild bilateral foraminal stenosis. L3-L4: Mild disc desiccation and diffuse disc bulge. Mild bilateral facet hypertrophy. Mild canal stenosis. Mild bilateral foraminal stenosis. L4-L5: Mild disc height loss and desiccation. Mild diffuse disc bulge. Mild facet and ligamentum flavum hypertrophy. Mild epidural lipomatosis. Mild canal stenosis. Moderate bilateral foraminal stenosis. L5-L6: Mild disc height loss and desiccation. Mild diffuse disc bulge. Mild facet and ligamentum flavum hypertrophy. Mild epidural lipomatosis. Severe canal stenosis. Moderate subarticular foraminal stenosis bilaterally. L6-S1: Mild bilateral facet hypertrophy. No significant canal, or foraminal stenosis. IMPRESSION: 1. Multilevel degenerative disc and facet disease, as well as ligamentum flavum hypertrophy and epidural lipomatosis. 2. Multilevel canal stenoses, worst at L5-L6 where there is severe canal stenosis. 3. Multilevel foraminal stenoses, worst at L4-L5 and L5-S1, where there are moderate foraminal stenosis present. 4. Atypical numbering system with 6 lumbar type vertebral bodies. Recommend correlation with plain films as well as the montage panel of the current examination for numbering purposes, prior to any lumbar spinal intervention. Dictated by: Isidro Patel M.D. on 09/02/2021 at 16:10 Approved by: Isidro Patel M.D. on 09/02/2021 at 16:15
== END ==
PROVIDERS: PCP Family Medicine; Referring Provider Family Medicine; Visit Provider Family Medicine
DX: M51.16 Intervertebral disc disorders with radiculopathy, lumbar region (principal); M51.17 Intervertebral disc disorders with radiculopathy, lumbosacral region; M48.061 Spinal stenosis, lumbar region without neurogenic claudication; M48.07 Spinal stenosis, lumbosacral region
CPT/HCPCS: 72148

== ENCOUNTER → 2021-11-26 07:52 | Outpatient (CLI) | payer OTHER, MEDICAID, SELFPAY ==
[2021-11-26 08:26] LABS: Add Manual Diff / Slide Review NO; Basophils Absolute Auto 100 /uL (0-100); Basophils Percent Auto 0.6 % (0-2); Eosinophils Absolute Auto 300 /uL (0-450); Eosinophils Percent Auto 2.5 % (2-4); Hematocrit 43.5 % (41-53); Hemoglobin 14.7 g/dL (13.5-17.5); Lymphocytes Absolute Auto 2200 /uL (1100-4500); Lymphocytes Percent Auto 17.6 % (25-40); Mean Corpuscular HGB Conc 33.8 % (30-36); Mean Corpuscular Hemoglobin 32.1 PG (26-34); Mean Corpuscular Volume 94.9 fL (80-100); Monocytes Absolute Auto 1000 /uL (0-900); Neutrophils Absolute Auto 9100 /uL (1500-7000); Neutrophils Percent Auto 71.3 % (50-75); Platelet Count 272 X10^3/uL (150-400); Red Blood Cell Count 4.58 X10^6/uL (4.5-5.9); Red Cell Distribution Width 13.6 % (11.6-14.8); White Blood Cell Count 12.7 X10^3/uL (4.5-11.0)
[2021-11-26 08:49] LABS: Alanine Aminotransferase 22 IU/L (<50); Albumin 4.4 g/dL (3.5-5.0); Albumin Globulin Ratio 1.8 (1.0-2.8); Alkaline Phosphatase 68 U/L (38-126); Aspartate Aminotransferase 33 IU/L (17-59); BUN Creatinine Ratio 14.3 (6-22); Bilirubin Total 0.5 mg/dL (0.2-1.3); Blood Urea Nitrogen 13 mg/dL (9-20); Calcium 9.5 mg/dL (8.4-10.2); Carbon Dioxide 31 mmol/L (22-32); Chloride 103 mmol/L (98-107); Cholesterol 194 mg/dL (140-199); Estimated Glomerular Filt Rate > 60.0 mL/min (>60); Globulin 2.5 g/dL (1.7-4.1); Glucose 119 mg/dL (70-100); HDL Cholesterol 42 mg/dL (40-60); HEMOLYSIS < 15 (0-50); LDL Cholesterol Calculated 123 mg/dL (<100); Potassium 4.3 mmol/L (3.4-5.1); Sodium 140 mmol/L (137-145); Total Protein 6.9 g/dL (6.3-8.2); Triglycerides 145 mg/dL (35-150)
== END ==
PROVIDERS: PCP Family Medicine; Referring Provider Family Medicine; Visit Provider Family Medicine
DX: Z01.818 Encounter for other preprocedural examination (principal); K57.90 Diverticulosis of intestine, part unspecified, without perforation or abscess without bleeding; E78.2 Mixed hyperlipidemia; R73.03 Prediabetes; Z72.820 Sleep deprivation
CPT/HCPCS: 36415; 80053; 80061; 85025; 93005; 93010

== ENCOUNTER → 2022-08-18 10:26 | Outpatient (CLI) | payer OTHER, MEDICAID, SELFPAY ==
[2022-08-18 11:35] LABS: Add Manual Diff / Slide Review NO; Basophils Absolute Auto 100 /uL (0-100); Basophils Percent Auto 0.6 % (0-2); Eosinophils Absolute Auto 400 /uL (0-450); Eosinophils Percent Auto 3.8 % (2-4); Hemoglobin 14.3 g/dL (13.5-17.5); Lymphocytes Absolute Auto 2300 /uL (1100-4500); Lymphocytes Percent Auto 20.3 % (25-40); Mean Corpuscular HGB Conc 33.3 % (30-36); Mean Corpuscular Hemoglobin 32.1 PG (26-34); Mean Corpuscular Volume 96.5 fL (80-100); Monocytes Absolute Auto 1000 /uL (0-900); Monocytes Percent Auto 8.6 % (3-14); Neutrophils Absolute Auto 7700 /uL (1500-7000); Neutrophils Percent Auto 66.7 % (50-75); Platelet Count 283 X10^3/uL (150-400); Red Blood Cell Count 4.46 X10^6/uL (4.5-5.9); Red Cell Distribution Width 13.5 % (11.6-14.8); White Blood Cell Count 11.5 X10^3/uL (4.5-11.0)
[2022-08-18 11:38] LABS: Alanine Aminotransferase 25 IU/L (<50); Albumin 4.3 g/dL (3.5-5.0); Alkaline Phosphatase 64 U/L (38-126); Aspartate Aminotransferase 36 IU/L (17-59); BUN Creatinine Ratio 18.7 (6-22); Bilirubin Total 0.5 mg/dL (0.2-1.3); Blood Urea Nitrogen 17 mg/dL (9-20); Calcium 9.2 mg/dL (8.4-10.2); Carbon Dioxide 29 mmol/L (22-32); Chloride 104 mmol/L (98-107); Estimated Glomerular Filt Rate > 60 mL/min (>60); Glucose 110 mg/dL (70-100); Sodium 139 mmol/L (137-145); Total Protein 7.5 g/dL (6.3-8.2)
[2022-08-18 11:39] LABS: Albumin Globulin Ratio 1.3 (1.0-2.8); Globulin 3.2 g/dL (1.7-4.1); HEMOLYSIS < 15 (0-50)
== END ==
PROVIDERS: PCP Family Medicine; Referring Provider Family Medicine; Visit Provider Family Medicine
DX: Z01.810 Encounter for preprocedural cardiovascular examination (principal)
CPT/HCPCS: 36415; 80053; 85025

== ENCOUNTER 2023-07-18 13:30 | Outpatient (RCR) | payer OTHER, MEDICAID, SELFPAY ==
--- NOTE | 2023-06-06 11:42 | PT.OIE ---
Current Diagnoses Other chronic pain (06/06/23) Acute bronchitis, unspecified (06/06/23) Pain in left knee (06/06/23) Spondylosis without myelopathy or radiculopathy, lumbar region (06/06/23) Spinal stenosis, lumbar region with neurogenic claudication (06/06/23) Radiculopathy, lumbar region (06/06/23) Pain in right leg (06/06/23) Crossing vessel and stricture of ureter without hydronephrosis (06/06/23) Past Medical History (Last Reviewed 05/16/23 @ 16:56 by Seferino Meier DO) Acute bronchitis Adrenal nodule Chronic pain Chronic pain of right lower extremity Compartment syndrome Conjunctivitis Depression Diverticulosis Facet arthropathy, lumbar History of diverticulitis Hypertension Hypertension Insomnia Leg pain, right Liver nodule Low back pain Lumbar radiculopathy Lumbar stenosis Memory loss Pre-operative cardiovascular examination Ureteropelvic junction (UPJ) obstruction Past Surgical History (Last Reviewed 05/16/23 @ 16:56 by Seferino Meier DO) Status post decompression of compartment syndrome Visit Care Team Role Provider Type Seferino Meier DO Attending Provider Physician Family Provider Primary Care Provider Referring Provider Specialty: [facility] Address: [address] [place] [address], [facility] Email: [email or web address] Physical Therapy Initial Evaluation PT-OP-A Visit Information Start: 06/06/23 08:13 Freq: Status: Active Protocol: Document 06/06/23 08:14 ED (Rec: 06/06/23 09:01 ED [id number]) Out-Patient Physical Therapy Visit Information Visit Information Visit Type Initial Evaluation Visit Note 11/15 Visit Start Time 08:15 Visit Stop Time 09:00 Total Visit Minutes 45 Visit Number 1 Evaluation Information Evaluation Date 06/06/23 PT-OP-B Current Condition Start: 06/06/23 08:13 Freq: Status: Active Protocol: Document 06/06/23 08:14 ED (Rec: 06/06/23 09:01 ED [id number]) Current Condition History of Current Condition Current Complaints low back pain History of Current Condition Pt states that he has been having debilitating low back pain for years. He had a revision surgery for his low back about 8 months ago. Pt states that he needs to do 6 weeks of PT before he can get an injection for his back which is what he wants. In regards to discomfort, he notes that his legs and low back hurts. He notes that he is limited in his ability to do anything for long periods of time to maybe 15 minutes. He reports doing some yoga- like exercises at home such as leg lifts. He states he has resistance bands and handweights at home. PT-OP-C Subjective Start: 06/06/23 08:13 Freq: Status: Active Protocol: Document 06/06/23 08:14 ED (Rec: 06/06/23 11:41 ED [id number]) OP-PT Subjective Patient Comments Patient Comments Pt notes how frustrated he is by back pain. States that he used to be able to do a lot of things and never thought he'd be the type of person who needs repeat back surgeries and can't do all his normal daily activities. Patient Questionnaires Lower Extremity Functional Scale LEFS Score 23 LEFS Impairment 60 to 79% Impaired (Score 17- 31) Oswestry Low Back Index Oswestry Score 31/50 Oswestry Impairment 60 to 79% Impaired (Score 60- 79) OP-PT Pain Assessment Location low back Pain Location Details central low back Intensity 3 PT-OP-K Range of Motion Start: 06/06/23 08:13 Freq: Status: Active Protocol: Document 06/06/23 08:14 ED (Rec: 06/06/23 11:41 ED [id number]) Lumbar Spine Range of Motion Lumbar Spine Active Testing Position Standing Flexion 60 PT-OP-T Assessment and Plan Start: 06/06/23 08:13 Freq: Status: Active Protocol: Document 06/06/23 08:14 ED (Rec: 06/06/23 11:41 ED [id number]) Physical Therapy Assessment Rehab Potential Rehabilitation Potential Fair Evaluation Complexity Number of Personal Factors/Comorbidities 3 or More Number of Body Systems Impaired 3 Clinical Presentation at Evaluation Stable Impairments Impairments Activity Tolerance,Balance, Functional Activities, Functional Mobility,Gait,Pain, ROM,Sensation,Strength Goals Three Impairment lifting Short Term Goal (STG) Pt will be able to lift 10# from the ground for 10 repetitions c/ pain <3/10. STG Duration 3 weeks Longterm Goal (LTG) Pt will be able to lift 20# from the ground for 10 repetitions c/ pain <3/10. LTG Duration 6 weeks Two Impairment activity tolerance Short Term Goal (STG) Pt will report being able to perform functional daily activities for 15 minutes c/ pain <3/10. STG Duration 3 weeks [place] Goal (LTG) Pt will report being able to perform functional daily activities for 30 minutes c/ pain <3/10. LTG Duration 6 weeks One Impairment HEP Short Term Goal (STG) Pt will report performing HEP 4-5 days/week. STG Duration 2 weeks [place] Goal (LTG) Pt will report performing HEP 4-5 days/week LTG Duration 6 weeks Assessment Summary Assessment Pt reported to PT c/ complaints of chronic low back pain that is becoming severely activity limiting. Pt voiced frustration of his situation at length during PT evaluation. Pt demonstrated reduced ROM, strength, and activity tolerance secondary to his low back pain. PT and patient discussed PT POC and gradual progression of exercises as patient becomes more able to perform work. PT provided initial HEP of: short walks, supported lumbar flexion in sitting position, standing sidebends, sit<> stands, and lumbar extension in which he was able to do comfortably today. Physical Therapy Plan Therapeutic Interventions Therapeutic Interventions Balance Training,Gait Training ,Home Exercise Program,Joint Mobilizations,Manual Therapy, Neuromuscular Re-education, Patient/Caregiver Education, Therapeutic Activities, Therapeutic Exercises Modalities Biofeedback,Cold Pack/Ice Massage,Electric Stimulation, Hot Packs Next Visit Focus/Plan Next Note Type Treatment Note Next Visit Plan walk/bike/NS, HEP (lumbar flexion, lumbar extension ( standing/prone), sit<>stands, side bends)
--- NOTE | 2023-06-06 11:43 | PT.OPPOC ---
Physical, Occupational & Speech Therapy At [facility] Current Diagnoses Other chronic pain (06/06/23) Acute bronchitis, unspecified (06/06/23) Pain in left knee (06/06/23) Spondylosis without myelopathy or radiculopathy, lumbar region (06/06/23) Spinal stenosis, lumbar region with neurogenic claudication (06/06/23) Radiculopathy, lumbar region (06/06/23) Pain in right leg (06/06/23) Crossing vessel and stricture of ureter without hydronephrosis (06/06/23) Visit Care Team Role Provider Type Seferino Meier DO Attending Provider Physician Family Provider Primary Care Provider Referring Provider Specialty: Family Practice Address: [address] [place] [address], [facility] Email: [email or web address] Plan Of Care PT-OP-T Assessment and Plan Start: 06/06/23 08:13 Freq: Status: Active Protocol: Document 06/06/23 08:14 ED (Rec: 06/06/23 11:41 ED [id number]) Physical Therapy Assessment Rehab Potential Rehabilitation Potential Fair Evaluation Complexity Number of Personal Factors/Comorbidities 3 or More Number of Body Systems Impaired 3 Clinical Presentation at Evaluation Stable Impairments Impairments Activity Tolerance,Balance, Functional Activities, Functional Mobility,Gait,Pain, ROM,Sensation,Strength Goals Three Impairment lifting Short Term Goal (STG) Pt will be able to lift 10# from the ground for 10 repetitions c/ pain <3/10. STG Duration 3 weeks Senior Living Goal (LTG) Pt will be able to lift 20# from the ground for 10 repetitions c/ pain <3/10. LTG Duration 6 weeks Two Impairment activity tolerance Short Term Goal (STG) Pt will report being able to perform functional daily activities for 15 minutes c/ pain <3/10. STG Duration 3 weeks Senior Living Goal (LTG) Pt will report being able to perform functional daily activities for 30 minutes c/ pain <3/10. LTG Duration 6 weeks One Impairment HEP Short Term Goal (STG) Pt will report performing HEP 4-5 days/week. STG Duration 2 weeks Patient Financial Advocate Goal (LTG) Pt will report performing HEP 4-5 days/week LTG Duration 6 weeks Assessment Summary Assessment Pt reported to PT c/ complaints of chronic low back pain that is becoming severely activity limiting. Pt voiced frustration of his situation at length during PT evaluation. Pt demonstrated reduced ROM, strength, and activity tolerance secondary to his low back pain. PT and patient discussed PT POC and gradual progression of exercises as patient becomes more able to perform work. PT provided initial HEP of: short walks, supported lumbar flexion in sitting position, standing sidebends, sit<> stands, and lumbar extension in which he was able to do comfortably today. Physical Therapy Plan Therapeutic Interventions Therapeutic Interventions Balance Training,Gait Training ,Home Exercise Program,Joint Mobilizations,Manual Therapy, Neuromuscular Re-education, Patient/Caregiver Education, Therapeutic Activities, Therapeutic Exercises Modalities Biofeedback,Cold Pack/Ice Massage,Electric Stimulation, Hot Packs Next Visit Focus/Plan Next Note Type Treatment Note Next Visit Plan walk/bike/NS, HEP (lumbar flexion, lumbar extension ( standing/prone), sit<>stands, side bends) Plan of Care Dates Plan of Care Start Date 06/06/23 Plan of Care End Date 09/04/23 Electronically Signed by: Darci Wilks, PT 06/06/23 8805 If you are in agreement with this Plan of Care, please return a signed and dated copy. I have reviewed this Plan of Care and certify that the skilled therapy services above are required to meet the patient?s needs. Physician Signature Date Printed Name and Credentials Clinical Instructor Signature Printed Name and Credentials
--- NOTE | 2023-06-14 08:52 | PT.OTN ---
Current Diagnoses Other chronic pain (06/14/23) Acute bronchitis, unspecified (06/14/23) Pain in left knee (06/14/23) Spondylosis without myelopathy or radiculopathy, lumbar region (06/14/23) Spinal stenosis, lumbar region with neurogenic claudication (06/14/23) Radiculopathy, lumbar region (06/14/23) Pain in right leg (06/14/23) Crossing vessel and stricture of ureter without hydronephrosis (06/14/23) Physical Therapy Treatment Note PT-OP-A Visit Information Start: 06/06/23 08:13 Freq: Status: Active Protocol: Document 06/14/23 08:47 ED (Rec: 06/14/23 08:52 ED [id number]) Out-Patient Physical Therapy Visit Information Visit Information Visit Type Treatment Note Visit Note 12/16 Visit Start Time 08:15 Visit Stop Time 08:50 Total Visit Minutes 35 Visit Number 2 PT-OP-B Current Condition Start: 06/06/23 08:13 Freq: Status: Active Protocol: Document 06/06/23 08:14 ED (Rec: 06/06/23 09:01 ED [id number]) Current Condition History of Current Condition Current Complaints low back pain History of Current Condition Pt states that he has been having debilitating low back pain for years. He had a revision surgery for his low back about 8 months ago. Pt states that he needs to do 6 weeks of PT before he can get an injection for his back which is what he wants. In regards to discomfort, he notes that his legs and low back hurts. He notes that he is limited in his ability to do anything for long periods of time to maybe 15 minutes. He reports doing some yoga- like exercises at home such as leg lifts. He states he has resistance bands and handweights at home. PT-OP-C Subjective Start: 06/06/23 08:13 Freq: Status: Active Protocol: Document 06/14/23 08:47 ED (Rec: 06/14/23 08:52 ED [id number]) OP-PT Subjective Patient Comments Patient Comments Pt states he is having a bad morning in regards to his low back pain and R leg pain. Notes he did his HEP a few times; had difficulty with the lateral trunk bends. PT-OP-K Range of Motion Start: 06/06/23 08:13 Freq: Status: Active Protocol: Document 06/06/23 08:14 ED (Rec: 06/06/23 11:41 ED [id number]) Lumbar Spine Range of Motion Lumbar Spine Active Testing Position Standing Flexion 60 PT-OP-Q Treatments Start: 06/06/23 08:13 Freq: Status: Active Protocol: Document 06/14/23 08:47 ED (Rec: 06/14/23 08:52 ED [id number]) Cardio Equipment Treadmill Duration (Minutes) 5 Speed 1.5 Incline 1 Other 5' at beginning and at end Therapeutic Exercises Prone Exercises press up Reps/Minutes 3x10 Sitting Exercises lumbar flexion Sitting Exercise Name PB supported flexion Equipment Used PB Reps/Minutes 4a80-45 row Resistance L1 Reps/Minutes 2m01-20 Therapeutic Activity Therapeutic Activity squat Name STS Reps/Minutes 1x10 Comments foam pad + chair hugging ball to reduce UE assistance PT-OP-T Assessment and Plan Start: 06/06/23 08:13 Freq: Status: Active Protocol: Document 06/14/23 08:47 ED (Rec: 06/14/23 08:52 ED [id number]) Physical Therapy Assessment Assessment Summary Assessment Pt very limited in activity tolerance d/t low back pain, R leg pain, and interphalengeal joint pain. PT elected to have patient only perform 3-4 basic movements in circuit fashion which included seated lumbar flexion using physioball, prone press ups, and seated rows. Pt had most discomfort during prone press ups. Informed patient that PT will reduce overall variety of exercises so his body can respond to those over time. Physical Therapy Plan Frequency and Duration Frequency of Treatment 1-2x/week Duration of treatment (weeks) 10 Plan of Care Start Date 06/06/23 Plan of Care End Date 09/04/23 Next Visit Focus/Plan Next Note Type Treatment Note Next Visit Plan repeat: 5' TM, PB roll > press up > seated row, sit<>stand, TM HEP (lumbar flexion, lumbar extension (standing/prone), sit<>stands, side bends)
--- NOTE | 2023-06-21 13:22 | PT.OTN ---
Current Diagnoses Other chronic pain (06/21/23) Acute bronchitis, unspecified (06/21/23) Pain in left knee (06/21/23) Spondylosis without myelopathy or radiculopathy, lumbar region (06/21/23) Spinal stenosis, lumbar region with neurogenic claudication (06/21/23) Radiculopathy, lumbar region (06/21/23) Pain in right leg (06/21/23) Crossing vessel and stricture of ureter without hydronephrosis (06/21/23) Physical Therapy Treatment Note PT-OP-A Visit Information Start: 06/06/23 08:13 Freq: Status: Active Protocol: Document 06/21/23 13:18 ED (Rec: 06/21/23 13:22 ED [id number]) Out-Patient Physical Therapy Visit Information Visit Information Visit Type Treatment Note Visit Note 01/13 Visit Start Time 12:45 Visit Stop Time 13:20 Total Visit Minutes 35 Visit Number 3 PT-OP-B Current Condition Start: 06/06/23 08:13 Freq: Status: Active Protocol: Document 06/06/23 08:14 ED (Rec: 06/06/23 09:01 ED [id number]) Current Condition History of Current Condition Current Complaints low back pain History of Current Condition Pt states that he has been having debilitating low back pain for years. He had a revision surgery for his low back about 8 months ago. Pt states that he needs to do 6 weeks of PT before he can get an injection for his back which is what he wants. In regards to discomfort, he notes that his legs and low back hurts. He notes that he is limited in his ability to do anything for long periods of time to maybe 15 minutes. He reports doing some yoga- like exercises at home such as leg lifts. He states he has resistance bands and handweights at home. PT-OP-C Subjective Start: 06/06/23 08:13 Freq: Status: Active Protocol: Document 06/21/23 13:18 ED (Rec: 06/21/23 13:22 ED [id number]) OP-PT Subjective Patient Comments Patient Comments Pt states that both of his feet and hands are numb today in addition to his back pain. PT-OP-K Range of Motion Start: 06/06/23 08:13 Freq: Status: Active Protocol: Document 06/06/23 08:14 ED (Rec: 06/06/23 11:41 ED [id number]) Lumbar Spine Range of Motion Lumbar Spine Active Testing Position Standing Flexion 60 PT-OP-Q Treatments Start: 06/06/23 08:13 Freq: Status: Active Protocol: Document 06/21/23 13:18 ED (Rec: 06/21/23 13:22 ED [id number]) Cardio Equipment Treadmill Duration (Minutes) 5 Speed 1.5 Incline 1 Other 5' at beginning and at end Therapeutic Exercises Sitting Exercises lumbar flexion Sitting Exercise Name PB supported flexion Equipment Used PB Reps/Minutes 7t13-13 row Resistance L1 Reps/Minutes 0d44-72 Therapeutic Activity Therapeutic Activity squat Name STS Reps/Minutes 1x10 Comments foam pad + chair hugging ball to reduce UE assistance PT-OP-T Assessment and Plan Start: 06/06/23 08:13 Freq: Status: Active Protocol: Document 06/21/23 13:18 ED (Rec: 06/21/23 13:22 ED [id number]) Physical Therapy Assessment Goals Three Impairment lifting Short Term Goal (STG) Pt will be able to lift 10# from the ground for 10 repetitions c/ pain <3/10. STG Duration 3 weeks Solvent Process Extractor Operator Goal (LTG) Pt will be able to lift 20# from the ground for 10 repetitions c/ pain <3/10. LTG Duration 6 weeks Two Impairment activity tolerance Short Term Goal (STG) Pt will report being able to perform functional daily activities for 15 minutes c/ pain <3/10. STG Duration 3 weeks Solvent Process Extractor Operator Goal (LTG) Pt will report being able to perform functional daily activities for 30 minutes c/ pain <3/10. LTG Duration 6 weeks One Impairment HEP Short Term Goal (STG) Pt will report performing HEP 4-5 days/week. STG Duration 2 weeks Long-Term Goal (LTG) Pt will report performing HEP 4-5 days/week LTG Duration 6 weeks Assessment Summary Assessment Repeated previous PT session of basic fundamental movements circuit including ambulating on TM, sit<>stands, lumbar flexion, and seated rows. Pt unable to walk goal of 5 minutes on TM secondary to pain in back. Pt able to perform sit<>stands and lumbar flexion comfortably. He had some pain during seated rows. Discussed c/ patient having a visit c/ his PCP as he seems to be having paresthesia and possibly some sort of systemic disease. Physical Therapy Plan Next Visit Focus/Plan Next Note Type Treatment Note Next Visit Plan repeat: 4 rounds of 5' TM, PB roll > press up > seated row, sit<>stand, TM HEP (lumbar flexion, lumbar extension (standing/prone), sit<>stands, side bends)
--- NOTE | 2023-06-28 11:25 | PT.OTN ---
Current Diagnoses Other chronic pain (06/28/23) Acute bronchitis, unspecified (06/28/23) Pain in left knee (06/28/23) Spondylosis without myelopathy or radiculopathy, lumbar region (06/28/23) Spinal stenosis, lumbar region with neurogenic claudication (06/28/23) Radiculopathy, lumbar region (06/28/23) Pain in right leg (06/28/23) Crossing vessel and stricture of ureter without hydronephrosis (06/28/23) Physical Therapy Treatment Note PT-OP-A Visit Information Start: 06/06/23 08:13 Freq: Status: Active Protocol: Document 06/28/23 11:21 ED (Rec: 06/28/23 11:25 ED [id number]) Out-Patient Physical Therapy Visit Information Visit Information Visit Type Treatment Note Visit Note 02/13 Visit Start Time 10:45 Visit Stop Time 11:25 Total Visit Minutes 40 Visit Number 4 PT-OP-B Current Condition Start: 06/06/23 08:13 Freq: Status: Active Protocol: Document 06/06/23 08:14 ED (Rec: 06/06/23 09:01 ED [id number]) Current Condition History of Current Condition Current Complaints low back pain History of Current Condition Pt states that he has been having debilitating low back pain for years. He had a revision surgery for his low back about 8 months ago. Pt states that he needs to do 6 weeks of PT before he can get an injection for his back which is what he wants. In regards to discomfort, he notes that his legs and low back hurts. He notes that he is limited in his ability to do anything for long periods of time to maybe 15 minutes. He reports doing some yoga- like exercises at home such as leg lifts. He states he has resistance bands and handweights at home. PT-OP-C Subjective Start: 06/06/23 08:13 Freq: Status: Active Protocol: Document 06/28/23 11:21 ED (Rec: 06/28/23 11:25 ED [id number]) OP-PT Subjective Patient Comments Patient Comments Pt states that he got a new puppy and has only had about 1 hour of sleep in the past 2-3 days. States his feet are feeling better today than they did last week. In regards to his back he states there's something floating around back there and I know damn sure I' ll need surgery to fix it''. PT-OP-K Range of Motion Start: 06/06/23 08:13 Freq: Status: Active Protocol: Document 06/06/23 08:14 ED (Rec: 06/06/23 11:41 ED [id number]) Lumbar Spine Range of Motion Lumbar Spine Active Testing Position Standing Flexion 60 PT-OP-Q Treatments Start: 06/06/23 08:13 Freq: Status: Active Protocol: Document 06/28/23 11:21 ED (Rec: 06/28/23 11:25 ED [id number]) Cardio Equipment Treadmill Duration (Minutes) 5 Speed 1.5 Incline 1 Other throughout session; goal is for 5 consecutive minutes Therapeutic Exercises Sitting Exercises lumbar flexion Sitting Exercise Name PB supported flexion Equipment Used PB Reps/Minutes 1r75-12 row Resistance L2 Reps/Minutes 2z67-25 PT-OP-T Assessment and Plan Start: 06/06/23 08:13 Freq: Status: Active Protocol: Document 06/28/23 11:21 ED (Rec: 06/28/23 11:25 ED [id number]) Physical Therapy Assessment Goals Three Impairment lifting Short Term Goal (STG) Pt will be able to lift 10# from the ground for 10 repetitions c/ pain <3/10. STG Duration 3 weeks Engineering Project Designer Goal (LTG) Pt will be able to lift 20# from the ground for 10 repetitions c/ pain <3/10. LTG Duration 6 weeks Two Impairment activity tolerance Short Term Goal (STG) Pt will report being able to perform functional daily activities for 15 minutes c/ pain <3/10. STG Duration 3 weeks Engineering Project Designer Goal (LTG) Pt will report being able to perform functional daily activities for 30 minutes c/ pain <3/10. LTG Duration 6 weeks One Impairment HEP Short Term Goal (STG) Pt will report performing HEP 4-5 days/week. STG Duration 2 weeks Engineering Project Designer Goal (LTG) Pt will report performing HEP 4-5 days/week LTG Duration 6 weeks Assessment Summary Assessment PT progressed patient in overall exercise volume today. Pt has been performing a circuit of walking on the TM, lumbar flexion, rows, and sit< >stands. PT had patient perform 4 rounds today instead of 3. Pt unable to ambulate for 5 consecutive minutes secondary to either LBP or calf pain which is likely intermittent claudication. PT will try to have patient perform 5 rounds at next visit . Physical Therapy Plan Frequency and Duration Frequency of Treatment 1-2x/week Duration of treatment (weeks) 10 Plan of Care Start Date 06/06/23 Plan of Care End Date 09/04/23 Next Visit Focus/Plan Next Note Type Treatment Note Next Visit Plan repeat: 5 rounds of 5' TM, PB roll > press up > seated row, sit<>stand, TM HEP (lumbar flexion, lumbar extension (standing/prone), sit<>stands, side bends)
--- NOTE | 2023-07-05 11:44 | PT.OTN ---
Current Diagnoses Other chronic pain (07/05/23) Acute bronchitis, unspecified (07/05/23) Pain in left knee (07/05/23) Spondylosis without myelopathy or radiculopathy, lumbar region (07/05/23) Spinal stenosis, lumbar region with neurogenic claudication (07/05/23) Radiculopathy, lumbar region (07/05/23) Pain in right leg (07/05/23) Crossing vessel and stricture of ureter without hydronephrosis (07/05/23) Physical Therapy Treatment Note PT-OP-A Visit Information Start: 06/06/23 08:13 Freq: Status: Active Protocol: Document 07/05/23 11:41 ED (Rec: 07/05/23 11:44 ED [id number]) Out-Patient Physical Therapy Visit Information Visit Information Visit Type Treatment Note Visit Note 03/15 Visit Start Time 10:55 Visit Stop Time 11:40 Total Visit Minutes 45 Visit Number 5 PT-OP-B Current Condition Start: 06/06/23 08:13 Freq: Status: Active Protocol: Document 06/06/23 08:14 ED (Rec: 06/06/23 09:01 ED [id number]) Current Condition History of Current Condition Current Complaints low back pain History of Current Condition Pt states that he has been having debilitating low back pain for years. He had a revision surgery for his low back about 8 months ago. Pt states that he needs to do 6 weeks of PT before he can get an injection for his back which is what he wants. In regards to discomfort, he notes that his legs and low back hurts. He notes that he is limited in his ability to do anything for long periods of time to maybe 15 minutes. He reports doing some yoga- like exercises at home such as leg lifts. He states he has resistance bands and handweights at home. PT-OP-C Subjective Start: 06/06/23 08:13 Freq: Status: Active Protocol: Document 07/05/23 11:41 ED (Rec: 07/05/23 11:44 ED [id number]) OP-PT Subjective Patient Comments Patient Comments Pt states that he still has been having poor sleep since getting his puppy. His arms and legs feel better but still can get numb easily. PT-OP-K Range of Motion Start: 06/06/23 08:13 Freq: Status: Active Protocol: Document 06/06/23 08:14 ED (Rec: 06/06/23 11:41 ED [id number]) Lumbar Spine Range of Motion Lumbar Spine Active Testing Position Standing Flexion 60 PT-OP-Q Treatments Start: 06/06/23 08:13 Freq: Status: Active Protocol: Document 07/05/23 11:41 ED (Rec: 07/05/23 11:44 ED [id number]) Cardio Equipment Treadmill Duration (Minutes) 5 Speed 1.5 Incline 1 Other throughout session; goal is for 5 consecutive minutes Therapeutic Exercises Sitting Exercises lumbar flexion Sitting Exercise Name PB supported flexion Equipment Used PB Reps/Minutes 1s77-87 row Resistance L2 Reps/Minutes 2h12-92 Therapeutic Activity Therapeutic Activity squat Name STS Reps/Minutes 1x10 Comments foam pad + chair hugging ball to reduce UE assistance PT-OP-T Assessment and Plan Start: 06/06/23 08:13 Freq: Status: Active Protocol: Document 07/05/23 11:41 ED (Rec: 07/05/23 11:44 ED [id number]) Physical Therapy Assessment Goals Three Impairment lifting Short Term Goal (STG) Pt will be able to lift 10# from the ground for 10 repetitions c/ pain <3/10. STG Duration 3 weeks Mcc Goal (LTG) Pt will be able to lift 20# from the ground for 10 repetitions c/ pain <3/10. LTG Duration 6 weeks Two Impairment activity tolerance Short Term Goal (STG) Pt will report being able to perform functional daily activities for 15 minutes c/ pain <3/10. STG Duration 3 weeks Mcc Goal (LTG) Pt will report being able to perform functional daily activities for 30 minutes c/ pain <3/10. LTG Duration 6 weeks One Impairment HEP Short Term Goal (STG) Pt will report performing HEP 4-5 days/week. STG Duration 2 weeks Mcc Goal (LTG) Pt will report performing HEP 4-5 days/week LTG Duration 6 weeks Assessment Summary Assessment PT had patient patient perform same volume of work as last week. Pt has been performing a circuit of walking on the TM, lumbar flexion, rows, and sit <>stands. PT had patient perform 4 rounds today instead of 3. Pt unable to ambulate for 5 consecutive minutes secondary to either LBP or calf pain which is likely intermittent claudication. Pt able to ambulate for entirety of 5 minutes on 2 of the 4 sets today which is a good progression compared to previous visits. PT will try to have patient perform 5 rounds at next visit. Physical Therapy Plan Frequency and Duration Frequency of Treatment 1-2x/week Duration of treatment (weeks) 10 Plan of Care Start Date 06/06/23 Plan of Care End Date 09/04/23 Next Visit Focus/Plan Next Note Type Treatment Note Next Visit Plan repeat: 5 rounds of 5' TM, PB roll > press up > seated row, sit<>stand, TM HEP (lumbar flexion, lumbar extension (standing/prone), sit<>stands, side bends)
--- NOTE | 2023-07-13 10:44 | PT.OTN ---
Current Diagnoses Other chronic pain (07/13/23) Acute bronchitis, unspecified (07/13/23) Pain in left knee (07/13/23) Spondylosis without myelopathy or radiculopathy, lumbar region (07/13/23) Spinal stenosis, lumbar region with neurogenic claudication (07/13/23) Radiculopathy, lumbar region (07/13/23) Pain in right leg (07/13/23) Crossing vessel and stricture of ureter without hydronephrosis (07/13/23) Physical Therapy Treatment Note PT-OP-A Visit Information Start: 06/06/23 08:13 Freq: Status: Active Protocol: Document 07/13/23 10:39 ED (Rec: 07/13/23 10:44 ED [id number]) Out-Patient Physical Therapy Visit Information Visit Information Visit Type Treatment Note Visit Note 04/15 Visit Start Time 10:00 Visit Stop Time 10:40 Total Visit Minutes 40 Visit Number 6 PT-OP-B Current Condition Start: 06/06/23 08:13 Freq: Status: Active Protocol: Document 06/06/23 08:14 ED (Rec: 06/06/23 09:01 ED [id number]) Current Condition History of Current Condition Current Complaints low back pain History of Current Condition Pt states that he has been having debilitating low back pain for years. He had a revision surgery for his low back about 8 months ago. Pt states that he needs to do 6 weeks of PT before he can get an injection for his back which is what he wants. In regards to discomfort, he notes that his legs and low back hurts. He notes that he is limited in his ability to do anything for long periods of time to maybe 15 minutes. He reports doing some yoga- like exercises at home such as leg lifts. He states he has resistance bands and handweights at home. PT-OP-C Subjective Start: 06/06/23 08:13 Freq: Status: Active Protocol: Document 07/13/23 10:39 ED (Rec: 07/13/23 10:44 ED [id number]) OP-PT Subjective Patient Comments Patient Comments Pt states that his back continues to hurt along with his hands, feet, and legs. Pain is interrupting his sleep and overall quality of life. He states that after his 6th PT visit that he is able to get a steroid injection into his back. PT-OP-K Range of Motion Start: 06/06/23 08:13 Freq: Status: Active Protocol: Document 06/06/23 08:14 ED (Rec: 06/06/23 11:41 ED [id number]) Lumbar Spine Range of Motion Lumbar Spine Active Testing Position Standing Flexion 60 PT-OP-Q Treatments Start: 06/06/23 08:13 Freq: Status: Active Protocol: Document 07/13/23 10:39 ED (Rec: 07/13/23 10:44 ED [id number]) Cardio Equipment Treadmill Duration (Minutes) 5 Speed 1.5 Incline 1 Other 3 rounds: goal is for 5 consecutive minutes Therapeutic Exercises Sitting Exercises lumbar flexion Sitting Exercise Name PB supported flexion Equipment Used PB Reps/Minutes 6w37-36 row Resistance L2 Reps/Minutes 3k25-83 Therapeutic Activity Therapeutic Activity squat Name STS Reps/Minutes 3x10 Comments foam pad + chair hugging ball to reduce UE assistance PT-OP-T Assessment and Plan Start: 06/06/23 08:13 Freq: Status: Active Protocol: Document 07/13/23 10:39 ED (Rec: 07/13/23 10:44 ED [id number]) Physical Therapy Assessment Goals Three Impairment lifting Short Term Goal (STG) Pt will be able to lift 10# from the ground for 10 repetitions c/ pain <3/10. STG Duration 3 weeks Fpc Goal (LTG) Pt will be able to lift 20# from the ground for 10 repetitions c/ pain <3/10. LTG Duration 6 weeks Two Impairment activity tolerance Short Term Goal (STG) Pt will report being able to perform functional daily activities for 15 minutes c/ pain <3/10. STG Duration 3 weeks Tie Worker Goal (LTG) Pt will report being able to perform functional daily activities for 30 minutes c/ pain <3/10. LTG Duration 6 weeks One Impairment HEP Short Term Goal (STG) Pt will report performing HEP 4-5 days/week. STG Duration 2 weeks Fpc Goal (LTG) Pt will report performing HEP 4-5 days/week LTG Duration 6 weeks Assessment Summary Assessment Pt complained of headache today in addition to back pain and lower extremity pain. PT continued with the small circuit for patient to improve his tolerance to activity and functional movements including walking, STS, and rowing. Pt has shown progress in tolerance to walking but continues to be severely limited in mobility. Pt has 1 more visit until he reaches his 6 visits in which he was told he can get a steroid injection after. Physical Therapy Plan Frequency and Duration Frequency of Treatment 1-2x/week Duration of treatment (weeks) 10 Plan of Care Start Date 06/06/23 Plan of Care End Date 09/04/23 Next Visit Focus/Plan Next Note Type Treatment Note Next Visit Plan repeat: 5 rounds of 5' TM, PB roll > press up > seated row, sit<>stand, TM HEP (lumbar flexion, lumbar extension (standing/prone), sit<>stands, side bends)
--- NOTE | 2023-07-18 14:04 | PT.OPDS ---
Current Diagnoses Other chronic pain (07/18/23) Acute bronchitis, unspecified (07/18/23) Pain in left knee (07/18/23) Spondylosis without myelopathy or radiculopathy, lumbar region (07/18/23) Spinal stenosis, lumbar region with neurogenic claudication (07/18/23) Radiculopathy, lumbar region (07/18/23) Pain in right leg (07/18/23) Crossing vessel and stricture of ureter without hydronephrosis (07/18/23) Visit Care Team Role Provider Type Seferino Meier DO Attending Provider Physician Family Provider Primary Care Provider Referring Provider Specialty: [facility] Practice Address: [address] [place] [address], [facility] Email: [email or web address] Visit Number Visit Number 7 Discharge Summary PT-OP-B Current Condition Start: 06/06/23 08:13 Freq: Status: Active Protocol: Document 06/06/23 08:14 ED (Rec: 06/06/23 09:01 ED [id number]) Current Condition History of Current Condition Current Complaints low back pain History of Current Condition Pt states that he has been having debilitating low back pain for years. He had a revision surgery for his low back about 8 months ago. Pt states that he needs to do 6 weeks of PT before he can get an injection for his back which is what he wants. In regards to discomfort, he notes that his legs and low back hurts. He notes that he is limited in his ability to do anything for long periods of time to maybe 15 minutes. He reports doing some yoga- like exercises at home such as leg lifts. He states he has resistance bands and handweights at home. PT-OP-C Subjective Start: 06/06/23 08:13 Freq: Status: Active Protocol: Document 07/18/23 13:56 ED (Rec: 07/18/23 14:04 ED [id number]) OP-PT Subjective Patient Comments Patient Comments Pt states that his back has not felt any better during physical therapy. He thinks it 's ridiculous that he had to come to PT for 6 weeks before he got a steroid injection. He continues to report disturbed sleep, nearly constant pain, and inability to perform daily activities. Patient Questionnaires Oswestry Low Back Index Oswestry Score 32 / 50 = 64.0 % Oswestry Impairment 60 to 79% Impaired (Score 60- 79) PT-OP-K Range of Motion Start: 06/06/23 08:13 Freq: Status: Active Protocol: Document 06/06/23 08:14 ED (Rec: 06/06/23 11:41 ED [id number]) Lumbar Spine Range of Motion Lumbar Spine Active Testing Position Standing Flexion 60 PT-OP-T Assessment and Plan Start: 06/06/23 08:13 Freq: Status: Active Protocol: Document 07/18/23 13:56 ED (Rec: 07/18/23 14:04 ED [id number]) Physical Therapy Assessment Goals Three Impairment lifting Short Term Goal (STG) Pt will be able to lift 10# from the ground for 10 repetitions c/ pain <3/10. STG Duration 3 weeks -NOT MET Biomedical Manager Goal (LTG) Pt will be able to lift 20# from the ground for 10 repetitions c/ pain <3/10. LTG Duration 6 weeks - NOT MET Two Impairment activity tolerance Short Term Goal (STG) Pt will report being able to perform functional daily activities for 15 minutes c/ pain <3/10. STG Duration 3 weeks - NOT MET Fpc Goal (LTG) Pt will report being able to perform functional daily activities for 30 minutes c/ pain <3/10. LTG Duration 6 weeks - NOT MET One Impairment HEP Short Term Goal (STG) Pt will report performing HEP 4-5 days/week. STG Duration 2 weeks - NOT MET Fpc Goal (LTG) Pt will report performing HEP 4-5 days/week LTG Duration 6 weeks - NOT MET Progress Towards Goals Progress Towards Goals Slow Progress due to Activity Tolerance Progress Comments Minimal progress made towards goals. Pt had no change in back pain during 7 weeks of PT . Assessment Summary Assessment Pt will be discharged from physical therapy services at this time. Pt stated that he was reporting to PT for 6 weeks so he could get a steroid injection; now that he has finished his required PT he would like to pursue the injection. Pt made minimal progress during PT and continues to have severe and constant low back pain that limits his ability to perform daily activities, impairs his sleep, and is affecting his overall mood. PT focused on basic movements and had patient perform them in a circuit fashion; movements including ambulating on TM, repeated sit<>stands, repeated lumbar flexion in sitting, and seated rows. Pt did improve in walking tolerance as he became more consistent in ability to ambulate for 5' goal on treadmill but otherwise had no appreciable changes. Physical Therapy Plan Discharge Physical Therapy Discharge Reasons Patient Request Discharge Comments Pt wanted to complete 6 weeks of visits for steroid injection
== END 2023-07-28 09:04 ==
LOC: PHYS 13:30
PROVIDERS: Absent Provider Family Medicine; Family Provider Family Medicine; PCP Family Medicine; Referring Provider Family Medicine; Visit Provider Family Medicine
DX: M48.062 Spinal stenosis, lumbar region with neurogenic claudication (principal); M79.604 Pain in right leg; G89.29 Other chronic pain; N13.5 Crossing vessel and stricture of ureter without hydronephrosis; M54.16 Radiculopathy, lumbar region; M47.816 Spondylosis without myelopathy or radiculopathy, lumbar region; J20.9 Acute bronchitis, unspecified; M25.562 Pain in left knee
CPT/HCPCS: 97110; 97162; 97530

== ENCOUNTER → 2023-08-18 15:41 | Outpatient (CLI) | payer OTHER, MEDICAID, SELFPAY ==
--- NOTE | 2023-08-18 15:43 | DI.RAD.S_ITS ---
PROCEDURE: XR RIBS RT MIN 3V W CXR 1V INDICATIONS: post fall/injury TECHNIQUE: 2 views of the right ribs were acquired, along with a single view chest. COMPARISON: [facility], , XR CHEST 1V, 04/27/2021, 20:20. FINDINGS: Bones and chest wall: Possible acute minimally displaced fracture right anterolateral 8th rib. No suspicious bony lesions. Overlying soft tissues appear unremarkable. Lungs and pleura: No pleural effusions or pneumothorax. Lungs appear clear. Mediastinum: Mediastinal contours appear normal. Heart size is normal. IMPRESSION: Possible acute right anterolateral 8th rib fracture. No pneumothorax. Dictated by: Alvaro Cantrell M.D. on 08/18/2023 at 17:23 Approved by: Alvaro Cantrell M.D. on 08/18/2023 at 17:28
== END ==
PROVIDERS: Family Provider Family Medicine; PCP Family Medicine; Referring Provider Family Medicine; Visit Provider Family Medicine
DX: R07.81 Pleurodynia (principal); W19.XXXA Unspecified fall, initial encounter
CPT/HCPCS: 71101

== ENCOUNTER → 2024-01-23 08:45 | Outpatient (CLI) | payer OTHER, MEDICAID, SELFPAY ==
[2024-01-23 09:21] LABS: Add Manual Diff / Slide Review NO; Basophils Absolute Auto 100 /uL (0-100); Basophils Percent Auto 0.6 % (0-2); Eosinophils Absolute Auto 400 /uL (0-450); Eosinophils Percent Auto 2.8 % (2-4); Hematocrit 45.9 % (41-53); Hemoglobin 15.2 g/dL (13.5-17.5); Lymphocytes Absolute Auto 1900 /uL (1100-4500); Lymphocytes Percent Auto 14.5 % (25-40); Mean Corpuscular HGB Conc 33.1 % (30-36); Mean Corpuscular Hemoglobin 31.4 PG (26-34); Mean Corpuscular Volume 94.6 fL (80-100); Monocytes Absolute Auto 1200 /uL (0-900); Monocytes Percent Auto 9.4 % (3-14); Neutrophils Absolute Auto 9500 /uL (1500-7000); Neutrophils Percent Auto 72.7 % (50-75); Platelet Count 301 X10^3/uL (150-400); Red Blood Cell Count 4.85 X10^6/uL (4.5-5.9); Red Cell Distribution Width 13.2 % (11.6-14.8)
[2024-01-23 09:40] LABS: Alanine Aminotransferase 50 IU/L (<50); Albumin 4.6 g/dL (3.5-5.0); Albumin Globulin Ratio 1.4 (1.0-2.8); Alkaline Phosphatase 90 U/L (38-126); Aspartate Aminotransferase 47 IU/L (17-59); BUN Creatinine Ratio 13.3 (6-22); Bilirubin Total 0.7 mg/dL (0.2-1.3); Blood Urea Nitrogen 12 mg/dL (9-20); Calcium 9.9 mg/dL (8.4-10.2); Carbon Dioxide 28 mmol/L (22-32); Chloride 105 mmol/L (98-107); Cholesterol 214 mg/dL (140-199); Estimated Glomerular Filt Rate > 60 mL/min (>60); Globulin 3.4 g/dL (1.7-4.1); Glucose 142 mg/dL (70-100); HDL Cholesterol 43 mg/dL (40-60); HEMOLYSIS < 15 (0-50); LDL Cholesterol Calculated 142 mg/dL (<100); Potassium 4.5 mmol/L (3.4-5.1); Sodium 141 mmol/L (137-145); Triglycerides 147 mg/dL (35-150)
[2024-01-23 09:44] LABS: Hemoglobin A1C% w Est Avg Glu 6.3 % (4.0-6.0)
[2024-01-23 10:10] LABS: Prostate Specific Antigen 0.145 ng/mL (0.10-4.00); TSH w/ Reflex to FT4 1.32 uIU/mL (0.47-4.68)
== END ==
PROVIDERS: Family Provider Family Medicine; PCP Family Medicine; Referring Provider Family Medicine; Visit Provider Family Medicine
DX: N40.0 Benign prostatic hyperplasia without lower urinary tract symptoms (principal); M54.16 Radiculopathy, lumbar region; R73.03 Prediabetes; I10 Essential (primary) hypertension; E78.2 Mixed hyperlipidemia
CPT/HCPCS: 36415; 80053; 80061; 83036; 84153; 84443; 85025

== ENCOUNTER → 2024-04-02 13:14 | Outpatient (CLI) | payer OTHER, MEDICAID, SELFPAY ==
--- NOTE | 2024-04-02 13:16 | DI.CT.S_ITS ---
PROCEDURE: CT HEAD/BRAIN WO CON INDICATIONS: eval cognitive change TECHNIQUE: Noncontrast 4.5 mm thick angled axial sections acquired from the foramen magnum to the vertex, with coronal and sagittal reformats. For radiation dose reduction, the following was used: automated exposure control, adjustment of mA and/or kV according to patient size. COMPARISON: [facility], CT, CT HEAD/BRAIN WO CON, 06/13/2019, 12:09. FINDINGS: Image quality: Diagnostic. CSF spaces: Basal cisterns are patent. No extra-axial fluid collections. Ventricles are normal in size and shape. Brain: No midline shift. No intracranial masses or hemorrhage. [place]-white matter interface is normal. Skull and face: Calvarium and visualized facial bones are intact, without suspicious lesions. Sinuses: Visualized sinuses and mastoids are clear. IMPRESSION: Unremarkable CT brain. No change from the prior. Approved by: Darci Reza M.D. on 04/02/2024 at 21:42
== END ==
PROVIDERS: Family Provider Family Medicine; PCP Family Medicine; Referring Provider Family Medicine; Visit Provider Family Medicine
DX: R41.89 Other symptoms and signs involving cognitive functions and awareness (principal); R41.3 Other amnesia
CPT/HCPCS: 70450

== ENCOUNTER 2024-04-17 08:03 | Outpatient (CLI) | payer OTHER, MEDICAID, SELFPAY ==
[2024-04-17] VITALS (10 sets, daily range): BP systolic 115–194; BP diastolic 84–114; PULSE 81–97; RESP 10–17; TEMP 36.4; O2SAT 97–100
--- NOTE | 2024-04-17 08:30 | DI.RAD.S_ITS ---
PROCEDURE: PAIN SI JOINT INJECTION BROCK INDICATIONS: joint dysfunction COMPARISON: None. FINDINGS: Fluoroscopic spot filming was performed to verify placement of spinal needles at the bilateral sacroiliac joint level(s), as labeled on the films. Appropriate location(s) of the needle tip(s) was confirmed by injection of iodinated contrast. IMPRESSION: Fluoro guidance was provided intraoperatively for bilateral sacroiliac joint injection performed by ordering physician. Dictated by: Rodriguez Schilling M.D. on 04/17/2024 at 13:16 Approved by: Rodriguez Schilling M.D. on 04/17/2024 at 13:16
[2024-04-17] MEDS: MIDAZOLAM 2 MG/2 ML VIAL IV (08:49)
[2024-04-17] MEDS: DEXAMETHASONE 10 MG/ML VIAL 20 MG INJ (08:52)
[2024-04-17] MEDS: iopamidoL 15 ML VIAL 3 ML INJ (08:53)
[2024-04-17] MEDS: BUPIVACAINE 0.5% (PF) 10 ML VIAL 5 ML INJ (08:53)
--- NOTE | 2024-04-17 12:29 | P.PCN_ITS ---
Date/Time/Diagnoses Date of procedure: 04/17/24 Time of procedure: 08:30 Procedure Notes Physician: Brett De Santiago Total Fluoroscopy time (seconds): 14 Total sedation minutes: 10 Procedure in detail & Post-procedure care: Bilateral Sacroiliac Joint Injection Indications: Alvaro is presenting for treatment of SI joint dysfunction with low back/buttock pain. Preoperative diagnosis: Bilateral SI joint dysfunction Postoperative diagnosis: Same Focused Examination: Ax3 Mood and affect are normal Vital Signs: VSS ASA: 2 Consent: Following review of allergies and potential side effects/complications, including, but not necessarily limited to, infection, allergic reaction, local tissue breakdown, stroke, temporary or permanent nerve injury, paralysis, and possible , the patient indicated that they understood and agreed to proceed.? An informed consent document was signed by the patient, witnessed by a nurse and placed in the patient's chart.? Additionally, other treatment options including medications and physical therapy were reviewed with the patient. All questions were answered. Site was then marked. Anesthesia: After review of previous anesthetic history and IV conscious sedation, the patient was deemed safe to proceed with today's procedure with IV conscious sedation. IV sedation was accomplished with midazolam 2 mg administered by the RN after order by Dr. De Santiago. Sedation was titrated to patient comfort during the course of the procedure. Patient remained responsive to all verbal commands. Position: Prone Monitoring: NIBP, Pulse oximetry, 3 lead EKG Needle used: 22 ga, 3.5 inch spinal Contrast: 2 mL Isovue M-300 Injectate: Dexamethasone 7.5 mg with 1% lidocaine 2 mL per side Technique: The skin was prepped with chloraprep and then draped in a sterile fashion. Time out was performed as per protocol. Oxygen applied via NC. Skin and subcutaneous structures of the needle entry site was then infiltrated with 5 mL of lidocaine 1%. Under AP and lateral fluoroscopic control, the spinal needle was guided into the right sacroiliac joint. 1 mL contrast was injected and was consistent with intra-articular placement. There was no evidence for intravascular uptake. After negative aspiration, the above-mentioned injectate was then slowly administered and the needle withdrawn. The patient expressed no unusual discomfort or paresthesias during the injection. Skin and subcutaneous structures of the needle entry site was then infiltrated with 5 mL of lidocaine 1%. Under AP and lateral fluoroscopic control, the spinal needle was guided into the left sacroiliac joint. 1 mL contrast was injected and was consistent with intra-articular placement. There was no evidence for intravascular uptake. After negative aspiration, the above-mentioned injectate was then slowly administered and the needle withdrawn. The patient expressed no unusual discomfort or paresthesias during the injection.Band-Aids applied to injection sites. EBL: less than 1 ml Complications: None Post Procedure: Patient was taken to the recovery and monitored. The patient was provided a Pain Log to continue to record the patient's response to the target- specific procedure prior to the patient's follow-up visit with the referring physician. Patient was stable upon discharge. Detailed post procedure instructions were provided. Patient was asked to call in the event of worsening pain, fever, weakness, numbness or bladder or bowel incontinence.
== END 2024-04-17 09:24 | disposition home or self-care (01) ==
LOC: RAD 08:03
PROVIDERS: Family Provider Family Medicine; PCP Family Medicine; Referring Provider Anesthesiology; Visit Provider Anesthesiology
DX: M53.3 Sacrococcygeal disorders, not elsewhere classified (principal)
CPT/HCPCS: 27096; 99152; 99153; J1100; J2250

== ENCOUNTER 2025-07-13 18:27 | Emergency (ER) | payer SELFPAY ==
[2025-07-13] VITALS (10 sets, daily range): BP systolic 109–145; BP diastolic 58–89; PULSE 80–90; RESP 16–22; TEMP 36.9; O2SAT 94–97; BMI 31.1
[2025-07-13] MEDS: methylPREDNISolone succ 125 MG/2 ML VIAL IV (18:35)
[2025-07-13] MEDS: FAMOTIDINE 20 MG/2 ML VIAL IV (18:36)
[2025-07-13] MEDS: diphenhydrAMINE 50 MG/ML VIAL 25 MG IV (18:36)
[2025-07-13] MEDS: EPINEPHrine 1 MG/ML 0.5 MG IM (18:37)
--- NOTE | 2025-07-13 18:42 | ED.ALLEREA ---
HPI - Allergic Reaction General Chief complaint: Allergic Reaction Stated complaint: bee sting,allergic reaction Time Seen by Provider: 07/13/25 18:34 Source: patient Mode of arrival: Family Vehicle History of Present Illness HPI narrative: Patient is a 60-year-old male past medical history of hypertension, hyperlipidemia, comes into the ED from home for evaluation of swollen lip, he states that at around 5:30 p.m. patient was drinking a beer and got stung by a bee to his upper lip. Stating that she is having significant pain but no other complaints, states that he feels like his throat is itchy but denies any difficulty swallowing breathing. At time of initial evaluation patient is speaking full sentences protecting airway no voice changes no stridor no trismus, posterior oropharynx clear without any signs of obstruction uvula midline, patient was given IM epi immediately upon arrival. Related Data Home Medications ?Medication ?Instructions ?Recorded ?Confirmed omeprazole 20 mg capsule,delayed 20 mg PO DAILY 06/13/19 02/07/25 release acetaminophen [Tylenol] PO 05/05/21 02/07/25 Previous Rx's ?Medication ?Instructions ?Recorded albuterol sulfate 90 mcg/actuation 2 puff inhalation Q4-6H PRN 09/25/20 aerosol inhaler (ProAir HFA) shortness of breath or wheezing #18 grams gentamicin 0.3 % eye drops 2 drp ophthalmic (eye) Q8H #5 mL 09/22/21 ondansetron HCl 4 mg tablet 4 mg PO Q8H #30 tabs 05/16/23 triamcinolone acetonide 0.1 % 1 applic topical DAILY #15 grams 05/16/23 topical cream meloxicam 15 mg tablet 15 mg PO DAILY #90 tabs 10/02/23 amitriptyline 25 mg tablet See Rx Instructions .Route 06/03/24 .COMPLEX #90 tabs losartan 50 mg tablet See Rx Instructions .Route 09/17/24 .COMPLEX #180 tabs amlodipine 5 mg tablet 5 mg PO BEDTIME #90 tabs 11/01/24 tamsulosin 0.4 mg capsule 0.8 mg (2 x 0.4 mg) PO BEDTIME 03/10/25 #180 caps hydrocodone 10 mg-acetaminophen 1 tab PO Q6H PRN pain #120 tabs 04/16/25 325 mg tablet hydrocodone 10 mg-acetaminophen 1 tab PO Q6H PRN pain #120 tabs 04/16/25 325 mg tablet cyclobenzaprine 10 mg tablet 20 mg (2 x 10 mg) PO BEDTIME PRN 04/17/25 for muscle spasm #60 tabs duloxetine 60 mg capsule,delayed 60 mg PO BID #180 caps 05/07/25 release pregabalin 50 mg capsule 50 mg PO TID #270 caps 05/08/25 hydrocodone 10 mg-acetaminophen 1 tab PO Q6H PRN pain #120 tabs 07/08/25 325 mg tablet epinephrine 0.3 mg/0.3 mL 0.3 mg (0.3 mL) IM Q5-15M PRN 07/13/25 injection, auto-injector (EpiPen) anaphylaxis #2 ea famotidine 20 mg tablet (Pepcid) 20 mg PO DAILY 5 days #5 tabs 07/13/25 prednisone 20 mg tablet 20 mg PO BID 5 days #10 tabs 07/13/25 Allergies Allergy/AdvReac Type Severity Reaction Status Date / Time ketamine AdvReac Severe Agitated Verified 07/13/25 18:36 gabapentin AdvReac Intermediate memory Verified 07/13/25 18:36 change Review of Systems Review of Systems Narrative: General: Denies fever, chills, weight loss HEENT: Positive lip swelling, positive bee sting Denies headache, eye drainage, eye irritation, head trauma, sore throat, voice change Cardiovascular: Denies any chest pain, palpitations, tachycardia Respiratory: Denies any shortness of breath, cough, wheeze, stridor GI/: Denies any abdominal pain, nausea, vomiting, diarrhea, bright red blood per rectum, melanotic stools, urinary frequency, urinary retention, dysuria, hematuria MSK: Denies any joint pain, muscle pains, swelling Skin: Denies any rashes, lesions, discoloration Neuro: Denies any headache, lightheadedness, dizziness, fainting, weakness Psych: Denies SI/HI Patient History Medical History Nicotine dependence due to vaping non-tobacco product Insomnia due to medical condition Lumbar spondylosis Low back pain SI (sacroiliac) joint dysfunction Preoperative clearance Rib fracture BPH (benign prostatic hyperplasia) Insomnia Depression Pre-operative cardiovascular examination Conjunctivitis Acute bronchitis Facet arthropathy, lumbar Lumbar radiculopathy Lumbar stenosis Hypertension Leg pain, right Memory loss Ureteropelvic junction (UPJ) obstruction Adrenal nodule Liver nodule Chronic pain of right lower extremity History of diverticulitis Diverticulosis Compartment syndrome Chronic pain Hypertension Surgical History Status post decompression of compartment syndrome Social History Smoking Status: Current every day smoker Smoking Status: Current every day smoker tobacco type: cigarettes alcohol intake frequency: 0-2 drinks per day Exam Narrative Exam Narrative: General: Cooperative, well-developed, not in acute distress HEENT: Normocephalic, atraumatic, PERRLA, normal sclera, eyelids normal, patient with edema noted to the top lip, patient is speaking in full sentences protecting airway no voice changes no stridor no trismus, posterior oropharynx is clear without any signs of obstruction, uvula is midline, posterior oropharynx is clear without any signs of obstruction. Neck: Active full range of motion, atraumatic Chest: Normal to inspection, negative crepitus, no overlying erythema ecchymosis Respiratory: Normal respiratory effort, not in acute respiratory distress, clear to auscultation bilaterally negative cough, wheeze, tachypnea, rhonchi, rales Cardiology: Regular rate rhythm negative gallop, murmur, rubs GI/: No tenderness to palpation, soft, non rigid, normal to inspection, exam deferred MSK: Full active range of motion in all 4 extremities, atraumatic, no tenderness to palpation of any bony prominences Skin: No rashes or lesions noted Neuro: Alert awake oriented x3, moves all 4 extremities spontaneously, cranial nerves intact, able to answer all questions appropriately follows commands appropriately Psych: Cooperative, negative suicidal or homicidal ideations Initial Vital Signs Initial Vital Signs: Vital Signs Pulse Rate 84 07/13/25 18:33 Pulse Oximetry 97 07/13/25 18:33 Course Orders Ordered: ED Orders 07/13/25 19:28 CBC Auto Diff [Complete Blood Count AUTO DIFF] Stat CMP [Comprehensive Metabolic Panel] Stat Discontinued Medications Diphenhydramine HCl (Diphenhydramine 50 Mg/Ml Vial) 25 mg IV NOW ONE Stop: 07/13/25 18:42 Last Admin: 07/13/25 18:36 Dose: 25 mg Documented By: SAM Epinephrine HCl (Epinephrine 1 Mg/Ml) 0.5 mg IM NOW ONE Stop: 07/13/25 18:35 Last Admin: 07/13/25 18:37 Dose: 0.5 mg Documented By: SAM Famotidine (Famotidine 20 Mg/2 Ml Vial) 20 mg IV NOW ONE Stop: 07/13/25 18:42 Last Admin: 07/13/25 18:36 Dose: 20 mg Documented By: SAM Sodium Chloride (Normal Saline 0.9%) 1,000 mls @ 1,000 mls/hr IV BOLUS ONE Stop: 07/13/25 19:40 Last Infusion: 07/13/25 19:51 Dose: Infused Documented By: Admin: 07/13/25 18:46 Dose: 1,000 mls/hr Documented By: SAM Acetaminophen (Ofirmev) 1,000 mg in 100 mls @ 400 mls/hr IV NOW ONE Stop: 07/13/25 19:46 Last Infusion: 07/13/25 19:50 Dose: Infused Documented By: Admin: 07/13/25 19:37 Dose: 400 mls/hr Documented By: NICOLE Ketorolac Tromethamine (Ketorolac 30 Mg/Ml Vial) 15 mg IV NOW ONE Stop: 07/13/25 18:42 Last Admin: 07/13/25 18:49 Dose: 15 mg Documented By: SAM Methylprednisolone (Methylprednisolone Succ 125 Mg/2 Ml Vial) 125 mg IV NOW ONE Stop: 07/13/25 18:42 Last Admin: 07/13/25 18:35 Dose: 125 mg Documented By: SAM Ondansetron HCl (Ondansetron 4 Mg/2 Ml Inj) 4 mg IV NOW ONE Stop: 07/13/25 18:42 Last Admin: 07/13/25 18:51 Dose: 4 mg Documented By: SAM Vital Signs Vital signs: Vital Signs - 8 hr 07/13/25 18:33 07/13/25 18:34 07/13/25 18:34 Temperature Pulse Rate 84 85 Respiratory Rate 18 Blood Pressure 129/85 Pulse Oximetry 97 97 Oxygen Delivery Method Room Air 07/13/25 18:35 07/13/25 18:40 07/13/25 18:40 Temperature 98.5 F Pulse Rate 80 81 Respiratory Rate 18 19 Blood Pressure 129/85 137/89 Pulse Oximetry 97 96 Oxygen Delivery Method Room Air 07/13/25 18:50 07/13/25 18:50 07/13/25 19:00 Temperature Pulse Rate 85 84 Respiratory Rate 22 16 Blood Pressure 145/75 H Pulse Oximetry 96 94 Oxygen Delivery Method 07/13/25 19:00 07/13/25 19:10 07/13/25 19:10 Temperature Pulse Rate 83 Respiratory Rate 18 Blood Pressure 122/59 L 125/69 Pulse Oximetry 94 Oxygen Delivery Method 07/13/25 19:20 07/13/25 19:20 07/13/25 19:30 Temperature Pulse Rate 88 Respiratory Rate 18 Blood Pressure 109/58 L 112/60 Pulse Oximetry 95 Oxygen Delivery Method 07/13/25 19:30 07/13/25 19:40 07/13/25 19:40 Temperature Pulse Rate 89 90 Respiratory Rate 16 17 Blood Pressure 110/67 Pulse Oximetry 95 96 Oxygen Delivery Method MDM - Allergic Reaction Lab Data 07/13/25 19:28 07/13/25 19:28 Labs: Lab Results 07/13/25 Range/Units 19:28 WBC 14.9 H (4.5-11.0) X10^3/uL RBC 3.84 L (4.5-5.9) X10^6/uL Hgb 12.2 L (13.5-17.5) g/dL Hct 36.5 L (41-53) % MCV 95.0 (80-100) fL MCH 31.8 (26-34) PG MCHC 33.4 (30-36) % RDW 13.5 (11.6-14.8) % Plt Count 295 (150-400) X10^3/uL Neut % (Auto) Not Reportable Lymph % (Auto) Not Reportable [place] % (Auto) Not Reportable Eos % (Auto) Not Reportable Baso % (Auto) Not Reportable Lymph # (Auto) Not Reportable [place] # (Auto) Not Reportable Baso # (Auto) Not Reportable Total Counted 100 Seg Neutrophils % 70.0 (38-70) % Band Neutrophils % 1.0 L (3-7) % Lymphocytes % (Manual) 17.0 L (25-45) % Monocytes % (Manual) 6.0 (2-11) % Eosinophils % (Manual) 3.0 (2-4) % Basophils % (Manual) 3.0 H (0-1) % Neutrophils # (Manual) 56317 H (6540-9593) /uL RBC Morphology Normal morphology Sodium 135 L (137-145) mmol/L Potassium 3.4 (3.4-5.1) mmol/L Chloride 103 (98-107) mmol/L Carbon Dioxide 25 (22-32) mmol/L BUN 14 (9-20) mg/dL Creatinine 0.93 (0.66-1.25) mg/dL Estimated GFR > 60 (>60) mL/min BUN/Creatinine Ratio 15.1 (6-22) Glucose 216 H (70-99) mg/dL Calcium 8.2 L (8.4-10.2) mg/dL Total Bilirubin 0.6 (0.2-1.3) mg/dL AST 38 (17-59) IU/L ALT 28 (<50) IU/L Alkaline Phosphatase 74 (38-126) U/L Total Protein 6.4 (6.3-8.2) g/dL Albumin 3.7 (3.5-5.0) g/dL Globulin 2.7 (1.7-4.1) g/dL Albumin/Globulin Ratio 1.4 (1.0-2.8) MDM Narrative Medical decision making narrative: 60-year-old male with a past medical history of hypertension, hyperlipidemia, comes into the ED from home for evaluation of a swollen lip after bee sting. She states that this happened around 5:30 p.m.. He states that he is not allergic to any bees or medications. At time of evaluation patient complaining of pain and swelling to his upper lip, he has also stating that he feels like his throat is itchy but denies any difficulty swallowing breathing. At time of evaluation patient is speaking full sentences protecting airway no voice changes no stridor no trismus posterior oropharynx is clear without any signs of obstruction uvula is midline, tolerating secretions, patient was given IM epi immediately upon arrival, he was also given 1 L normal saline, Solu-Medrol, Pepcid, Benadryl. 1950: Was informed that patient is demanding some form of narcotic for his lip pain. We had multiple discussions with the patient regards to airway compromise given concern for allergic reaction, I did offer him Toradol and Ofirmev however he states that this will ?not help I informed him that we will not be giving him any narcotics for his lip swelling pain given risk of respiratory depression he states that he just wants to go home. I informed him this would be leaving against medical advice understands and we will be leaving against medical advice. I will send prescriptions however to his pharmacy for possible allergic reaction and informed him to return to the emergency department if worsening symptoms Discharge Plan Departure Patient Disposition: Left Against Medical Advice Clinical Impression: Allergic reaction, Accidental bee sting, Left against medical advice Instructions: DI for General Allergic Reactions Activity Restrictions/Additional Instructions: We have discussed and explained the clinical examination, laboratory results, and imaging studies so far with the patient, both with full medical disclosure and layman's terms. The patient is an adult and is of sound mind. The patient appears to have intact insight, judgement and reason. Is alert and oriented x4. The patient is clinically sober and appears free from any distracting injury. The patient verbalized understanding. Despite incomplete workup the patient expresses a wish to leave. We have explained to the patient that leaving now would be leaving against medical advice. We have explained that leaving against medical advice without a complete workup and/or identification of pathology may lead to worsening of symptoms and even the possibility of disability or . The patient understands that the only way to safely avoid this is to complete the workup as leaving the grounds of the hospital would be leaving the care of trained medical collections representative, specialists, and resources that were available to the patient. We have expressed the need for the patient to stay in the hospital, considering the constellation of symptoms of breath the patient here. Despite this lengthy conversation the patient still expresses desire to leave against medical advice and demonstrates a full capacity to make their own medical decisions. We have informed the patient to call 911 or to seek immediate medical attention at their nearest emergency department if there are symptoms were to worsen/or change their mind. Prescriptions: New prednisone 20 mg tablet 20 mg PO BID 5 Days Qty: 10 0RF famotidine [Pepcid] 20 mg tablet 20 mg PO DAILY 5 Days Qty: 5 0RF epinephrine [EpiPen] 0.3 mg/0.3 mL auto-injector 0.3 mg IM Q5-15M PRN (Reason: anaphylaxis) Qty: 2 2RF Rx Instructions: do not exceed 3 doses per episode No Action amitriptyline 25 mg tablet See Rx Instructions .ROUTE .COMPLEX Qty: 90 1RF Dose Instruction: TAKE ONE TABLET BY MOUTH NIGHTLY AT BEDTIME Rx Instructions: TAKE ONE TABLET BY MOUTH NIGHTLY AT BEDTIME losartan 50 mg tablet See Rx Instructions .ROUTE .COMPLEX Qty: 180 2RF Dose Instruction: TAKE TWO TABLETS BY MOUTH ONCE DAILY Rx Instructions: TAKE TWO TABLETS BY MOUTH ONCE DAILY tamsulosin 0.4 mg capsule 0.8 mg PO BEDTIME Qty: 180 3RF hydrocodone-acetaminophen 10-325 mg tablet 1 tab PO Q6H PRN (Reason: pain) Qty: 120 0RF Rx Instructions: Refill 2 hydrocodone-acetaminophen 10-325 mg tablet 1 tab PO Q6H PRN (Reason: pain) Qty: 120 0RF Rx Instructions: Refill 3 duloxetine 60 mg capsule,delayed release(DR/EC) 60 mg PO BID Qty: 180 0RF pregabalin 50 mg capsule 50 mg PO TID Qty: 270 1RF hydrocodone-acetaminophen 10-325 mg tablet 1 tab PO Q6H PRN (Reason: pain) Qty: 120 0RF Rx Instructions: Refill 1 albuterol sulfate [ProAir HFA] 90 mcg/actuation HFA aerosol inhaler 2 puff inhalation Q4-6H PRN (Reason: shortness of breath or wheezing) Qty: 18 1RF gentamicin 0.3 % drops 2 drp ophthalmic (eye) Q8H Qty: 5 0RF amlodipine 5 mg tablet 5 mg PO BEDTIME Qty: 90 3RF cyclobenzaprine 10 mg tablet 20 mg PO BEDTIME PRN (Reason: for muscle spasm) Qty: 60 2RF Rx Instructions: take two tablets (20 mg) at bedtime acetaminophen [Tylenol] PO ondansetron HCl 4 mg tablet 4 mg PO Q8H Qty: 30 0RF triamcinolone acetonide 0.1 % cream 1 applic topical DAILY Qty: 15 2RF Rx Instructions: apple pea size amount to eczema patches meloxicam 15 mg tablet 15 mg PO DAILY Qty: 90 1RF omeprazole 20 mg Capsule,Delayed Release(Dr/Ec) 20 mg PO DAILY Referrals: Seferino Meier, DO [Primary Care Provider, Family Practice] Stand Alone Forms: Patient Portal/API, Against Med. Advice ([place]ian)
[2025-07-13] MEDS: SODIUM CHLORIDE 0.9% 1,000 ML 1000 ML IV (18:46)
[2025-07-13] MEDS: KETOROLAC 30 MG/ML VIAL 15 MG IV (18:49)
[2025-07-13] MEDS: ONDANSETRON 4 MG/2 ML INJ IV (18:51)
--- NOTE | 2025-07-13 18:58 | PC.NURSE ---
Lip is quite swollen, maintaining airway. reports airway is getting better. lip pain. nose pain. itchiness has subsided.
[2025-07-13 19:36] LABS: Hematocrit 36.5 % (41-53); Hemoglobin 12.2 g/dL (13.5-17.5); Mean Corpuscular HGB Conc 33.4 % (30-36); Mean Corpuscular Hemoglobin 31.8 PG (26-34); Mean Corpuscular Volume 95.0 fL (80-100); Platelet Count 295 X10^3/uL (150-400)
[2025-07-13] MEDS: ACETAMINOPHEN IV 1,000 MG/100 ML VIAL 400 MG IV (19:37)
[2025-07-13 19:44] LABS: Alanine Aminotransferase 28 IU/L (<50); Albumin 3.7 g/dL (3.5-5.0); Albumin Globulin Ratio 1.4 (1.0-2.8); Alkaline Phosphatase 74 U/L (38-126); Blood Urea Nitrogen 14 mg/dL (9-20); Calcium 8.2 mg/dL (8.4-10.2); Carbon Dioxide 25 mmol/L (22-32); Chloride 103 mmol/L (98-107); Estimated Glomerular Filt Rate > 60 mL/min (>60); Globulin 2.7 g/dL (1.7-4.1); Glucose 216 mg/dL (70-99); HEMOLYSIS < 15 (0-50); Potassium 3.4 mmol/L (3.4-5.1); Sodium 135 mmol/L (137-145); Total Protein 6.4 g/dL (6.3-8.2)
[2025-07-13 19:45] LABS: Add Manual Diff / Slide Review YES
--- NOTE | 2025-07-13 19:48 | PC.NURSE ---
pt going AMA. This tech took out the IV. ROGELIO Escobar aware
--- NOTE | 2025-07-13 19:54 | PC.NURSE ---
in to hang the IV tylenol, pt state you are not giving me any pain medicine I told you I need dilaudid, it should be on my chart that the only thing that helps is Dilaudid attempted to explain to pt that opiates would depress his depress his respiratory drive and possibly cause him to loose his airway that was already swollen from the allergic reaction and then we would have to put a tube down his throat. pt restated that he wanted the dilaudid. it was explained to the patient again that we could not give him opiates when there was a potential for him to loose his airway, that it was a safety issue. reminded pt that he was given toradol and presently IV tylenol was being infused.
[2025-07-13 20:04] LABS: Band Neutrophils Percent 1.0 % (3-7); Basophils Percent Manual 3.0 % (0-1); Eosinophils Percent Manual 3.0 % (2-4); Lymphocytes Percent Manual 17.0 % (25-45); Monocytes Percent Manual 6.0 % (2-11); Neutrophils Absolute Manual 10579 /uL (3000-5900); RBC Morphology Normal Morphology; Segmented Neutrophils Percent 70.0 % (38-70); Total Cells Counted 100
--- NOTE | 2025-07-13 20:11 | PC.NURSE ---
pt refusing to sign the AMA form IV was removed and pt left, Dr Stock was informed but pt left prior to Dr being able to talk to pt. pt did not want to wait to speak to the Dr.
== END 2025-07-13 20:18 | disposition left against medical advice (07) ==
PROVIDERS: Emergency Provider Student in an Organized Health Care Education/Training Program; Family Provider Family Medicine; PCP Family Medicine
DX: T78.40XA Allergy, unspecified, initial encounter (principal); R22.0 Localized swelling, mass and lump, head; W57.XXXA Bitten or stung by nonvenomous insect and other nonvenomous arthropods, initial encounter
CPT/HCPCS: 36415; 80053; 85007; 85025; 96361; 96372; 96374; 96375; 99284; J0131; J0165; J1200; J1885; J2405; J2919